=== PATIENT | female | born 1970 | race African-American/Black ===

== ENCOUNTER 2021-03-15 08:01 | Outpatient (REF) | payer MEDICAID, SELFPAY ==
--- NOTE | ~2021-03-15 | XR_ITS ---
EXAMINATION: XR ANKLE, RIGHT CLINICAL INFORMATION: Pain COMPARISON: None TECHNIQUE: AP, lateral, and mortise views of the right ankle. FINDINGS: No fracture, dislocation, destructive process. There are subchondral lucencies talar dome. This may be related to osteochondral lesions and/or occult degenerative changes. There is no joint narrowing or erosive changes. No subchondral sclerosis. No visible chondrocalcinosis. There is spurring at the distal anterior tibia and tip medial malleolus. The ankle mortise is symmetric. The subtalar joint is unremarkable. There is bulky plantar calcaneal spur and smaller posterior calcaneal spur. XR/XR ankle RT min 3V IMPRESSION: Subtle subchondral lucencies talar done which may be related to osteochondral lesions or degenerative changes. Calcaneal spurs.
== END 2021-03-15 08:02 | disposition home or self-care (01) ==
LOC: HO.HOSX 08:01
PROVIDERS: Visit Provider Physician Assistant
DX: M19.071 Primary osteoarthritis, right ankle and foot (principal)
CPT/HCPCS: 20600; 73610; 99202; J1020

== ENCOUNTER 2021-04-10 08:15 | Outpatient (REF) | payer MEDICAID, SELFPAY ==
[2021-04-10 10:57] LABS: HCG Quantitative < 2 mIU/mL; TSH reflex Free T4 1.49 uIU/mL (0.32-4.0)
[2021-04-10 15:44] LABS: CT PCR NOT DETECTED (Not Detect.); NG PCR NOT DETECTED (Not Detect.)
[2021-04-12 20:51] LABS: HPV mRNA E6/E7 rflx Not Detected (Not Detected)
== END 2021-04-10 08:16 | disposition home or self-care (01) ==
LOC: HO.LAB 08:15
PROVIDERS: PCP Internal Medicine; Visit Provider Obstetrics & Gynecology
DX: Z01.411 Encounter for gynecological examination (general) (routine) with abnormal findings (principal); Z11.51 Encounter for screening for human papillomavirus (HPV); N93.9 Abnormal uterine and vaginal bleeding, unspecified
CPT/HCPCS: 36415; 84443; 84702; 85027; 87491; 87591; 87624; 88142; 99202

== ENCOUNTER 2021-04-14 07:47 | Outpatient (REF) | payer MEDICAID, SELFPAY ==
[2021-04-14 08:39] LABS: Hemoglobin 8.9 g/dl (12.0-16.0); Mean Corpuscular Hemoglobin 18.7 pg (27.0-33.0); Mean Corpuscular Volume 69.3 fL (80.0-98.0); Platelet Count 251 X10*3/uL (160-400); Red Blood Count 4.76 X10*6/uL (4.20-5.50); Red Cell Distribution Width 24.2 % (11.0-16.0); White Blood Count 7.2 X10*3/uL (4.8-10.8)
== END 2021-04-14 07:48 | disposition home or self-care (01) ==
LOC: HO.LAB 07:47
PROVIDERS: PCP Internal Medicine; Visit Provider Obstetrics & Gynecology
DX: N93.9 Abnormal uterine and vaginal bleeding, unspecified (principal)
CPT/HCPCS: 36415; 85027

== ENCOUNTER 2021-05-05 09:29 | Day surgery (SDC) | payer MEDICAID, SELFPAY ==
[2021-05-05] VITALS (7 sets, daily range): BP systolic 110–123; BP diastolic 51–73; PULSE 92–105; RESP 20; TEMP 36.8–37.6; O2SAT 95–98; BMI 51.7
--- NOTE | ~2021-05-05 | FL_ITS ---
EXAMINATION: XR LUMBAR PUNCTURE CLINICAL INFORMATION: This is a 50-year-old female with possible pseudotumor cerebra I. The patient presents for measurement of opening pressures and to obtain cerebrospinal fluid. COMPARISON: None TECHNIQUE: Informed consent was obtained from the patient prior to the procedure. During this process, the procedure and potential alternatives were explained along with the intended outcome and benefits. The risks of the procedure including the possibility of an unsuccessful procedure, as well as the risk of not doing the procedure were discussed. The patient was given the opportunity to ask questions regarding the procedure and appear competent he decisions. A signed consent form was document this discussion was placed in the medical record. A time out procedure was performed. All elements of maximal sterile barrier technique followed including use of cap, mask, sterile gown, sterile gloves, a sterile full body drape and hand hygiene. Also followed skin preparation with 2% chlorhexidine for cutaneous antisepsis, and sterile ultrasound preparation with sterile gel and probe cover when applicable. SITE MARKING: As part of the preprocedure verification policy, a site marking procedure was initiated. Due to the nature the procedure, the insertion site could not be predetermined thus invoking the policy of exemption to site laterality and marking. Insertion site marking was performed in the procedure room in conjunction with imaging confirmation. The patient was placed prone on the fluoroscopic table. The patient's back was prepped and draped in usual sterile fashion. Using standard interventional and sterile technique a Sprotte needle was introduced into the cerebrospinal space. Orthogonal fluoroscopic views were obtained to confirm the position. Pressure measurements were obtained. After opening pressures were obtained fluid was drained. A total of 8 mL of clear fluid was drained. The specimens were placed in 4 separate tubes using standard technique. The specimens were marked appropriately and sent to the laboratory in order to inform the referring physician of the results. The needle was removed. Good hemostasis was achieved. A sterile dressing was placed. The patient was transferred from the room in unchanged condition. The patient was to lay flat for 3 hours in the recovery room. The patient will then be discharged home in good condition with written instructions. FINDINGS: Opening pressure: 12 mmHg. 8 mL of clear fluid was sent to the laboratory. FLUOROSCOPY TIME: 0.7 minutes. DOSE AREA PRODUCT: 0.792 uGy-m2 (microgray-meter squared) FL/FL guided lumbar puncture LP IMPRESSION: 1. Successful fluoroscopically guided lumbar puncture.
[2021-05-05 09:50] LABS: MANUAL DIFF FLAG NO
[2021-05-05 09:56] LABS: Basophils Absolute Auto 0.1 X10*3/uL (0.0-0.2); Basophils Percent Auto 0.8 % (0-2); Eosinophils Absolute Auto 0.2 X10*3/uL (0.0-0.4); Eosinophils Percent Auto 2.4 % (0-4); Hematocrit 32.6 % (37.0-47.0); Hemoglobin 8.9 g/dl (12.0-16.0); Imm Gran Abs Auto 0.01 X10*3/uL (0.00-0.03); Imm Gran Pct Auto 0.2 % (0.0-0.4); Lymphocytes Absolute Auto 2.3 X10*3/uL (1.2-4.9); Lymphocytes Percent Auto 34.5 % (20-40); Mean Corpuscular HGB Conc 27.3 g/dl (31.0-35.0); Mean Corpuscular Hemoglobin 19.4 pg (27.0-33.0); Mean Corpuscular Volume 71.2 fL (80.0-98.0); Mean Platelet Volume 10.4 fL (9.4-12.3); Monocytes Absolute Auto 0.6 X10*3/uL (0.1-1.2); Monocytes Percent Auto 8.3 % (2-11); Neutrophils Absolute Auto 3.6 x10*3/uL (2.0-8.3); Neutrophils Percent Auto 53.8 % (45-73); Platelet Count 238 X10*3/uL (160-400); Red Blood Count 4.58 X10*6/uL (4.20-5.50); Red Cell Distribution Width 23.5 % (11.0-16.0); White Blood Count 6.6 X10*3/uL (4.8-10.8)
[2021-05-05 10:00] LABS: INTERNATIONAL NORM RATIO 1.1 (0.9-1.1); Prothrombin Time 12.7 SEC (9.9-13.0)
[2021-05-05 10:02] LABS: Partial Thromboplastin Time 33.1 SEC (24.1-38.0)
[2021-05-05 12:38] LABS: CSF Appearance Clear, Colorless; CSF Tube # 3
[2021-05-05 12:50] LABS: Total Protein CSF 22.8 mg/dL (15-45)
[2021-05-05 12:53] LABS: Appearance CSF CLEAR; CSF Tube # 4; Color CSF COLORLESS; Lymphocytes CSF 100 %; Neutrophils CSF 0 %; Red Blood Cell CSF 2 MM*3; White Blood Cell CSF 1 MM*3
[2021-05-05 12:54] LABS: CSF Monos 0 %; CSF Other Cells % 0 %
[2021-05-05] MEDS: Acetaminophen 325 MG TABLET 650 MG PO (14:10)
[2021-05-05] MEDS: oxyCODONE HCl Immed Release 5 MG TABLET PO (14:11)
== END 2021-05-05 15:09 | disposition home or self-care (01) ==
PROVIDERS: Psychiatry & Neurology Neurology; Radiology Diagnostic Radiology; PCP Internal Medicine; Visit Provider Radiology Diagnostic Radiology
PROC: 009U3ZZ Drainage of Spinal Canal, Percutaneous Approach (ICD-10-PCS; CPT 62270; principal; 2021-05-05 11:00)
DX: G93.2 Benign intracranial hypertension (principal); I10 Essential (primary) hypertension; E11.9 Type 2 diabetes mellitus without complications; M79.7 Fibromyalgia; F32.9 Major depressive disorder, single episode, unspecified; Z79.84 Long term (current) use of oral hypoglycemic drugs; Z79.899 Other long term (current) drug therapy; F17.210 Nicotine dependence, cigarettes, uncomplicated
CPT/HCPCS: 36415; 62328; 84157; 85025; 85610; 85730; 87015; 87070; 87205; 89051

== ENCOUNTER 2021-05-17 10:26 | Outpatient (REF) | payer MEDICAID, SELFPAY ==
--- NOTE | 2021-05-17 10:15 | EMG_ITS ---
This is a 50-year-old woman with a 15-year history of diabetes, who comes in with more than 1 year history of worsening right hand numbness. PHYSICAL EXAMINATION: She is morbidly obese. Cranial nerves II through XII are normal. Muscle tone and strength are normal in all 4 extremities. No Tinel or Phalen sign. IMPRESSION: Carpal tunnel syndrome. Nerve conduction EMG study: Mild carpal tunnel syndrome on the right. Normal EMG of the right C5-T1 innervated muscles. MD AYANNA Douglass/FARTUN / [id number]
== END 2021-05-17 10:27 | disposition home or self-care (01) ==
LOC: HO.NEURO 10:26
PROVIDERS: PCP Internal Medicine; Visit Provider Internal Medicine
DX: G56.01 Carpal tunnel syndrome, right upper limb (principal)
CPT/HCPCS: 95885; 95910

== ENCOUNTER 2021-05-22 09:30 | Outpatient (REF) | payer MEDICAID, SELFPAY ==
[2021-05-22 10:53] LABS: Estimated Average Glucose 120 mg/dL; Hemoglobin A1c % 5.8 %
[2021-05-22 11:41] LABS: T4 Thyroxine 7.7 ug/dL (4.5-12.0)
[2021-05-23 15:51] LABS: Triiodothyronine T3 Free 3.1 pg/mL (2.3-4.2)
[2021-05-23 17:36] LABS: Thyroglobulin Antibodies <1 IU/mL (< or = 1); Thyroid Peroxidase Antibodies <1 IU/mL (<9)
== END 2021-05-22 09:31 | disposition home or self-care (01) ==
LOC: HO.LAB 09:30
PROVIDERS: PCP Internal Medicine; Visit Provider Optometrist
DX: N93.9 Abnormal uterine and vaginal bleeding, unspecified (principal); H05.20 Unspecified exophthalmos
CPT/HCPCS: 36415; 58100; 81025; 83036; 84436; 84443; 84481; 86376; 86800; 88305

== ENCOUNTER 2021-10-05 13:20 | Outpatient (REF) | payer MEDICAID, SELFPAY | END 2021-10-05 13:21 | disposition home or self-care (01) | LOC: HO.MDS 13:20 | PROVIDERS: Visit Provider Internal Medicine | DX: D50.9 Iron deficiency anemia, unspecified (principal) | CPT/HCPCS: 96365 ==

== ENCOUNTER 2021-10-11 12:08 | Outpatient (REF) | payer MEDICAID, SELFPAY | END 2021-10-11 12:09 | disposition home or self-care (01) | LOC: HO.MDS 12:08 | PROVIDERS: Visit Provider Internal Medicine | DX: D50.9 Iron deficiency anemia, unspecified (principal) | CPT/HCPCS: 96365; J1756 ==

== ENCOUNTER 2021-10-18 11:00 | Outpatient (REF) | payer MEDICAID, SELFPAY | END 2021-10-18 11:01 | disposition home or self-care (01) | LOC: HO.MDS 11:00 | PROVIDERS: Visit Provider Internal Medicine | DX: D50.9 Iron deficiency anemia, unspecified (principal) | CPT/HCPCS: 96365; J1756 ==

== ENCOUNTER 2022-12-20 18:18 | Outpatient (REF) | payer MEDICAID, SELFPAY ==
[2022-12-20 19:00] LABS: Influenza A PCR NEGATIVE (Negative); Influenza B PCR NEGATIVE (Negative); Resp Syncy Virus RNA Qual PCR NEGATIVE (Negative); SARS COV2 PCR INHOUSE NEGATIVE (Negative)
== END 2022-12-20 18:19 | disposition home or self-care (01) ==
LOC: HO.HHCLNP 18:18
PROVIDERS: Visit Provider Nurse Practitioner Primary Care
DX: R05.1 Acute cough (principal); Z11.52 Encounter for screening for COVID-19
CPT/HCPCS: 0241U; 87070

== ENCOUNTER 2023-01-31 12:51 | Outpatient (REF) | payer MEDICAID, SELFPAY ==
[2023-01-31 16:16] LABS: MANUAL DIFF FLAG NO
[2023-01-31 16:24] LABS: Basophils Absolute Auto 0.1 X10*3/uL (0.0-0.2); Basophils Percent Auto 0.5 % (0-2); Eosinophils Absolute Auto 0.2 X10*3/uL (0.0-0.4); Eosinophils Percent Auto 1.6 % (0-4); Hematocrit 46.9 % (37.0-47.0); Hemoglobin 14.4 g/dl (12.0-16.0); Imm Gran Abs Auto 0.03 X10*3/uL (0.00-0.03); Imm Gran Pct Auto 0.3 % (0.0-0.4); Lymphocytes Absolute Auto 3.8 X10*3/uL (1.2-4.9); Lymphocytes Percent Auto 36.7 % (20-40); Mean Corpuscular HGB Conc 30.7 g/dl (31.0-35.0); Mean Corpuscular Hemoglobin 25.5 pg (27.0-33.0); Mean Corpuscular Volume 83.2 fL (80.0-98.0); Monocytes Absolute Auto 0.7 X10*3/uL (0.1-1.2); Monocytes Percent Auto 6.6 % (2-11); Neutrophils Absolute Auto 5.6 x10*3/uL (2.0-8.3); Neutrophils Percent Auto 54.3 % (45-73); Platelet Count 278 X10*3/uL (160-400); Red Blood Count 5.64 X10*6/uL (4.20-5.50); Red Cell Distribution Width 15.9 % (11.0-16.0); White Blood Count 10.3 X10*3/uL (4.8-10.8)
[2023-01-31 16:37] LABS: Cholesterol 141 mg/dL (<200); HDL Cholesterol 35 mg/dL (>40); LDL Cholesterol Calculated 78 mg/dL (<100); Triglycerides 143 mg/dL (<150)
[2023-01-31 16:38] LABS: Alanine Aminotransferase 17 U/L (0-31); Albumin Level 4.1 g/dL (3.5-5.0); Alkaline Phosphatase 92 U/L (39-117); Anion Gap 13 (12-20); Aspartate Amino Transferase 14 U/L (5-31); Bilirubin Total 0.3 mg/dL (0.0-1.0); Blood Urea Nitrogen 12 mg/dL (9-16); Calcium 10.9 mg/dL (8.4-10.2); Carbon Dioxide 25 mmol/L (22-29); Chloride 108 mmol/L (96-108); Estimated Glomerular Filt Rate > 60; Glucose Random 93 mg/dL (60-115); Iron 49 mcg/dL (30-160); Percent Iron Saturation 13 % (15-50); Potassium 3.8 mmol/L (3.3-5.1); Sodium 142 mmol/L (135-145); Total Iron Binding Capacity 378 mcg/dL (228-428); Total Protein 8.2 g/dL (6.5-8.0); Unsaturated Iron Binding 329 ug/dL
[2023-01-31 16:46] LABS: Microalbum/Creatinine Ratio Ur 32.2 ug/mg cr (<30)
[2023-01-31 16:57] LABS: Ferritin 41 ng/mL (10-250); TSH reflex Free T4 1.66 uIU/mL (0.32-4.0)
[2023-01-31 17:09] LABS: Folate 6.3 ng/mL (> or = 4.0); Vitamin B12 705 pg/mL (200-900)
[2023-01-31 17:52] LABS: Reflex LDLD? No
== END 2023-01-31 12:52 | disposition home or self-care (01) ==
LOC: HO.HHCL 12:51
PROVIDERS: Visit Provider Family Medicine
DX: E11.9 Type 2 diabetes mellitus without complications (principal); D50.9 Iron deficiency anemia, unspecified; R35.0 Frequency of micturition
CPT/HCPCS: 36415; 80053; 80061; 82043; 82570; 82607; 82728; 82746; 83540; 84443; 85025; 87086

== ENCOUNTER 2023-04-26 13:29 | Outpatient (REF) | payer MEDICAID, SELFPAY ==
--- NOTE | ~2023-04-26 | XR_ITS ---
EXAMINATION: XR CHEST CLINICAL INFORMATION: Pneumonia of both lungs. COMPARISON: None available. TECHNIQUE: 2 views of the chest were obtained. FINDINGS: The trachea is in normal anatomic position. The cardiomediastinal silhouette is normal in size and configuration. There are linear opacities within the mid aspects of both lungs representing either linear atelectasis or scarring. There is no consolidation. There is no pleural effusion or pneumothorax. No acute osseous abnormality. XR/XR chest 2V IMPRESSION: Linear opacities within the mid lungs bilaterally represent either linear atelectasis or scarring. No consolidation.
== END 2023-04-26 13:30 | disposition home or self-care (01) ==
LOC: HO.HHCX 13:29
PROVIDERS: Visit Provider Nurse Practitioner Primary Care
DX: J18.9 Pneumonia, unspecified organism (principal)
CPT/HCPCS: 71046

== ENCOUNTER 2023-08-09 14:37 | Outpatient (REF) | payer MEDICAID, SELFPAY ==
[2023-08-09 16:14] LABS: MANUAL DIFF FLAG NO
[2023-08-09 16:17] LABS: Basophils Percent Auto 0.4 % (0-2); Eosinophils Absolute Auto 0.1 X10*3/uL (0.0-0.4); Eosinophils Percent Auto 0.9 % (0-4); Hematocrit 44.1 % (37.0-47.0); Imm Gran Abs Auto 0.02 X10*3/uL (0.00-0.03); Imm Gran Pct Auto 0.2 % (0.0-0.4); Lymphocytes Absolute Auto 3.3 X10*3/uL (1.2-4.9); Lymphocytes Percent Auto 30.6 % (20-40); Mean Corpuscular HGB Conc 31.7 g/dl (31.0-35.0); Mean Corpuscular Hemoglobin 26.4 pg (27.0-33.0); Mean Corpuscular Volume 83.1 fL (80.0-98.0); Mean Platelet Volume 11.6 fL (9.4-12.3); Monocytes Absolute Auto 0.8 X10*3/uL (0.1-1.2); Monocytes Percent Auto 7.2 % (2-11); Neutrophils Absolute Auto 6.5 x10*3/uL (2.0-8.3); Neutrophils Percent Auto 60.7 % (45-73); Platelet Count 227 X10*3/uL (160-400); Red Blood Count 5.31 X10*6/uL (4.20-5.50); Red Cell Distribution Width 15.5 % (11.0-16.0); White Blood Count 10.8 X10*3/uL (4.8-10.8)
[2023-08-09 16:40] LABS: Estimated Average Glucose 117 mg/dL; Hemoglobin A1c % 5.7 % (<6.0)
[2023-08-09 16:50] LABS: Alanine Aminotransferase 17 U/L (0-31); Albumin Level 4.2 g/dL (3.5-5.0); Alkaline Phosphatase 82 U/L (39-117); Anion Gap 16 (12-20); Aspartate Amino Transferase 29 U/L (5-31); Bilirubin Total 0.3 mg/dL (0.0-1.0); Blood Urea Nitrogen 12 mg/dL (9-16); Calcium 10.4 mg/dL (8.4-10.2); Carbon Dioxide 21 mmol/L (22-29); Chloride 108 mmol/L (96-108); Estimated Glomerular Filt Rate > 60; Glucose Random 101 mg/dL (60-115); Potassium 3.9 mmol/L (3.3-5.1); Sodium 141 mmol/L (135-145); Total Protein 8.1 g/dL (6.5-8.0)
[2023-08-09 17:09] LABS: TSH reflex Free T4 1.91 uIU/mL (0.32-4.0)
== END 2023-08-09 14:38 | disposition home or self-care (01) ==
LOC: HO.HHCL 14:37
PROVIDERS: Visit Provider Student in an Organized Health Care Education/Training Program
DX: E11.9 Type 2 diabetes mellitus without complications (principal)
CPT/HCPCS: 36415; 80053; 83036; 84443; 85025

== ENCOUNTER 2023-10-29 11:56 | Outpatient (REF) | payer MEDICAID, SELFPAY | END 2023-10-29 11:57 | disposition home or self-care (01) | LOC: HO.HHCL 11:56 | PROVIDERS: Visit Provider Family Medicine | DX: Z13.89 Encounter for screening for other disorder (principal) ==

== ENCOUNTER 2023-11-15 10:49 | Outpatient (AMB) | payer MEDICAID, SELFPAY ==
--- NOTE | 2023-11-15 07:49 | A.OFFVIS_ITS ---
Intake Visit Reasons: Current Smoker Allergies aspirin [ASA] Adverse Reaction (Verified 05/22/21 10:21) GI INTOLERANCE HPI HPI Current Smoker: Details: Initial visit for this 53yo smoker with a 40PYH. Patient started smoking at age 8 for 45 years at 1-1.5ppd. Currently at 1/4ppd. . Reports marijuana use daily. Denies second hand smoke exposure. Denies exposure to chemicals or substances like asbestos. . Denies known family history of lung cancer. Denies personal history of cancers. Denies chest CT in last year. . Denies recent travel outside the [place]. Denies recent respiratory illness or recent hospitalization for respiratory issues. Admits testing positive for COVID. Admits receiving COVID Vaccine. . Denies fever, chills, new/worsening cough, hemoptysis, hoarseness or dysphagia. Denies significant chest pain, significant dyspnea or unintentional weight loss. Patient Lung Cancer Screening Questionnaire reviewed with patient by provider. . Shared Decision Making Completed. Patient meets criteria. Discussed in detail with patient, the risk vs benefit of LDCT screening. Patient consents to proceed with scan. Discussed smoking cessation. [facility] Medical History (Updated 11/15/23 @ 11:11 by Trena Guido PA-C) Fibromyalgia Pseudotumor cerebri HTN (hypertension) Hyperlipidemia Diabetes GERD (gastroesophageal reflux disease) SUDHAKAR (obstructive sleep apnea) Asthma Nicotine dependence, cigarettes, uncomplicated Iron deficiency anemia Morbid obesity Vertigo Carpal tunnel syndrome Surgical History (Updated 09/10/23 @ 12:27 by Trena Guido PA-C) Hx of removal of cyst History of ankle surgery Family History Mother Diabetes Maternal Aunt Pancreatic cancer Father ESRD (end stage renal disease) Social History (Updated 11/15/23 @ 11:11 by Trena Guido PA-C) Household Members: Other Household Members Other:: father Housing: House Patient Tobacco Use Status: Current everyday Tobacco user Tobacco use type: Cigarette Years Smoked: (onset 8yo, 1-1.5ppd x 45yrs, now 1/4ppd - 40pyh) Substance Use Type: Marijuana service: No Current occupational status: unemployed 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 - Patient meets criteria for LDCT for lung cancer screening purposes and is asymptomatic. - Smoking cessation counseling offered. Patients can always call [phone]. - Will arrange for a LDCT scan of the chest for screening purposes at [facility]. - Risks, benefits, and alternatives were discussed in detail and the patient agrees to proceed. - Risks discussed include but are not limited to: radiation exposure, anxiety during testing and while awaiting results, false negatives, false positives and possibility of additional intervention such as further imaging or surgical procedures for benign disease. - Benefits are obviously detection of lung cancer at an early stage which can lead to improved outcomes. - Discussed the importance of screening program compliance with adherence to yearly LDCT scan as scheduled - or sooner interval scans for personalized screening regimen. - Discussed follow up plan. Our office will send a letter discussing results and if needed set up phone call and office visit based on CT findings. - Patient educated on results categorization and the management decisions for s uspicious findings potentially found on the screening LDCT scan. Any patient with a Lung RADS score of 3 or 4 will be reviewed by a multidisciplinary team at [facility] to form a plan of action in regards to scan findings. - If further work up is warranted for a suspicious lung finding this will be followed by the Lung Cancer Screening program in conjunction with the Thoracic Surgery Department at [facility]. - A copy of the office note and LDCT will be sent to the patient's PCP - as well as documentation on any associated further plans of care. - Incidental findings on LDCT are the PCP's responsibility. These findings are indicated with an S finding on the LDCT Assessment. A note discussing the findings will be sent to the PCP who is then responsible for further management. - All questions answered.? Coding Level of Care Code Lung Cancer Screening G0296 Diagnoses Nicotine dependence, cigarettes, uncomplicated F17.210
== END 2023-11-15 11:22 | disposition home or self-care (01) ==
PROVIDERS: Visit Provider Physician Assistant Medical
DX: F17.210 Nicotine dependence, cigarettes, uncomplicated (principal)
CPT/HCPCS: G0296

== ENCOUNTER 2023-11-15 11:10 | Outpatient (REF) | payer MEDICAID, SELFPAY ==
--- NOTE | ~2023-11-15 | CT_ITS ---
EXAMINATION: CT LOW-DOSE SCREENING CHEST WITHOUT CONTRAST CLINICAL INFORMATION: Nicotine dependence, cigarettes, uncomplicated. The patient is a current smoker with a 44 pack-year history of smoking. COMPARISON: None available. TECHNIQUE: Multidetector volumetric CT imaging of the chest is performed on a Siemens SOMATOM Definition scanner without contrast using low dose technique. Additional 2D coronal and sagittal reformatted images and axial 3D maximum intensity projection (MIP) images are generated on the CT workstation. This CT examination was performed using dose optimization techniques as appropriate, variously including the following: *Automated exposure control *Adjustment of mA and/or kV according to patient size (this includes techniques or standardized protocols for targeted exams where dose is matched to indication/reason for exam; i.e. extremities or head) *Use of iterative reconstruction technique TOTAL EXAM DLP: 97 mGy-cm. CTDIvol: 3.02 mGy. FINDINGS: PULMONARY NODULES: No suspicious pulmonary nodules. LUNGS: Lungs bilaterally symmetrically expanded. There is mild emphysema and bronchial thickening without bronchiectasis. There is left upper lobe along with left lower lobe atelectasis/scarring. No effusion or pneumothorax. Central airways patent. MEDIASTINUM: No mediastinal, hilar or axillary adenopathy or free fluid collection. CORONARY ARTERY CALCIFICATION: None visualized on this study. THYROID GLAND: Unremarkable to the extent seen. CARDIOVASCULAR STRUCTURES: Aortic and heart size normal. No pericardial effusion. CHEST WALL/AXILLA: Unremarkable. UPPER ABDOMEN: Included portions of the solid organs in the upper abdomen unremarkable on noncontrast imaging. OSSEOUS STRUCTURES: No suspicious focal findings. CT/CT lung screening IMPRESSION: No findings seen suspicious for malignancy. ASSESSMENT: 1. Lung-RADS Category 1: Negative. There are no nodules or there are definitely benign nodules. N/A 2. Lung-RADS Category S: Negative. There are no clinically significant or potentially clinically significant findings not related to the lungs requiring urgent additional evaluation. RECOMMENDATION: Continued routine annual low-dose CT lung screening in 1 year is recommended. An order for CT CHEST LOW DOSE CANCER SCREENING ([id number]) can be placed. Electronically signed by: Gurpreet Malik MD 01/09/2024 05:00 PM [facility]
== END 2023-11-15 11:11 | disposition home or self-care (01) ==
LOC: HO.CT 11:10
PROVIDERS: Visit Provider Nurse Practitioner Family
DX: Z12.2 Encounter for screening for malignant neoplasm of respiratory organs (principal); F17.210 Nicotine dependence, cigarettes, uncomplicated
CPT/HCPCS: 71271; G0296

== ENCOUNTER 2023-11-20 11:51 | Outpatient (REF) | payer MEDICAID, SELFPAY ==
[2023-11-20 14:24] LABS: Parathyroid Hormone Intact 165.4 pg/mL (8.7-77.1)
[2023-11-20 14:27] LABS: Vitamin D 25-OH Total 18.9 ng/mL (>30)
== END 2023-11-20 11:52 | disposition home or self-care (01) ==
LOC: HO.HHCL 11:51
PROVIDERS: Visit Provider Family Medicine
DX: E55.9 Vitamin D deficiency, unspecified (principal)
CPT/HCPCS: 36415; 82306; 83970

== ENCOUNTER 2024-01-17 11:56 | Outpatient (REF) | payer MEDICAID, SELFPAY ==
[2024-01-17 13:07] LABS: MANUAL DIFF FLAG NO
[2024-01-17 13:16] LABS: Basophils Percent Auto 0.4 % (0-2); Eosinophils Absolute Auto 0.2 X10*3/uL (0.0-0.4); Eosinophils Percent Auto 1.6 % (0-4); Hematocrit 42.1 % (37.0-47.0); Hemoglobin 13.5 g/dl (12.0-16.0); Imm Gran Abs Auto 0.03 X10*3/uL (0.00-0.03); Imm Gran Pct Auto 0.3 % (0.0-0.4); Lymphocytes Absolute Auto 2.9 X10*3/uL (1.2-4.9); Mean Corpuscular HGB Conc 32.1 g/dl (31.0-35.0); Mean Corpuscular Hemoglobin 27.2 pg (27.0-33.0); Mean Corpuscular Volume 84.9 fL (80.0-98.0); Monocytes Absolute Auto 0.5 X10*3/uL (0.1-1.2); Monocytes Percent Auto 5.6 % (2-11); Neutrophils Percent Auto 62.1 % (45-73); Platelet Count 250 X10*3/uL (160-400); Red Blood Count 4.96 X10*6/uL (4.20-5.50); Red Cell Distribution Width 14.2 % (11.0-16.0); White Blood Count 9.7 X10*3/uL (4.8-10.8)
[2024-01-17 13:35] LABS: Alanine Aminotransferase 17 U/L (0-31); Albumin Level 3.8 g/dL (3.5-5.0); Alkaline Phosphatase 80 U/L (39-117); Anion Gap 11 (12-20); Aspartate Amino Transferase 16 U/L (5-31); Bilirubin Total 0.2 mg/dL (0.0-1.0); Blood Urea Nitrogen 12 mg/dL (9-16); Calcium 10.8 mg/dL (8.4-10.2); Carbon Dioxide 28 mmol/L (22-29); Chloride 106 mmol/L (96-108); Estimated Glomerular Filt Rate > 60; Glucose Random 96 mg/dL (60-115); Potassium 3.7 mmol/L (3.3-5.1); Sodium 141 mmol/L (135-145); Total Protein 7.2 g/dL (6.5-8.0)
[2024-01-17 13:54] LABS: Vitamin D 25-OH Total 25.4 ng/mL (>30)
[2024-01-17 14:17] LABS: Parathyroid Hormone Intact 110.9 pg/mL (8.7-77.1)
== END 2024-01-17 11:57 | disposition home or self-care (01) ==
LOC: HO.HHCL 11:56
PROVIDERS: Visit Provider Nurse Practitioner Family
DX: E83.52 Hypercalcemia (principal)
CPT/HCPCS: 36415; 80053; 82306; 83970; 85025

== ENCOUNTER 2024-02-13 10:25 | Outpatient (REF) | payer MEDICAID, SELFPAY ==
[2024-02-13 13:53] LABS: Alanine Aminotransferase 20 U/L (0-31); Albumin Level 4.1 g/dL (3.5-5.0); Alkaline Phosphatase 74 U/L (39-117); Anion Gap 9 (12-20); Aspartate Amino Transferase 20 U/L (5-31); Bilirubin Total 0.3 mg/dL (0.0-1.0); Blood Urea Nitrogen 12 mg/dL (9-16); Calcium 10.8 mg/dL (8.4-10.2); Carbon Dioxide 25 mmol/L (22-29); Chloride 110 mmol/L (96-108); Cholesterol 174 mg/dL (<200); Estimated Glomerular Filt Rate 55; Glucose Random 103 mg/dL (60-115); HDL Cholesterol 36 mg/dL (>40); LDL Cholesterol Calculated 114 mg/dL (<100); Potassium 3.8 mmol/L (3.3-5.1); Sodium 140 mmol/L (135-145); TSH reflex Free T4 1.74 uIU/mL (0.32-4.0); Total Protein 7.9 g/dL (6.5-8.0); Triglycerides 123 mg/dL (<150)
[2024-02-13 14:03] LABS: Reflex LDLD? No
[2024-02-13 14:19] LABS: Folate 7.2 ng/mL (> or = 4.0); Vitamin B12 635 pg/mL (200-900)
[2024-02-13 14:28] LABS: Creatinine Urine 486.05 mg/dL
[2024-02-21 15:03] LABS: TSpotTB Invalid (Negative)
== END 2024-02-13 10:26 | disposition home or self-care (01) ==
LOC: HO.HHCL 10:25
PROVIDERS: Visit Provider Family Medicine
DX: Z11.1 Encounter for screening for respiratory tuberculosis (principal)
CPT/HCPCS: 36415; 80053; 80061; 82043; 82570; 82607; 82746; 84443; 86481

== ENCOUNTER 2024-12-24 11:49 | Outpatient (REF) | payer MEDICAID, SELFPAY ==
--- OUTSIDE RECORDS SUMMARY | 2024-12-24 11:15 | XMS_ITS | Encounter Summary ---
Author Organization [employer] Address [address] [place] [address] Care Team Providers Care Event Host Name Role Phone Sylvia Sheriff MD Primary Care Provider [phone] Yasmeen Tomas Unavailable Encounter Details Date Type Department Care Team ([facility] st Contact Info) Description 12/24/2024 11:15 AM EDT Office Visit [facility] [address], [place] [id number] Sylvia Sheriff MD [address] [place] [address] Type 2 diabetes mellitus with other specified complication, without long-term current use of insulin ([facility]) Social History Tobacco Use Types Packs/Day Years Used Date Smoking Tobacco: Every Day Cigarettes Passive Smoke Exposure: Current Smokeless Tobacco: Current Alcohol Use Standard Drinks/Week Comments Yes 0 (1 standard drink = 0.6 oz pur e alcohol) Sometimes Depression Answer Date Recorded Patient Health Questionnaire-9 Score 6 12/24/2024 Patient Health Questionnaire-9 Score 6 12/24/2024 Last PHQ-9: Questionnaire Data Not on file 1 Housing Stability Answer Date Recorded What is your housing situation today? I have juan pablo johnson 12/24/[address] you li ve. Do you have problems with any of the following? None of the above 12/24/2024 Food Insecurity Answer Date Recorded Within the past 12 months, y ou worried that your food would run out before you got money to buy more: Never True 12/24/2024 Within the past 12 months,th e food you bought just didn't last and you didn't have enough money to get more: Never True Transportation Answer Date Recorded In the past 12 months, has l ack of transportation kept you from medical appts, meetings, work or from getting things needed for daily living? No 12/24/2024 Utilities Answer Date Recorded In the past 12 months, has t he electric, gas, oil or water company threatened to shut off services in your home? No 12/24/2024 Depression Answer Date Recorded Patient Health Questionnaire-2 Score 2 12/24/2024 Internet Access Answer Date Recorded Internet Access Q1 Yes 10/25/2023 Internet Access Q2 Not on file 10/25/2023 Comments Unknown Sex and Gender Information Value Date Recorded Sex Assigned at Female 12/25/2021 10:39 AM EDT Legal Sex Female 10:39 AM EDT Gender Identity Female 12/25/2021 10:39 AM EDT Sexual Orientation Straight 12/25/2021 10 :39 AM EDT documented as of this encounter Last Filed Vital Signs Vital Sign Reading Time Taken Comments Blood Pressure 150/98 12/24/2024 11:14 AM EDT Pulse 96 12/24/2024 11:14 AM EDT Temperature 35.5 C (95.9 F) 12/24/2024 11:14 AM EDT Respiratory Rate 20 12/24/2024 11:14 AM EDT Oxygen Saturation 95% 12/24/2024 11:14 AM EDT Inhaled Oxygen Concentration - - Weight 128 kg (281 lb 6.4 oz) 12/24/2024 11:14 A M EDT Height 170.2 cm (5' 7 ) 12/24/2024 11:14 AM EDT Body Mass Index 44.07 12/24/2024 11:14 AM EDT documented in this encounter Functional Status * Over the past 2 weeks, how often have you been bothered by any of the following problems? Question Answer Date of Assessment Author Patient Health Questionnaire -2 Score 2 12/24/2024 11:17 AM EDT Lissa Tomas MA * Little interest or pleasure in doing things Answer Date of Assessment Author Several days 12/24/2024 11:17 AM EDT Adela Tomas MA * Feeling down, depressed, or hopeless Answer Date of Assessment Author Several days 12/24/2024 11:17 AM Adela Pham MA * Trouble falling or staying asleep, or sleeping too much Answer Date of Assessment Author Several days 12/24/2024 11:17 AM Adela Pham MA * Feeling tired or having little energy Answer Date of Assessment Author Several days 12/24/2024 11:17 AM Adela Pham MA * Poor appetite or overeating Answer Date of Assessment Author Not at all 12/24/2024 11:17 AM Adela Pham MA * Feeling bad about yourself - or that you are a failure or have let yourself or your family down Answer Date of Assessment Author More than half the days 12/24/2024 11:17 AM Adela Pham MA * Trouble concentrating on things, such as reading the newspaper or watching television Answer Date of Assessment Author Not at all 12/24/2024 11:17 AM Adela Pham MA * Moving or speaking so slowly that other people could have noticed? Or the opposite - being so fidgety or restless that you have been moving around a lot more than usual. Answer Date of Assessment Author Not at all 12/24/2024 11:17 AM Adela Pham MA * Thoughts that you would be better off or hurting yourself in some way Answer Date of Assessment Author Not at all 12/24/2024 11:17 AM Adela Pham MA * Patient Health Questionnaire-9 Score Answer Date of Assessment Author 6 12/24/2024 11:17 AM Adela Pham MA * How difficult have these problems made it for you to do your work, take care of things at home, or get along with other people? Answer Date of Assessment Author Somewhat difficult 12/24/2024 11:17 AM Adela Joiner MA * Over the last 2 weeks, how often have you been bothered by any of the following problems? Question Answer Date of Assessment Author Feeling nervous, anxious, or on edge 1 12/24/2024 11:17 AM Lissa Pham MA Not being able to stop or control worrying 2 12/24/2024 11:17 AM Lissa Pham MA Worrying too much about different things 2 12/24/2024 11:17 AM EDT Lissa Tomas MA Trouble relaxing 1 12/24/2024 11:17 AM Adela Pham MA Being so restless that it is hard to sit still 0 12/24/2024 11:17 AM MISHAT Lissa Tomas MA Becoming easily annoyed or irritable 2 12/24/2024 11:17 AM MISHAT Lissa Tomas MA Feeling afraid as if somethi ng awful might happen 1 12/24/2024 11:17 AM EDLissa Grider MA KEELY-7 Total Score 9 12/24/2024 11:17 AM Adela Pham MA documented as of this encounter Plan of Treatment Not on file documented as of this encounter Procedures Procedure Name Priority Date/Time Associated Diagnosis Comments POCT GLYCOSYLATED HEMOGLOBIN (HGB A1C) Routine 12/24/2024 11:13 AM EDT Type 2 diabetes mellitus with other specified complication, without long-term current use of insulin (HCC) POCT GLUCOSE Routine 12/24/2024 11:10 AM EDT Type 2 diabetes mellitus with other specified complication, without long-term current use of insulin (HCC) documented in this encounter Results * (ABNORMAL) POCT glycosylated hemoglobin (Hgb A1c) (12/24/2024 11:13 AM EDT) Hemoglobin A1C 6.1(A) 4.0 - 5.7 % QC Media Lot # [id number] Lot# Expiration Date Blood Capillary blood specimen / Unknown 12/24/2024 11:13 AM EDT Sylvia Sheriff MD POINT OF CARE TEST ENTER/EDIT OR DERABLES Final Result * POCT glucose manually resulted (12/24/2024 11:10 AM EDT) Glucose Blood, POC 112 60 - 200 mg/dL QC Media Lot # [id number] Lot# Expiration Date Blood Capillary blood specimen / Unknown 12/24/2024 11:10 AM EDT Sylvia Sheriff MD POINT OF CARE TEST ENTER/EDIT OR DERABLES Final Result documented in this encounter Visit Diagnoses Diagnosis Type 2 diabetes mellitus with other specified complication, without long-term current use of insulin (HCC) documented in this encounter Additional Health Concerns Assessment Noted Time PHQ-9 Depression Total Score: 6 12/25/19 25 11:17 AM EDT documented as of this encounter Care Teams Event Host Relationship Specialty Start Date End Date Sylvia Sheriff MD [address] [place] [address] PCP - General Family Medicine 01/26/22 Yasmeen Tomas Community Health Worker 08/12/23 Justus Rainey Health Safety EngineerAircraft Instrument Tester 01/08/24 documented as of this encounter
[2024-12-24 13:15] LABS: MANUAL DIFF FLAG NO
[2024-12-24 13:29] LABS: Hematocrit 48.2 % (37.0-47.0); Hemoglobin 15.2 g/dl (12.0-16.0); Imm Gran Abs Auto 0.02 X10*3/uL (0.00-0.03); Imm Gran Pct Auto 0.3 % (0.0-0.4); Lymphocytes Absolute Auto 1.6 X10*3/uL (1.2-4.9); Mean Corpuscular HGB Conc 31.5 g/dl (31.0-35.0); Mean Corpuscular Hemoglobin 26.8 pg (27.0-33.0); Mean Corpuscular Volume 84.9 fL (80.0-98.0); NRBC Abs Auto 0.000 X10*3/uL (0.0-0.012); NRBC Pct Auto 0.0 /100WBC (0.0-0.2); Platelet Count 172 X10*3/uL (160-400); Red Blood Count 5.68 X10*6/uL (4.20-5.50); White Blood Count 6.6 X10*3/uL (4.8-10.8)
[2024-12-24 13:58] LABS: Alanine Aminotransferase 20 U/L (0-31); Albumin Level 4.4 g/dL (3.5-5.0); Alkaline Phosphatase 77 U/L (39-117); Anion Gap 11 (12-20); Aspartate Amino Transferase 19 U/L (5-31); Blood Urea Nitrogen 10 mg/dL (9-16); Calcium 10.4 mg/dL (8.4-10.2); Carbon Dioxide 26 mmol/L (22-29); Chloride 109 mmol/L (96-108); Cholesterol 155 mg/dL (<200); Estimated Glomerular Filt Rate > 60; HDL Cholesterol 34 mg/dL (>40); Potassium 3.7 mmol/L (3.3-5.1); Sodium 142 mmol/L (135-145); Total Protein 7.9 g/dL (6.5-8.0); Triglycerides 94 mg/dL (<150)
[2024-12-24 14:18] LABS: Parathyroid Hormone Intact 234.4 pg/mL (8.7-77.1)
--- OUTSIDE RECORDS SUMMARY | 2024-12-24 14:50 | XMS_ITS | Encounter Summary ---
Author Organization [facility] Address [address] [place] [address] Care Team Providers Care Journeyman Sheet Metal Worker Name Role Phone Unavailable Primary Care Provider Unavailabl e Reason for Visit * Reason Comments Medication Refill Encounter Details Date Type Department Care Team (Late st Contact Info) Description 06/30/2022 Refill [facility] [address] [place] [address] Hemanth Barnhart MD [address] [place] [address] Medication Refill Social History Tobacco Use Types Packs/Day Years Used Date Smoking Tobacco: Every Day Cigarettes Last attempted to quit: 03/30/2013 Smokeless Tobacco: Never Comments:2-3 cigarettes a da y Alcohol Use Standard Drinks/Week Comments Yes 0 (1 standard drink = 0.6 oz pur e alcohol) 2 shots in a month PHQ-2 Answer Date Recorded PHQ-2 Total Score 0 06/16/2020 Comments No Sex and Gender Information Value Date Recorded Sex Assigned at Female 05/29/2019 9:38 AM EDT Legal Sex Female 6:49 AM EST Gender Identity Female 05/29/2019 9:38 AM EDT Sexual Orientation Straight 03/08/2020 2: 01 PM EST documented as of this encounter Plan of Treatment Not on file documented as of this encounter Visit Diagnoses Not on filedocumented in this encounter Additional Health Concerns Assessment Noted Time PHQ-9 Depression Total Score: 0 06/17/19 21 10:00 AM EDT documented as of this encounter
--- OUTSIDE RECORDS SUMMARY | 2024-12-24 14:50 | XMS_ITS | Encounter Summary ---
Author Organization [facility] and [facility] Address [address] [place] [phone] Care Team Providers Care Professor Of Business Name Role Phone Hemanth Barnhart MD Primary Care Provider + Encounter Details Date Type Department Care Team (Late st Contact Info) Description 05/18/2010 Abstract [facility] [address], [address] [place] [address] Harley Pizano MD [address] [place] [phone] Social History Tobacco Use Types Packs/Day Years Used Date Smoking Tobacco: Never Assessed Comments Unknown Sex and Gender Information Value Date Recorded Sex Assigned at Female 05/29/2019 9:38 AM EDT Legal Sex Female 6:49 AM EST Gender Identity Female 05/29/2019 9:38 AM EDT Sexual Orientation Straight 03/08/2020 2: 01 PM EST documented as of this encounter Plan of Treatment Not on file documented as of this encounter Procedures Procedure Name Priority Date/Time Associated Diagnosis Comments NOCTURNAL POLYSOMNOGRAPHY Routine 05/18/2010 12:53 PM EDT documented in this encounter Results * Nocturnal Polysomnography (05/18/2010 12:53 PM EDT) Impressions Tamia Arriaga - 05/18/2010 12:53 PM EDT PATIENT NAME: Jen Padgett DATE OF SERVICE: 05/18/2010 DATEOF INTERPRETATION: 05/26/2010 DATE OF : 1970 REFERRING PHYSICIAN: Carleen Harden M.D. POLYSOMNOGRAPHY DIAGNOSTIC PROCEDURE: The patient was monitored for assessment of sleep and respiration using a Stick and Play polysomnography data acquisition system. This system was used to monitor ECG, EEG (minimum 3 EEG derivations sampling the frontal, central, and occipital lobes), right and left eye movements (E1, E2), chin EMG and right and left tibialis anterior EMG. Arterial oxygen saturation was measured using a pulse oximeter. Nasal pressure transducer and oronasal thermal sensor were used to monitor nasal and oral airflow. Bands were used to monitor ribcage and abdominal excursions. All events were recorded simultaneously at a speed of 10mm/second. The study was collected, scored and interpreted based on the Rules, Terminology and Technical Specification of The AASM Manual for the Scoring of Sleep and Associated Events. DEFINITIONS: Apneas are defined as at least 80% reduction in airflow for greater than 10 seconds. Hypopnea is defined as at least 30% reduction in airflow signal lasting more than 10 seconds and be associated with at least 4% oxygen desaturations or paradoxic thoracoabdominal movement lasting equal to or greater than 10 seconds and associated with at least 4% desaturations. Respiratory Effort Related Arousals (RERA) is defined as any decrement in flow rates, crescendo snoring, or paradoxic thoracoabdominal movement lasting equal to or greater than 10 seconds and associated with arousals. Apnea-Hypopnea Index (AHI) is the sum of apneas and hypopneas and Breathing Disturbance Index (BDI) is the sum of apneas, hypopneas, and RERAs. INDICATIONS: The patient is a 39-year-old female weighing 294 lbs. and 5'7 tall with loud habitual snoring. The [place] Sleepiness Scale is 4 out of 24. The medical history is remarkable for obesity, hypertension, gastroesophageal reflux, asthma as a child, and right ankle surgery on the following medications: Meclizine, Elavil, Protonix, Naprosyn, and Diamox. The patient smokes one half pack of cigarettes a day and reports no alcohol intake. Jen Padgett, Page 2 FINDINGS: A polysomnography was performed on the night of 05/18/2010 from 10:48:23 p.m. until 6:30:24 a.m. The patient's usual bedtime at home is 1:00 a.m. with a rising time of 7:00 a.m. Sleep latency is reported within 10 minutes. The Time-in-Bed, Sleep-Period Time, Total-Sleep Time, and Sleep Efficiency (TST/TIB) were 462.3 minutes, 430.5 minutes, 408.5 minutes, and 88.4%, respectively. REM latency was 134.0 minutes. The latencies to Stages N1 and N2 sleep were 0.0 and 5.0 minutes, respectively. The sleep architecture, off CPAP, was as follows (as a percentage of Total-Sleep Time): Minutes % TST Wake Time after Sleep Onset: 22 Stage N1: 15 3 Stage N2: 241 59 Stage N3: 76 18 REM: 76 18 Sleep efficiency TST/TIB: 88.4% There were a total of 229 arousals with an Arousal Index of 30/hr. Of those, 45 were respiratory arousals. The patient had no periodic leg movements. The patient slept on her back and sides with intermittent and continuous loud snoring. In addition, there were a total of 100 respiratory events as follows: Number Mean Duration (sec) Obstructive Apneas: 11 16.5 Central Apneas: 0 0.0 Mixed Apneas: 0 0.0 Hypopneas: 50 23.7 RERAs: 39 20.2 The Apnea-Hypopnea Index through the night was 9.0/hr with a Breathing Disturbance Index of 15/hr. In REM the AHI was 34.7. In the supine position the AHI was 8.2. With patient awake and breathing ambient air, the average arterial oxygen saturation was 96% and during sleep the average arterial oxygen saturation was 93% with a claudette arterial oxygen saturation of 56%. The electrocardiographic monitoring showed sinus rhythm with an average heart rate asleep of 89/bpm. IMPRESSION: There is evidence for obstructive sleep apnea with an Apnea-Hypopnea Index of 9/hr and Breathing Disturbance Index of 15/hr. The apneas were more severe during REM sleep and were associated with oxygen desaturations to a lowest of 56%. Due to the scatter of apneas, the patient did not undergo a split-night study. Jen Padgett, Page 3 RECOMMENDATIONS: In view of her symptomatology, severity of sleep apnea, oxygen desaturations, and underlying hypertension, she is a candidate for treatment. The patient will be scheduled to return for CPAP titration to determine the optimal CPAP level. Harley Pizano M.D., FCCP, FAASM Diplomate, [place] Board of [employer] Medicine [place] A: Obstructive Sleep Apnea VM:ab Dictated 05/26/2010/Transcribed 05/29/2010 us Historical Provider SLEEP CENTER ORDERABLES Audrey l Result documented in this encounter Visit Diagnoses Not on filedocumented in this encounter Additional Health Concerns Infection Onset Date Last Indicated Resolved Time R/O COVID-19 07/12/2019 07/13/2019 07/14/2019 10:2 7 PM EDT COVID-19 07/13/2019 07/13/2019 08/12/2019 7:18 PM EDT R/O COVID-19 10/25/2020 10/25/2020 11/04/2020 7:18 PM EDT documented as of this encounter Care Teams Professor Of Business Relationship Specialty Start Date End Date Hemanth Barnhart MD [address] [place] [phone] PCP - General Internal Medicine 08/20/15 11/01/21 documented as of this encounter
--- OUTSIDE RECORDS SUMMARY | 2024-12-24 14:50 | XMS_ITS | Encounter Summary ---
Author Organization [employer] Address [address] [facility] 7t [place] [address] Care Team Providers Care Ortho Assistant Name Role Phone Sylvia Sheriff MD Primary Care Provider [phone] Yasmeen Tomas Unavailable Encounter Details Date Type Department Care Team (Latest Contact Info) Description 12/24/2024 Travel Social History Tobacco Use Types Packs/Day Years [...] AM EDT documented as of this encounter Functional Status * Over the past 2 weeks, how often have you been bothered by any of the following problems? Question Answer Date of Assessment Author Patient Health Questionnaire -2 Score 2 12/24/2024 11:17 AM Lissa Pham MA * Little interest or pleasure in doing things Answer Date of Assessment Author Several days 12/24/2024 11:17 AM Adela Pham MA * Feeling down, depressed, or hopeless [...] Assessment Author Somewhat difficult 12/24/2024 11:17 AM MISHAT Adela Rodriguez MA * Over the last 2 weeks, how often have you been bothered by any of the following problems? Question Answer Date of Assessment Author Feeling nervous, anxious, or on edge 1 12/24/2024 11:17 AM Lissa Pham MA Not being able to stop or control worrying 2 12/24/2024 11:17 AM Lissa Pham MA Worrying too much about different things 2 12/24/2024 11:17 AM Lissa Pham MA Trouble relaxing 1 12/24/2024 11:17 AM Adela Pham MA Being so restless that it is hard to sit still 0 12/24/2024 11:17 AM Lissa Pham MA Becoming easily annoyed or irritable 2 12/24/2024 11:17 AM Lissa Pham MA Feeling afraid as if somethi ng awful might happen 1 12/24/2024 11:17 AM Lissa Pham MA KEELY-7 Total Score 9 12/24/2024 11:17 AM Adela Pham MA documented as of this encounter Plan of Treatment Not on file documented as of this encounter Visit Diagnoses Not on filedocumented in this encounter Additional Health Concerns Assessment Noted Time PHQ-9 Depression Total Score: 6 12/25/19 11:17 AM EDT documented as of this encounter Care Teams Ortho Assistant Relationship Specialty Start Date End Date Sylvia Sheriff MD [address] [place] [address] PCP - General Family Medicine 01/26/22 Yasmeen Tomas Community Health Worker 08/12/23 Justus Rainey Career Resource SpecialistPathology Transcriptionist 01/08/24 documented as of this encounter
--- OUTSIDE RECORDS SUMMARY | 2024-12-24 14:50 | XMS_ITS | Encounter Summary ---
Author Organization [employer] Address [address] [facility] 7t [place] [address] Care Team Providers Care Printer'S Assistant Name Role Phone Sylvia Sheriff MD Primary Care Provider [phone] Yasmeen Tomas Unavailable Reason for Visit * Reason Comments Med Refill Encounter Details Date Type Department Care Team ([facility] st Contact Info) Description 12/08/2024 Refill [facility] [address] [place], [place] [phone] Sylvia Sheriff MD [address] [place], [place] [phone] Fibromyalgia Social History Tobacco Use Types Packs/Day Years Used Date Smoking Tobacco: Every Day Cigarettes Passive Smoke Exposure: Current Smokeless Tobacco: Current Alcohol Use Standard Drinks/Week Comments Yes 0 (1 standard drink = 0.6 oz pur e alcohol) Sometimes Depression Answer Date Recorded Patient Health Questionnaire-9 Score 14 10/29/2023 Patient Health Questionnaire-9 Score 14 10/29/2023 Last PHQ-9: Questionnaire Data Not on file 0 10/29/2023 Housing Stability Answer Date Recorded What is your housing situation today? I have housing today, but I am worried about losing housing in the future 08/12/[address] you li ve. Do you have problems with any of the following? None of the above 08/12/2023 Food Insecurity Answer Date Recorded Within the past 12 months, y ou worried that your food would run out before you got money to buy more: Often true 08/12/2023 Within the past 12 months,th e food you bought just didn't last and you didn't have enough money to get more: Often true Transportation Answer Date Recorded In the past 12 months, has l ack of transportation kept you from medical appts, meetings, work or from getting things needed for daily living? Yes, it has kept me from medical appointments or getting medications. 08/12/2023 Utilities Answer Date Recorded In the past 12 months, has t he electric, gas, oil or water company threatened to shut off services in your home? No 08/12/2023 Depression Answer Date Recorded Patient Health Questionnaire-2 Score 5 10/29/2023 Internet Access Answer Date Recorded Internet Access Q1 Yes 10/25/2023 Internet Access Q2 Not on file 10/25/2023 Comments Unknown Sex and Gender Information Value Date Recorded Sex Assigned at Female 12/25/2021 10:39 AM EDT Legal Sex Female 10:39 AM EDT Gender Identity Female 12/25/2021 10:39 AM EDT Sexual Orientation Straight 12/25/2021 10 :39 AM EDT documented as of this encounter Plan of Treatment Not on file documented as of this encounter Visit Diagnoses Diagnosis Fibromyalgia Unspecified myalgia and myositis documented in this encounter Additional Health Concerns Assessment Noted Time PHQ-9 Depression Total Score: 14 024 11:14 AM EDT documented as of this encounter Care Teams Printer'S Assistant Relationship Specialty Start Date End Date Sylvia Sheriff MD [address] [place] [phone] PCP - General Family Medicine 01/26/22 Yasmeen Tomas Community Health Worker 08/12/23 Justus Rainey Advanced Solutions ArchitectRepossession Agent 01/08/24 documented as of this encounter
--- OUTSIDE RECORDS SUMMARY | 2024-12-24 14:50 | XMS_ITS | Encounter Summary ---
Author Organization [employer] Address [address] [facility] 7t [place] [address] Care Team Providers Care Log Inspector Name Role Phone Sylvia Sheriff MD Primary Care Provider Yasmeen Tomas Unavailable Reason for Visit * Reason Onset Date Comments chart prep 12/23/2024 Encounter Details Date Type Department Care Team ([facility] st Contact Info) Description 12/23/2024 Telephone [facility] [address] [place], [place] [phone] Sylvia Sheriff MD [address] [place] [address] chart prep Social History Tobacco Use Types Packs/Day Years [...] AM EDT documented as of this encounter Miscellaneous Notes * Telephone Encounter - Adela Tomas MA - 12/23/2024 11:59 AM EDT ..Chart Prep Labs: not done Images: not done Vaccines due: Covid Due, Hep B Due, and Flu Due Referrals: Gastroenterology appointment pending Screenings: Mammogram and Foot Exam Overdue care gaps: A1C, Glucose, Sbirt, SDOH, PHQ9, GAD7, and Oral Health documented in this encounter Plan of Treatment Not on file documented as of this encounter Visit Diagnoses Not on filedocumented in this encounter Additional Health Concerns Assessment Noted Time PHQ-9 Depression Total Score: 14 024 11:14 AM EDT documented as of this encounter Care Teams Log Inspector Relationship Specialty Start Date End Date Sylvia Sheriff MD [address] [place] [address] PCP - General Family Medicine 01/26/22 Yasmeen Tomas Community Health Worker 08/12/23 Justus Rainey Resident Athletic TrainerInstructor Watch Assembly 01/08/24 documented as of this encounter
--- OUTSIDE RECORDS SUMMARY | 2024-12-24 14:50 | XMS_ITS | Encounter Summary ---
Author Organization [employer] Address [address] [facility] 7t [place] [address] Care Team Providers Care Licensed Insurance Sales Agent Name Role Phone Sylvia Sheriff MD Primary Care Provider [phone] Yasmeen Tomas Unavailable Reason for Visit * Reason Onset Date Comments Error (VOID this visit) 12/23/2024 Encounter Details Date Type Department Care Team ([facility] Contact Info) Description 12/23/2024 Telephone [facility] MED[facility] [address] [place], [place] [phone] Sylvia Sheriff MD [address] [place], [place] [phone] Error (VOID this visit) Social History Tobacco Use Types Packs/Day Years [...] documented as of this encounter Care Teams Licensed Insurance Sales Agent Relationship Specialty Start Date End Date Sylvia Sheriff MD [address] [place] [address] PCP - General Family Medicine 01/26/22 Yasmeen Tomas Community Health Worker 08/12/23 Justus Rainey Manager TransitionAssessor 01/08/24 documented as of this encounter
--- OUTSIDE RECORDS SUMMARY | 2024-12-24 14:50 | XMS_ITS | Encounter Summary ---
Author Organization [facility] Address [address] [place] [address] Care Team Providers Care Timber Watchman Name Role Phone Unavailable Primary Care Provider Unavailabl e Reason for Visit * Reason Comments Medication Refill Encounter Details Date Type Department Care Team (Late st Contact Info) Description 07/18/2022 Refill [facility] [address] [place] [address] Hemanth Barnhart MD [address] [place] [address] Medication Refill Social History Tobacco [...]
--- OUTSIDE RECORDS SUMMARY | 2024-12-24 14:50 | XMS_ITS | Encounter Summary ---
Author Organization [facility] and [facility] Address [address] [place] [phone] Care Team Providers Care Wash Tub Machine Operator Name Role Phone Hemanth Barnhart MD Primary Care Provider + Encounter Details Date Type Department Care Team (Late st Contact Info) Description 06/18/2010 Abstract [facility] [address], [address] [place], [place] [phone] Lynn Lima MD [address] [place] [address] Social History Tobacco Use Types Packs/Day Years [...] Procedure Name Priority Date/Time Associated Diagnosis Comments NPSG W/CPAP TITRATION Routine 06/18/2010 12:52 PM EDT documented in this encounter Results * NPSG w/CPAP Titration (06/18/2010 12:52 PM EDT) Impressions Tamia Arriaga - 06/18/2010 12:52 PM EDT PATIENT NAME: Jen Padgett DATE OF SERVICE: 06/18/2010 DATE OF INTERPRETATION: 06/28/2010 DATE OF : 1970 REFERRING PHYSICIAN: Carleen Harden M.D. POLYSOMNOGRAPHY CPAP TITRATION PROCEDURE: The patient was monitored for assessment of sleep and respiration using a [employer]ler polysomnography data acquisition system. This system was [...] hypopneas, and RERAs. INDICATIONS: The patient is 39 years old weighing 315 lbs. and 5'6 tall for a BMI of 50.8 with a neck circumference of 45 cm who was diagnosed with mild obstructive sleep apnea with an Apnea-Hypopnea Index of 9/hr and BDI of 15hr, but the patient dreamt and the Apnea-Hypopnea Index was 35/hr with desaturations to 56%. She comes back for a CPAP titration study. FINDINGS: A polysomnography was performed on the night of 06/18/2010 from 10:38:08 p.m. until 6:16:09 a.m. The entire study was done on CPAP ranging between 5 and 18 cm H2O. Sleep ? Jen Padgett, Page 2 latency is reported within 36.5 minutes. The Time-in-Bed, Sleep-Period Time, Total-Sleep Time, and Sleep Efficiency (TST/TIB) were 477.0 minutes, 420.5 minutes, 386.5 minutes, and 84.4%, respectively. REM latency was 79.5 minutes. The sleep latency and Stage N2 latency were 36.5 and 5.5 minutes, respectively. The sleep architecture, on CPAP, was as follows (as a percentage of Total-Sleep Time): Minutes % TST Wake Time after Sleep Onset: 34 Stage N1: 26 6 Stage N2: 181 46 Stage N3: 88 22 REM: 90 23 Sleep efficiency TST/TIB: 84.4% There were a total of 196 arousals with an Arousal Index of 25.7/hr. Of those, 85 were respiratory arousals. There were no periodic leg movements. The patient slept mostly on her side but also in the supine position. In addition, there were a total of 103 respiratory events as follows: Number Mean Duration (sec) Obstructive Apneas: 15 16.5 Central Apneas: 0 0.0 Mixed Apneas: 0 0.0 Hypopneas: 12 31.7 RERAs: 76 17.9 The Apnea-Hypopnea Index was 4.2/hr with a Breathing Disturbance Index of 16.0/hr. With patient awake and breathing ambient air, the average arterial oxygen saturation was 98% and during sleep the average arterial oxygen saturation was 97% with a claudette arterial oxygen saturation of 86%. The electrocardiographic monitoring showed sinus rhythm with an average heart rate asleep of 87/bpm. Review of the titration revealed that optimal CPAP was reached at 10 cm H2O at which level the patient achieved REM sleep in the supine position and slept for about 29 minutes with an Apnea-Hypopnea Index of 2/hr, BDI of 6/hr, and an average oxygen saturation of 97%. On the post sleep questionnaire, the patient stated that in response to CPAP, her sleep quality was fair , but her likelihood of using CPAP is none . IMPRESSION: Optimal CPAP was reached at 10 cm H2O with improvement in sleep disordered breathing and good oxygenation. At that level of pressure the patient achieved REM sleep in the supine position. At higher levels of pressure there were significant leaks. RECOMMENDATIONS: The patient indicated that her likelihood of using CPAP is none . She would benefit from mask fitting and CPAP acclimation before being started on CPAP at 10 cm H2O using a medium Comfort Gel nasal mask with a chinstrap. Close clinical follow-up is ? Jen Padgett, Page 3 recommended. She should also be referred to ENT to be evaluated for possible correctable upper airway anatomical abnormality. However, considering her underlying hypertension, she would benefit most from CPAP therapy. Lynn Lima M.D., Ph.D., FAASM Diplomate, [place] [employer] Medicine [place] A: Obstructive Sleep Apnea FR:ab Dictated 06/28/2010/Transcribed 06/29/2010 ? June 29, 2010 [place] [address] RE: Jen Padgett : [address] Harden: I thank you for your kind referral. Enclosed please find the sleep study report on your patient, which shows that she improved with CPAP at 10 cm H2O with good oxygenation and elimination of sleep disordered breathing. She achieved REM sleep in the supine position at that level of pressure. Unfortunately, she indicated that her likelihood of using CPAP is none . My recommendation is enclosed. Please do not hesitate to contact me should you wish to discuss the results of this study further. I would like to thank you for allowing me to participate in the care of this fine patient. Sincerely yours, Lynn Lima M.D., Ph.D., FAASM Diplomate, [place] Board of Sleep Medicine FR:ab ? [facility] Provider SLEEP CENTER ORDERABLES Audrey l Result documented in this encounter Visit Diagnoses Not on filedocumented in this encounter Additional Health Concerns Infection Onset Date Last Indicated Resolved Time R/O COVID-07/12/2019 07/13/2019 07/14/2019 10:2 7 PM EDT COVID-07/13/2019 07/13/2019 08/12/2019 7:18 PM EDT R/O COVID-19 10/25/2020 10/25/2020 11/04/2020 7:18 PM EDT documented as of this encounter Care Teams Wash Tub Machine Operator Relationship Specialty Start Date End Date Hemanth Barnhart MD [address] [place] [address] PCP - General Internal Medicine 08/20/15 11/01/21 documented as of this encounter
--- OUTSIDE RECORDS SUMMARY | 2024-12-24 14:50 | XMS_ITS | Encounter Summary ---
Author Organization [employer] Address [address] [facility] 7t [place] [address] Care Team Providers Care Production Coordinator Name Role Phone Sylvia Sheriff MD Primary Care Provider [phone] Yasmeen Tomas Unavailable Reason for Visit * Reason Comments Med Refill Encounter Details Date Type Department Care Team ([facility] st Contact Info) Description 12/09/2024 Refill [facility] MED[facility]INE [address] [place], [place] [phone] Sylvia Sheriff MD [address] [place], [place] [phone] Fibromyalgia Social History Tobacco Use Types Packs/Day [...] documented as of this encounter Care Teams Production Coordinator Relationship Specialty Start Date End Date Sylvia Sheriff MD [address] [place] [address] PCP - General Family Medicine 01/26/22 Yasmeen Tomas Community Health Worker 08/12/23 Justus Rainey Fish Stringer AssemblerMen'S Custom Hair Piece Consultant 01/08/24 documented as of this encounter
--- OUTSIDE RECORDS SUMMARY | 2024-12-24 14:50 | XMS_ITS | Encounter Summary ---
Author Organization [facility] Address [address] [place] [address] Care Team Providers Care Inweaver Name Role Phone Unavailable Primary Care Provider Unavailabl e Reason for Visit * Reason Comments Medication Refill Encounter Details Date Type Department Care Team (Late st Contact Info) Description 02/11/2022 Refill [facility] MEDICINE [address] [place] [address] Hemanth Barnhart MD [address] [place] [address] Medication Refill Social History Tobacco [...]
--- OUTSIDE RECORDS SUMMARY | 2024-12-24 14:50 | XMS_ITS | Encounter Summary ---
Author Organization [employer] Address [address] [place] [address] 7t [place] [address] Care Team Providers Care Raiser Helper Name Role Phone Sylvia Sheriff MD Primary Care Provider [phone] Yasmeen Tomas Unavailable Serenity Bronson RN Unavailable [phone] Reason for Visit * Reason Comments Med Refill Encounter Details Date Type Department Care Team ([facility] st Contact Info) Description 08/14/2024 Refill [facility] MEDICINE [address] [place], [place] [phone] Sylvia Sheriff MD [address] [place], [place] [phone] Gastroesophageal reflux disease, unspecified whether esophagitis present Social History Tobacco Use Types Packs/Day Years [...] as of this encounter Visit Diagnoses Diagnosis Gastroesophageal reflux disease, unspecified whether esophagitis present documented in this encounter Additional Health Concerns Assessment Noted Time PHQ-9 Depression Total Score: 14 024 11:14 AM EDT documented as of this encounter Care Teams Raiser Helper Relationship Specialty Start Date End Date Sylvia Sheriff MD [address] [place] [address] PCP - General Family Medicine 01/26/22 Yasmeen Tomas Community Health Worker 08/12/23 Serenity Bronson, RN Registered Nurse Internal Medicine 10/12/24 10/13/24 Justus Rainey Supervisor RefiningAirline Ticket Agent 01/08/24 documented as of this encounter
--- OUTSIDE RECORDS SUMMARY | 2024-12-24 14:50 | XMS_ITS | Encounter Summary ---
Author Organization [employer] Address [address] [facility] 7t [place] [address] Care Team Providers Care Pick Up Driver Name Role Phone Sylvia Sheriff MD Primary Care Provider [phone] Yasmeen Tomas Unavailable Serenity Bronson RN Unavailable [phone] Reason for Visit * Reason Onset Date Comments Referral 11/25/2023 FYI 11/25/2023 Encounter Details Date Type Department Care Team (Late st Contact Info) Description 11/25/2023 Telephone [facility] MEDICINE [address] [place], [place] [phone] Sylvia Sheriff MD [address] [place], [place] [phone] Referral; I Social History Tobacco Use Types Packs/Day Years [...] encounter Miscellaneous Notes * Telephone Encounter - Marty Desai - 11/25/2023 8:05 AM EDT Tc from patient calling to report has been admitted since 11/22 at [facility] for cough , shortness of breath and migraine patient is still admitted and is unsure of day of discharge also is advised to get a referral for Neurology and would like to have the PCP return call documented in this encounter Plan of Treatment Not on file documented as of this encounter Visit Diagnoses Not on filedocumented in this encounter Additional Health Concerns Assessment Noted Time PHQ-9 Depression Total Score: 14 024 11:14 AM EDT documented as of this encounter Care Teams Pick Up Driver Relationship Specialty Start Date End Date Sylvia Sheriff MD [address] [place] [address] PCP - General Family Medicine 01/26/22 Yasmeen Tomas Community Health Worker 08/12/23 Serenity Bronson, RN Registered Nurse Internal Medicine 10/12/24 10/13/24 Justus Rainey Fur IronerDigital Retoucher 01/08/24 documented as of this encounter
--- OUTSIDE RECORDS SUMMARY | 2024-12-24 14:50 | XMS_ITS | Encounter Summary ---
Author Organization [employer] Address [address] [place] [address] 7 [place] [address] Care Team Providers Care Diet Assistant Name Role Phone Sylvia Sheriff MD Primary Care Provider [phone] Yasmeen Tomas Unavailable Serenity Bronson RN Unavailable [phone] Reason for Referral * Consultation (Urgent) - Closed Specialty Diagnoses / Procedures Referred By Contac t Referred To Contact Neurology Diagnoses Chronic intractable headache, unspecified headache type Sylvia Sheriff MD [address] [place], [place] Phone: tel: fax: [facility]-Neurology [address] [place] [phone] Phone: tel: fax: Referral ID Status Reason Start Date Expiration Date V isits Requested Visits Authorized [id number] Closed Specialty Services Required 11/27/2023 11/26/2024 1 1 Encounter Details Date Type Department Care Team (Late st Contact Info) Description 11/27/2023 Orders Only [facility] MEDICINE [address] [place] [address] Sylvia Sheriff MD [address] [place], [place] Chronic intractable headache, unspecified headache type (Primary Dx) Social History Tobacco Use Types Packs/Day Years [...] as of this encounter Plan of Treatment Scheduled Referrals Name Type Priority Associated Diagnoses Orde r Schedule Referral to Neurology Outpatient Referral Urgent Chronic intractable headache, unspecified headache type Expected: 11/27/2023 (Approximate), Expires: 11/26/2024 documented as of this encounter Visit Diagnoses Diagnosis Chronic intractable headache, unspecified headache type- Primary documented in this encounter Additional Health Concerns Assessment Noted Time PHQ-9 Depression Total Score: 14 024 11:14 AM EDT documented as of this encounter Care Teams Diet Assistant Relationship Specialty Start Date End Date Sylvia Sheriff MD [address] [place] [address] PCP - General Family Medicine 01/26/22 Yasmeen Tomas Community Health Worker 08/12/23 Serenity Bronson, RN Registered Nurse Internal Medicine 10/12/24 10/13/24 Justus Rainey Clothespin Machine OperatorRadio Reporter 01/08/24 documented as of this encounter
--- OUTSIDE RECORDS SUMMARY | 2024-12-24 14:50 | XMS_ITS | Encounter Summary ---
Author Organization [employer] Address [address] [facility] 7t [place] [address] Care Team Providers Care Lab Support Service Tech Name Role Phone Sylvia Sheriff MD Primary Care Provider [phone] Yasmeen Tomas Unavailable Reason for Visit * Reason Comments Med Refill Encounter Details Date Type Department Care Team ([facility] st Contact Info) Description 12/11/[address] [facility] MEDICINE [address] [place], [place] [phone] Sylvia Sheriff MD [address] [place], [place] [phone] Fibromyalgia Social History Tobacco Use Types Packs/Day [...] documented as of this encounter Care Teams Lab Support Service Tech Relationship Specialty Start Date End Date Sylvia Sheriff MD [address] [place] [phone] PCP - General Family Medicine 01/26/22 Yasmeen Tomas Community Health Worker 08/12/23 Justus Rainey Wastewater Process EngineerSmasher Hand 01/08/24 documented as of this encounter
--- OUTSIDE RECORDS SUMMARY | 2024-12-24 14:50 | XMS_ITS | Clinical Summary ---
Author Organization [facility] Address [address] [facility] [address] [place] [address] Phone Care Team Providers Care Broaching Machine Repairer Name Role Phone Sylvia Sheriff MD Primary Care Provider [phone] Social History Tobacco Use Types Packs/Day Years Used Date Smoking Tobacco: Never Assessed Education Answer Date Recorded Are you interested in more education? Not on divya e 06/03/2024 Are you concerned about learning? Not on file 06/03/2024 No 06/03/2024 No 06/03/2024 Digital Access Answer Date Recorded No 06/03/2024 No 06/03/2024 Reliable internet access at home? Not on file 06/03/2024 Device with a working camera? Not on file Comments Unknown Sex and Gender Information Value Date Recorded Sex Assigned at Not on file Legal Sex Female 9:24 AM EDT Gender Identity Not on file Sexual Orientation Not on file Plan of Treatment Upcoming Encounters Date Type Department Care Team (Late st Contact Info) Description 01/04/2025 1:00 PM EST Office Visit [facility] Neurology [address] [place] [address] Alyssa Ramirez FNP [address] [facility], 2nd [place] [address] [email or web address] Health Maintenance Due Date Last Done Comments Adult Td,Tdap Booster 1970 LIPID PANEL 1970 DEPRESSION SCREENING 1982 SMOKING Hx and SMOKELESS TOB ACCO SCREENING 08/08/1983 HEPATITIS C SCREENING 1988 HIV ONE-TIME SCREENING (18-6 5 YEARS) 1988 PAP SMEAR 08/08/1991 MAMMOGRAM 2010 COLOGUARD 08/08/2015 COLONOSCOPY 08/08/2015 COLORECTAL CANCER SCREENING 08/08/2015 FIT TEST 08/08/2015 FOBT 08/08/2015 SIGMOIDOSCOPY 08/08/2015 VIRTUAL COLONOSCOPY 08/08/2015 PNEUMOCOCCAL VACCINES (50+ y ears) (1 of 1 - PCV) 2020 ZOSTER VACCINES (1 of 2) 2020 INFLUENZA VACCINE (#1) 2024 COVID-19 VACCINE (1 - 2024-2 6 season) 2024 RSV VACCINE (1 - 1-dose 75+ series) 2045 HEPATITIS A VACCINES Aged Out No long er eligible based on patient's age to complete this topic HIB VACCINES Aged Out No longer eligi ble based on patient's age to complete this topic MENINGOCOCCAL VACCINES (ACWY) Aged Out No longer eligible based on patient's age to complete this topic MENINGOCOCCAL VACCINES (B) Aged Out N o longer eligible based on patient's age to complete this topic Medical Devices Not on file Insurance [facility] [employer] [facility] [address] [place] [address] [place] [address] [place] [address] [place] [address] [employer] [facility] [employer] [facility] [employer] Care Teams Broaching Machine Repairer Relationship Specialty Start Date End Date Sylvia Sheriff MD [address] [place] [address] PCP - General Family Medicine 06/03/24 Additional Source Comments The information contained in this document represents components of the legal health record. It is not the complete legal health record.[facility]
--- OUTSIDE RECORDS SUMMARY | 2024-12-24 14:50 | XMS_ITS | Encounter Summary ---
Author Organization [employer] Address [address] [facility] 7t [place] [address] Care Team Providers Care Composition Floor Layer Name Role Phone Sylvia Sheriff MD Primary Care Provider [phone] Yasmeen Tomas Unavailable Serenity Bronson RN Unavailable [phone] Reason for Visit * Reason Onset Date Comments Med Refill 01/21/2024 Encounter Details Date Type Department Care Team (Late st Contact Info) Description 01/21/[address] [facility] MEDICINE [address] [place], [place] [phone] Sylvia Sheriff MD [address] [place], [place] [phone] Med Refill Social History Tobacco Use Types Packs/Day [...] encounter Miscellaneous Notes * Telephone Encounter - Stella Bautista - 01/22/2024 8:22 AM EST Tc from pt medication was sent to the wrong pharmacy the correct pharmacy is [facility]/pharmacy #[id number] - [place], [place] * Telephone Encounter - Rachna Bautista LPN - 01/21/2024 2:10 PM EST Medication was sent to [facility] on 10/09/23 with 3 refills. * Telephone Encounter - Jose Jacobs - 01/21/2024 1:53 PM EST TC from pt requesting medication refill. Medications needing refill: pregabalin (Lyrica) 75 MG capsule To be sent to: [facility] - [place], [place] - [address] documented in this encounter Plan of Treatment Not on file documented as of this encounter Visit Diagnoses Not on filedocumented in this encounter Additional Health Concerns Assessment Noted Time PHQ-9 Depression Total Score: 14 024 11:14 AM EDT documented as of this encounter Care Teams Composition Floor Layer Relationship Specialty Start Date End Date Sylvia Sheriff MD [address] [place] [address] PCP - General Family Medicine 01/26/22 Yasmeen Tomas Community Health Worker 08/12/23 Serenity Bronson, RN Registered Nurse Internal Medicine 10/12/24 10/13/24 Justus Rainey Solder Cream MakerPutty Mixer 01/08/24 documented as of this encounter
--- OUTSIDE RECORDS SUMMARY | 2024-12-24 14:50 | XMS_ITS | Encounter Summary ---
Author Organization [employer] Address [address] [facility] 7t [place] [address] Care Team Providers Care Particle Board Supervisor Name Role Phone Sylvia Sheriff MD Primary Care Provider [phone] Yasmeen Tomas Unavailable Serenity Bronson RN Unavailable [phone] Reason for Visit * Reason Onset Date Comments PT1 08/10/2024 Encounter Details Date Type Department Care Team (Late st Contact Info) Description 08/10/2024 Telephone [facility] MEDICINE [address] [place], [place] [phone] Sylvia Sheriff MD [address] [place], [place] [phone] PT1 Social History Tobacco Use Types Packs/Day Years [...] encounter Miscellaneous Notes * Telephone Encounter - Casie Monroy - 08/10/2024 12:59 PM EDT Patient calling requesting PT1 Home Address verified: Y/N: Yes Provider name or facility name: [address] [facility] [address] Escort needed: Y/N: No Do you have a wheelchair: Y/N: No If yes- Manual or electric: N/A Visits: (4x monthly) Patient calling requesting PT1 Home Address verified: Y/N: Yes Provider name or facility name: [address] [place], [place] - [facility] Escort needed: Y/N: No Do you have a wheelchair: Y/N: No If yes- Manual or electric: N/A Visits: (2x monthly) Patient calling requesting PT1 Home Address verified: Y/N: Yes Provider name or facility name: [facility] [place] - [address] [place] [address]. Escort needed: Y/N: No Do you have a wheelchair: Y/N: No If yes- Manual or electric: N/A Visits: (2x monthly) Patient calling requesting PT1 Home Address verified: Y/N: Yes Provider name or facility name: [address] [place] [address] Escort needed: Y/N: No Do you have a wheelchair: Y/N: No If yes- Manual or electric: N/A Visits: (2x monthly) Patient calling requesting PT1 Home Address verified: Y/N: Yes Provider name or facility name: [address] [place] [address] - [facility] Escort needed: Y/N: No Do you have a wheelchair: Y/N: No If yes- Manual or electric: N/A Visits: (2x monthly) Patient calling requesting PT1 Home Address verified: Y/N: Yes Provider name or facility name: [address] [facility] [address] [facility] Escort needed: Y/N: No Do you have a wheelchair: Y/N: No If yes- Manual or electric: N/A Visits: (2x monthly) Patient calling requesting PT1 Home Address verified: Y/N: Yes Provider name or facility name: [address] [facility] Escort needed: Y/N: No Do you have a wheelchair: Y/N: No If yes- Manual or electric: N/A Visits: (2x monthly) documented in this encounter Plan of Treatment Not on file documented as of this encounter Visit Diagnoses Not on filedocumented in this encounter Additional Health Concerns Assessment Noted Time PHQ-9 Depression Total Score: 14 024 11:14 AM EDT documented as of this encounter Care Teams Particle Board Supervisor Relationship Specialty Start Date End Date Sylvia Sheriff MD [address] [place] [address] PCP - General Family Medicine 01/26/22 Yasmeen Tomas Community Health Worker 08/12/23 Serenity Bronson, RN Registered Nurse Internal Medicine 10/12/24 10/13/24 Justus Rainey Pharmacy Sales RepresentativePipe Organ Tuner And Repairer 01/08/24 documented as of this encounter
--- OUTSIDE RECORDS SUMMARY | 2024-12-24 14:50 | XMS_ITS | Clinical Summary ---
Author Organization [address] Address [address] [place] [phone] Phone Care Team Providers Care First Grade Teacher Name Role Phone Unavailable Primary Care Provider Unavailabl e Allergies Active Allergy Reactions Criticality Noted Date Comments Aspirin Stomach Pain Low 12/16/2014 Upset stomach Medications * This document contains information received from the source organization and may not represent a complete record from that organization. albuterol sulfate 90 mcg/actuation HFA aerosol inhaler Inhale 2 puffs into the lungs every 6 (six) hours as needed for wheezing. 18 g 11 1 Active Additional Information Patient not taking.Reported on 12/20/2020 diclofenac (VOLTAREN) 1 % gelIndications: Carpal tunnel syndrome of right wrist Apply topically 4 (four) times daily. 100 g 2 1 Active Additional Information Patient not taking.Reported on 12/20/2020 ipratropium-alb uteroL (COMBIVENT RESPIMAT) 20-100 mcg/actuation mist for inhalation Inhale 1 puff into the lungs every 6 (six) hours as needed. 12 g 2 1 Active losartan (COZAAR) 100 mg tablet Take 1 tablet (100 mg total) by mouth daily. 90 tablet 1 1 Active meclizine (ANTIVERT) 25 mg tablet 1 po tid prn dizziness 90 tablet 5 1 Active blood pressure test kit-large Kit USE DIRECTED EVERY DAY 1 Active cyanocobalamin 1000 MCG tablet 1 Active ergocalciferol (ERGOCALCIFEROL ) 1,250 mcg (50,000 unit) capsule 1 Active amLODIPine (NORVASC) 5 mg tablet TAKE 1 TABLET BY MOUTH EVERY DAY 90 tablet 2 2 Active metFORMIN (GLUCOPHAGE) 500 mg Immediate Release tablet TAKE 1 TABLET BY MOUTH TWICE A DAY WITH BREAKFAST AND DINNER 180 tablet 1 2 Active ascorbic acid, vitamin C, (VITAMIN C) 500 mg tablet TAKE 1 TABLET BY MOUTH EVERY OTHER DAY WITH IRON 2 Active cholecalciferol , vitamin D3, 50 mcg (2,000 unit) tablet TAKE 1 TABLET BY MOUTH EVERY DAY 2 Active ferrous gluconate (FERGON) 324 mg (38 mg iron) tablet TAKE 1 TABLET EVERY OTHER DAY WITH VITAMIN C 2 Active polyethylene glycol (GLYCOLAX; MIRALAX) 17 gram/dose powder 2 Active pregabalin (LYRICA) 75 mg capsule TAKE 1 CAPSULE BY MOUTH 3 TIMES DAILY. 270 capsule 2 2 Active hydroCHLOROthia zide (HYDRODIURIL) 12.5 mg tablet TAKE 1 TABLET BY MOUTH EVERY DAY 90 tablet 2 Active acetaZOLAMIDE (DIAMOX) 125 mg Immediate Release tablet TAKE 1 TABLET (125 MG TOTAL) BY MOUTH EVERY MORNING. ALONG WITH 500MG FOR TOTAL DOSE 625MG 90 tablet 1 2 Active acetaZOLAMIDE (DIAMOX SEQUEL) 500 mg 12 hr extended release capsule TAKE 1 CAPSULE (500 MG TOTAL) BY MOUTH EVERY MORNING. ALONG WITH 125MG FOR TOTAL DOSE 625MG 90 capsule 3 2 Active pantoprazole (PROTONIX) 40 mg tablet TAKE 1 TABLET BY MOUTH EVERY DAY IN THE MORNING 90 tablet 1 2 Active WIXELA INHUB 250-50 mcg/dose blister powder for inhalation TAKE 1 PUFF BY MOUTH EVERY 12 HOURS IN THE MORNING AND IN THE EVENING 2 Active cyclobenzaprine (FLEXERIL) 10 mg tablet TAKE 1 TABLET BY MOUTH EVERYDAY AT BEDTIME 2 Active DULoxetine (CYMBALTA) 30 mg capsule 2 Active amLODIPine (NORVASC) 10 mg tablet 2 Active naproxen (NAPROSYN) 375 mg tablet TAKE 1 TABLET (375 MG TOTAL) BY MOUTH 3 (THREE) TIMES DAILY WITH MEALS. FOR PAIN/HEADACHE 90 tablet 5 3 Active amitriptyline (ELAVIL) 25 mg tablet TAKE 1 TABLET BY MOUTH EVERY DAY AT NIGHT 90 tablet 1 3 Active Active Problems Problem Noted Date Diagnosed Date COVID-19 virus infection 07/15/2019 Rash 06/16/2019 Blurred vision 06/16/2019 Cannabis dependence, uncomplicated (HC Code) 10/2019 Major depressive disorder, r ecurrent episode, moderate (HC Code) 06/04/2019 COPD (chronic obstructive pulmonary disease) 10/2019 Hidradenitis 10/16/2018 Tachycardia, unspecified 08/29/2018 Insomnia, unspecified 04/26/2017 Essential hypertension 01/10/2016 Diabetes mellitus, type II 07/05/2015 Cocaine dependence, uncomplicated (HC Code) 10/2015 Anemia, iron deficiency 04/15/2015 Fibromyalgia 04/15/2015 Intractable chronic migraine with status migrain osus 12/16/2014 Assessment & Plan (12/26/2014 11:16 PM EST): Persistent LUJAN after CSF pressure is normalized is a common problem in patients with IIH. This is most likely because persistently elevated ICP leads to chronic central sensitization which does not remit simply with reduction of ICP. Fortunately, aggressive multimodal Tx of chronic migraine usually reverses this condition. In general, combination therapy-- triptan + NSAID +/- dopamine-blocking antiemetics-- at the maximal tolerable doses provide the most consistent and complete relief from acute migraine attacks. Effective treatment of acute attacks is an essential element of any plan to reduce overall LUJAN burden. Migraine is a disorder of recurrent sensitization of the first trigeminal division (V1, the only branch with collaterals that synapse on intracranial vessels); as an attack progresses, second- and higher-order neurons in the central pain pathway are activated, and triptans become ineffective-- the use of triptans, in effect, is a race against the development of central sensitization during an acute attack. The more frequent and severe the degree of sensitization, the more likely the condition is to progress. Recent evidence from the AMPP ([place] Migraine Prevalence and Prevention study) confirms that when acute treatment is incompletely effective, the risk of progression to chronic migraine (>15 days a month) a year later is over three times greater. Status migraine pulse: weeklong, twice-daily triptan/NSAID/anti-emetic [e.g., naratriptan (Amerge) + metoclopramide + naproxen] Then hi-dose NSAID (naproxen 550-1100 mg or powdered diclofenac, Cambia) + nasal or SQ triptan +/- metoclopramide prn LUJAN SUDHAKAR (obstructive sleep apnea)-- not on CPAP 11/26 Overview (12/16/2014): Initial Dx 2010 (Clarence Vaughn) Assessment & Plan (12/26/2014 11:12 PM EST): I explained that SUDHAKAR, independent of obesity, is the single most powerful risk factor for migraine chronification, in addition to its other lifetime health risks; it is also highly correlated with a diagnosis of IIH. I strongly advised consultation with a sleep physician and a PSG, and I encouraged participation in a weight-loss program to reduce these associated risks. BPPV (benign paroxysmal positional vertigo)? Overview (12/16/2014): if I lie down and turn my head my eyes spin in that direction for a few seconds Assessment & Plan (12/16/2014 12:18 PM EDT): Made Rx VPT (vestibular therapy, Channing maneuvers etc.) Arthralgia 07/26/2014 Other abnormal glucose 02/24/2014 Low back pain 12/04/2013 Mild intermittent asthma without complication Overview (11/08/2015): IMO 2016 R2.1 update change HTN in , chronic 10/30/2013 BMI 50.0-59.9, adult (HC Code) 10/30/2013 Assessment & Plan (12/16/2014 12:08 PM EDT): I explained that obesity, independent of SUDHAKAR, is a significant risk factor for migraine chronification, in addition to its other lifetime health risks. I encouraged participation in a weight-loss program to reduce these risks. She was very interested in the Bariatrics Program option. Irregular menstrual cycle 10/22/2013 Myopia 09/24/2013 Cigarette smoker 08/20/2013 Acid reflux disease 04/29/2013 Female infertility 04/29/2013 Pseudotumor cerebri 03/03/2013 Encounter for screening 03/03/2013 Resolved Problems Problem Noted Date Diagnosed Date Resolved Date Abscess of back 07/02/2018 12/15/2019 Cellulitis of back except buttock 08/21/2015 06/04/2019 Immunizations Immunization Administration Dates Next Due COVID-19, MODERNA 12Y+, 0.5 mL 07/26/2020,2020 Influenza, split virus, trivalent, Preservative Free 04/15/2015 Tdap 07/02/2011 Family History Medical History Relation Name Comments Diabetes Maternal Grandmother Hypertension Maternal Grandmother Glaucoma Mother Hypertension Mother Relation Name Status Comments Maternal Grandmother Alive Mother Alive Social History Tobacco Use Types Packs/Day Years [...] Orientation Straight 03/08/2020 2: 01 PM EST Last Filed Vital Signs Vital Sign Reading Time Taken Comments Blood Pressure 124/90 10/25/2020 11:16 AM EDT Pulse 99 10/25/2020 11:16 AM EDT Temperature 36.3 C (97.3 F) 10/25/2020 11:16 AM EDT Respiratory Rate 18 10/25/2020 2:45 AM EDT Oxygen Saturation 96% 10/25/2020 11: 16 AM EDT Inhaled Oxygen Concentration - - Weight 126.5 kg (278 lb 12.4 oz) 2020 10:35 PM EDT Height 170.2 cm (5' 7 ) 10/16/2018 7:59 AM EDT Body Mass Index 43.66 10/16/2018 7:59 AM EDT Plan of Treatment Health Maintenance Due Date Last Done Comments Hepatitis C screening 1988 Cervical cancer screening 08/08/1991 Lipid disorder screening 2010 Colon cancer screening,FIT/FOBT,Annual 08/08/2015 Lung Cancer Screening 2020 08/21/2015 Shingles vaccine (Shingrix) (1 of 2 - Shingrix (RZV) 2 Dose Standard Series) 2020 Breast cancer screening 09/09/2020 09/10/19 19, 04/30/2013, 08/09/2011 Diabetes screening 10/26/2023 10/25/2020, 0 2018, 06/12/2018, Additional history exists Influenza vaccine 09/25/2024 04/15/2015 Covid-19 vaccine series ( season) 2024 01/31/2023, 03/08/2022, 09/26/2021, Additional history exists Tetanus adult (Td q 10,TDAP once) 12/01/2031 11/30/2021, 07/02/2011 RSV Immunization (1 - 1-dose 75+ series) 2045 HIV screening Completed 10/30/2013 Pneumococcal Vaccine (2 - 49 years) Discontinued 01/31/2023 Pneumococcal Vaccine (50+ years) Completed 01/31/2023 Colon cancer screening, Colonoscopy Discontinued Meningococcal B Vaccine Aged Out No l onger eligible based on patient's age to complete this topic Meningococcal Vaccine Aged Out No kem david eligible based on patient's age to complete this topic Procedures Procedure Name Priority Date/Time Associated Diagnosis Comments BASIC METABOLIC PANEL STAT 10/25/2020 1:15 AM EDT MAMMO SCREENING Routine 09/09/2018 9:25 AM EDT Screening breast examination CT CHEST W IV CONTRAST Within 1 hour (STAT) 08/21/2015 7:07 PM EDT HIV-1/HIV-2 ANTIBODY/ANTIGEN SCREEN (YH) Urgent 10/30/2013 12:33 PM EDT from Last 3 Months or Most Recently Relevant to Health Maintenance Results * (ABNORMAL) Basic metabolic panel (10/25/2020 1:15 AM EDT) Sodium 140 136 - 144 mmol/L 10/25/2020 1:41 AM T [facility] Potassium 3.2(L) 3.3 - 5.1 mmol/L 10/25/2020 1:41 AM EDT [facility] Chloride 105 98 - 107 mmol/L 10/25/2020 1:41 AM EDT [facility] CO2 24 20 - 30 mmol/L 10/25/2020 1:41 AM EDT [facility] Anion Gap 11 7 - 17 [facility] Glucose 113(H) 70 - 100 mg/dL 10/25/2020 1:41 AM EDT [facility] BUN 11 6 - 20 mg/dL 10/25/2020 1:41 AM EDT [facility] Creatinine 0.70 0.40 - 1.30 mg/dL 10/25/2020 1:41 AM EDT [facility] Calcium 10.0 8.8 - 10.2 mg/dL 10/25[facility]2020 [facility] BUN/Creatinine Ratio 15.7 8.0 - 23.0 10/25/2020 1:41 AM EDT [facility] eGFR (Afr Amer) >60 >60 mL/min/1.7 3m2 10/25/2020 1:41 AM EDT [facility] Comment: Values under 60mL/min/1.73m2 may indicate CKD if noted for more than 3 months. eGFR is only valid if creatinine is at steady state. eGFR (NON -Juliana n) >60 >60 mL/min/1.7 3m2 10/25/2020 1:41 AM T [facility] Comment: Values under 60mL/min/1.73m2 may indicate CKD if noted for more than 3 months. eGFR is only valid if creatinine is at steady state. Blood Venipuncture / Unknown 10/25/2020 1:15 AM EDT 10/25/2020 1:17 AM EDT us Jose Rafael [facility] LAB BLOOD ORDERABLES Final Re sult [facility] [address] [place] [id number], [facility] [[email or web address]] [phone] * Mammo Screening (09/09/2018 9:25 AM EDT) Anatomical Region Laterality Modality Breast Bilateral Mammography 09/09/2018 3:56 PM EDT Narrative 09/10/2018 1:13 PM EDT #[id number] - MAMMO SCREENIN09/09/2018 Current study was also evaluated with a Computer Aided Detection (CAD) system. Comparison is made to exams dated: 04/30/2013 mammogram and 08/09/2011 mammogram - [facility]. The tissue of both breasts is predominantly fatty. No significant masses, calcifications, or other findings are seen in either breast. There has been no significant interval change. IMPRESSION: NEGATIVE - BI-RADS 1 There is no mammographic evidence of malignancy. We recommend mammogram screening to start no earlier than age 40 and no later than age 50 for women at average risk of breast cancer and continue through at least age 74. Screening mammography should occur at least once every 2 years and as often as once a year. Women at higher than average risk may require different screening recommendations. It is important to talk with a health care provider about level of risk, when to start and stop screening, and how often to screen. This discussion should take into consideration personal preferences, benefits and harms of screening, overall health status, and life expectancy. The patient was informed by letter of the results. Jazmyne méndez/jannette:09/10/2018 13:13:58 Director Sales And Trade Marketing(s): Carine Dudley, [facility] letter sent: Normal Screening Mammogram BI-RADS: 1 Negative Procedure Note Jazmyne Ruiz MD - 09/10/2018 #[id number] - MAMMO SCREENIN09/09/2018 Current study was also evaluated with a Computer Aided Detection (CAD) system. Comparison is made to exams dated: 04/30/2013 mammogram and 08/09/2011 mammogram - [facility]. The tissue of both breasts is predominantly fatty. No significant masses, calcifications, or other findings are seen in either breast. There has been no significant interval change. IMPRESSION: NEGATIVE - BI-RADS 1 There is no mammographic evidence of malignancy. We recommend mammogram screening to start no earlier than age 40 and no later than age 50 for women at average risk of breast cancer and continue through at least age 74. Screening mammography should occur at least once every 2 years and as often as once a year. Women at higher than average risk may require different screening recommendations. It is important to talk with a health care provider about level of risk, when to start and stop screening, and how often to screen. This discussion should take into consideration personal preferences, benefits and harms of screening, overall health status, and life expectancy. The patient was informed by letter of the results. Jazmyne méndez/penrad:09/10/2018 13:13:58 Director Sales And Trade Marketing(s): Carine Dudley [facility] letter sent: Normal Screening Mammogram BI-RADS: 1 Negative us Hemanth Barnhart MD IMG MAMMOGRAPHY ORDERABL ES Final Result * CT Chest w IV Contrast (08/21/2015 7:07 PM EDT) Anatomical Region Laterality Modality Chest Computed Tomogra phy 08/21/2015 7:26 PM EDT Impressions 08/21/2015 7:42 PM EDT IMPRESSION: Mild asymmetric dermal thickening in the posterior left parasagittal region at approximately T6-T7, corresponding to the region of concern. No large abscess or extension to the deep tissues identified. Reported And Signed By: Kevin Olivier MD Narrative 08/21/2015 7:[address] Chest With Intravenous Contrast. Date: 08/21/2015 7:07 PM History/Indication: Febrile, with drainaing abscess over skin on T6. Technique: A volumetric CT acquisition of the chest was obtained from the thoracic inlet to the upper abdomen, following the administration of intravenous contrast. Coronal and sagittal reconstructed images are provided. Technical limitations: None Comparison: No prior relevant studies FINDINGS Lungs/Airways/Pleura : Linear, slightly nodular opacity is noted at the left lung base. Nonspecific patchy groundglass changes are seen bilaterally, may represent underlying small airways disease. Mediastinum, Lymph nodes: No significant findings. Heart and Vessels: No significant findings. Upper Abdomen: Limited evaluation of the upper abdomen shows no significant finding. Osseous structures and Soft Tissues: Asymmetric dermal thickening with stranding is noted in the posterior left parasagittal soft tissues at approximately T6-T7, measuring approximately 2.0cm maximally. No extension to the deep tissues is identified. Procedure Note Kevin Olivier MD - 08/21/2015 CT Chest With Intravenous Contrast. Date: 08/21/2015 7:07 PM History/Indication: Febrile, with drainaing abscess over skin on T6. Technique: A volumetric CT acquisition of the chest was obtained from thethoracic inlet to the upper abdomen, following the administration ofintravenous contrast. Coronal and sagittal reconstructed images areprovided. Technical limitations: None Comparison: No prior relevant studies FINDINGS Lungs/Airways/Pleura : Linear, slightly nodular opacity is noted at theleft lung base. Nonspecific patchy groundglass changes are seenbilaterally, may represent underlying small airways disease. Mediastinum, Lymph nodes: No significant findings. Heart and Vessels: No significant findings. Upper Abdomen: Limited evaluation of the upper abdomen shows nosignificant finding. Osseous structures and Soft Tissues: Asymmetric dermal thickening withstranding is noted in the posterior left parasagittal soft tissues atapproximately T6-T7, measuring approximately 2.0cm maximally. No extensionto the deep tissues is identified. IMPRESSION: Mild asymmetric dermal thickening in the posterior left parasagittalregion at approximately T6-T7, corresponding to the region of concern. Nolarge abscess or extension to the deep tissues identified. Reported And Signed By: Kevin Olivier MD Syeda Morris MD [facility] CT ORDERABLES Final Result * HIV-1/HIV-2 antibody/antigen screen () (10/30/2013 12:33 PM EDT) Pathologist [facility] HIV 1 and 2 Antibody/HIV-1 Antigen Screen NEGATIVE Negative [facility] Comment: Interpretation: This specimen is HIV antibody negative. A negative test does not exclude the possibility of infection with HIV. Negative results may be seen in early infection, advanced AIDS and agammaglobulinemic patients. If suspicion is high, submit a sample for HIV nucleic acid testing. HIV-1 Antibody cancelled Negative [facility] HIV-2 Antibody cancelled Negative [facility] HIV 1 and 2 Ab Interpretation cancelled Negative [facility] Blood specimen (specimen) 10/30/2013 12:33 PM EDT Narrative [facility] - 10/30/2013 7:21 PM EDT [facility] requires that the Laboratory document the patient informed information prior to performing HIV testing. Patient informed:->Patient informed that HIV test recommended and does not decline. Jessica [facility] LAB BLOOD ORDERABLES Final Res ult Performing Organization Address City/State/[facility] Co de Phone Number [facility] [address] [place] [phone] from Last 3 Months or Most Recently Relevant to Health Maintenance Insurance [facility] [address] [place] [address] [address] [facility] [address] [place] [address] NA Advance Directives * Full Interventions (Latest Code Status on File) Date Activated Date Inactivated Comments 08/21/2015 10:09 PM 08/23/2015 5:33 PM Question Answer Comments With Whom was the Code Status Discussed? Patient * Full Interventions Date Activated Date Inactivated Comments 11/24/2013 4:23 PM 11/25/2013 2:37 PM Question Answer Comments With Whom was the Code Status Discussed? Patient
--- OUTSIDE RECORDS SUMMARY | 2024-12-24 14:50 | XMS_ITS | Encounter Summary ---
Author Organization [employer] Address [address] [facility] [address] [place] [address] Care Team Providers Care Nurses' Association Counselor Name Role Phone Sylvia Sheriff MD Primary Care Provider [phone] Yasmeen Tomas Unavailable Reason for Visit * Reason Comments Med Refill Encounter Details Date Type Department Care Team ([facility] st Contact Info) Description 12/19/2024 Refill [facility] MEDICINE [address] [place], [place] [phone] Sylvia Sheriff MD [address] [place], [place] [phone] Social History Tobacco Use Types Packs/Day Years [...] documented as of this encounter Care Teams Nurses' Association Counselor Relationship Specialty Start Date End Date Sylvia Sheriff MD [address] [place] [address] PCP - General Family Medicine 01/26/22 Yasmeen Tomas Community Health Worker 08/12/23 Justus Rainey Business ProfessorResearch Greenhouse Supervisor 01/08/24 documented as of this encounter
--- OUTSIDE RECORDS SUMMARY | 2024-12-24 14:50 | XMS_ITS | Encounter Summary ---
Author Organization [facility] Address [address] [place] [address] Care Team Providers Care Stained Glass Joiner Name Role Phone Unavailable Primary Care Provider Unavailabl e Reason for Visit * Reason Comments Medication Refill Encounter Details Date Type Department Care Team (Late st Contact Info) Description 01/15/2023 Refill [facility] INTERNAL MEDICINE [address] [place] [address] Hemanth Barnhart MD [address] [place] [address] Medication Refill Social History Tobacco [...]
--- OUTSIDE RECORDS SUMMARY | 2024-12-24 14:50 | XMS_ITS | Encounter Summary ---
Author Organization [employer] Address [address] [facility] [address] [place] [address] Care Team Providers Care Sports Psychologist Name Role Phone Sylvia Sheriff MD Primary Care Provider [phone] Yasmeen Tomas Unavailable Encounter Details Date Type Department Care Team ([facility] st Contact Info) Description 12/11/2024 Orders Only [facility] MEDICINE [address] [place], [place] [phone] Sylvia Sheriff MD [address] [place], [place] [phone] Fibromyalgia Social History Tobacco Use Types Packs/Day [...] documented as of this encounter Care Teams Sports Psychologist Relationship Specialty Start Date End Date Sylvia Sheriff MD [address] [place] [address] PCP - General Family Medicine 01/26/22 Yasmeen Tomas Community Health Worker 08/12/23 Justus Rainey Appellate Law ClerkAlarm Mechanism Adjuster 01/08/24 documented as of this encounter
--- OUTSIDE RECORDS SUMMARY | 2024-12-24 14:50 | XMS_ITS | Encounter Summary ---
Author Organization [employer] Address [address] [place] [address] Care Team Providers Care It Service Technician Name Role Phone Sylvia Sheriff MD Primary Care Provider [phone] Yasmeen Tomas Unavailable Encounter Details Date Type Department Care Team ([facility] st Contact Info) Description 11/25/2024 Orders Only [facility] MEDICINE [address] [place], [place] [phone] Sylvia Sheriff MD [address] [place], [place] [phone] Social History Tobacco Use Types Packs/Day Years [...] documented as of this encounter Care Teams It Service Technician Relationship Specialty Start Date End Date Sylvia Sheriff MD [address] [place] [address] PCP - General Family Medicine 01/26/22 Yasmeen Tomas Community Health Worker 08/12/23 Justus Rainey Weather ForcasterDevelopment Lead 01/08/24 documented as of this encounter
--- OUTSIDE RECORDS SUMMARY | 2024-12-24 14:50 | XMS_ITS | Encounter Summary ---
Author Organization [facility] Address [address] [place] [address] Care Team Providers Care Business Information Consultant Name Role Phone Unavailable Primary Care Provider Unavailabl e Reason for Visit * Reason Comments Medication Refill Encounter Details Date Type Department Care Team (Late st Contact Info) Description 12/28/2022 Refill [facility] INTERNAL MEDICINE [address] [place] [address] Hemanth Barnhart MD [address] [place] [address] Medication Refill Social History Tobacco [...]
--- OUTSIDE RECORDS SUMMARY | 2024-12-24 14:51 | XMS_ITS | Encounter Summary ---
Author Organization [facility] Address [address] [place] [address] Care Team Providers Care Obstetrics Gyn Name Role Phone Unavailable Primary Care Provider Unavailabl e Reason for Visit * Reason Comments Medication Refill Encounter Details Date Type Department Care Team (Late st Contact Info) Description 01/27/2022 Refill [facility] INTERNAL MEDICINE [address] [place] [address] Hemanth Barnhart MD [address] [place] [address] Medication Refill Social History Tobacco [...]
--- OUTSIDE RECORDS SUMMARY | 2024-12-24 14:51 | XMS_ITS | Encounter Summary ---
Author Organization [employer] Address [address] [facility] 7t [place] [address] Care Team Providers Care Pediatric Occupational Therapist Name Role Phone Sylvia Sheriff MD Primary Care Provider [phone] Yasmeen Tomas Unavailable Radha Tomas RN Unavailable [phone] Serenity Bronson RN Unavailable [phone] Encounter Details Date Type Department Care Team (Late st Contact Info) Description 11/16/2022 Orders Only [facility] MEDICINE [address] [place] [address] Provider, MD Erica Social History Tobacco Use Types Packs/Day Years Used Date Smoking Tobacco: Every Day Cigarettes Passive Smoke Exposure: Current Smokeless Tobacco: Current Depression Answer Date Recorded Patient Health Questionnaire-9 Score 6 03/08/2022 Depression Answer Date Recorded Patient Health Questionnaire-2 Score 2 03/08/2022 Comments Unknown Sex and Gender Information Value Date Recorded Sex Assigned at Female 12/25/2021 10:39 AM EDT Legal Sex Female 10:39 AM EDT Gender Identity Female 12/25/2021 10:39 AM EDT Sexual Orientation Straight 12/25/2021 10 :39 AM EDT documented as of this encounter Plan of Treatment Not on file documented as of this encounter Procedures Procedure Name Priority Date/Time Associated Diagnosis Comments HM PAP/HPV Routine 04/20/2021 documented in this encounter Results * Hm Pap Smear (04/20/2021) Historical Provider HEALTH MAINTENANCE Final Result documented in this encounter Visit Diagnoses Not on filedocumented in this encounter Additional Health Concerns Assessment Noted Time PHQ-9 Depression Total Score: 6 03/08/19 23 9:55 AM EST documented as of this encounter Care Teams Pediatric Occupational Therapist Relationship Specialty Start Date End Date Sylvia Sheriff MD [address] [place] [address] PCP - General Family Medicine 01/26/22 Yasmeen Tomas Community Health Worker 08/12/23 Radha Tomas, EHSAN [address] [place] [address] Film Technician 10/07/23 11/10/23 Serenity Bronson, RN Registered Nurse Internal Medicine 10/12/24 10/13/24 Justus Rainey Doughnut Icer MachineFiling Writer 01/08/24 documented as of this encounter
--- OUTSIDE RECORDS SUMMARY | 2024-12-24 14:51 | XMS_ITS | Encounter Summary ---
Author Organization [employer] Address [address] [facility] 7t [place] [address] Care Team Providers Care Assisted Living Administrator Name Role Phone Sylvia Sheriff MD Primary Care Provider [phone] Yasmeen Tomas Unavailable Radha Tomas RN Unavailable [phone] Serenity Bronson RN Unavailable [phone] Reason for Visit * Reason Comments Med Refill Encounter Details Date Type Department Care Team (Late st Contact Info) Description 02/01/2023 Refill [facility] MEDICINE [address] [place], [place] [phone] Sylvia Sheriff MD [address] [place], [place] [phone] Fibromyalgia Social History Tobacco Use Types Packs/Day Years Used Date Smoking Tobacco: Every Day Cigarettes Passive Smoke Exposure: Current Smokeless Tobacco: Current Alcohol Use Standard Drinks/Week Comments Yes 0 (1 standard drink = 0.6 oz pur e alcohol) Sometimes Depression Answer Date Recorded Patient Health Questionnaire-9 Score 6 03/08/2022 Housing Stability Answer Date Recorded What is your housing situation today? I have juan pablo johnson 12/20/[address] you li ve. Do you have problems with any of the following? None of the above 12/20/2022 Food Insecurity Answer Date Recorded Within the past 12 months, y ou worried that your food would run out before you got money to buy more: Never True 12/20/2022 Within the past 12 months,th e food you bought just didn't last and you didn't have enough money to get more: Never True Transportation Answer Date Recorded In the past 12 months, has l ack of transportation kept you from medical appts, meetings, work or from getting things needed for daily living? No 12/20/2022 Utilities Answer Date Recorded In the past 12 months, has t he electric, gas, oil or water company threatened to shut off services in your home? No 12/20/2022 Depression Answer Date Recorded Patient Health Questionnaire-2 [...] documented as of this encounter Care Teams Assisted Living Administrator Relationship Specialty Start Date End Date Sylvia Sheriff MD [address] [place] [address] PCP - General Family Medicine 01/26/22 Yasmeen Tomas Community Health Worker 08/12/23 Radha Tomas, RN [address] [place] [address] Sap Technical Developer 10/07/23 11/10/23 Serenity Bronson, RN Registered Nurse Internal Medicine 10/12/24 10/13/24 Justus Rainey Yard LaborerHealth Nurse 01/08/24 documented as of this encounter
--- OUTSIDE RECORDS SUMMARY | 2024-12-24 14:51 | XMS_ITS | Encounter Summary ---
Author Organization [employer] Address [address] [facility] 7t [place] [address] Care Team Providers Care Educational Administration Teacher Name Role Phone Sylvia Sheriff MD Primary Care Provider [phone] Yasmeen Tomas Unavailable Radha Tomas RN Unavailable [phone] Serenity Bronson RN Unavailable [phone] Reason for Visit * Reason Comments Med Change Request Encounter Details Date Type Department Care Team ([facility] st Contact Info) Description 03/01/2023 Refill [facility] MEDICINE [address] [place], [place] [phone] Latoya Mccarthy ANP [address] [place], [place] [phone] Sensation of fullness in both ears Social History Tobacco Use Types Packs/Day Years Used Date Smoking Tobacco: Every Day Cigarettes Passive Smoke Exposure: Current Smokeless Tobacco: Current Alcohol Use Standard Drinks/Week Comments Yes 0 (1 standard drink = 0.6 oz pur e alcohol) Sometimes Depression Answer Date Recorded Patient Health Questionnaire-9 Score 17 02/08/2023 Patient Health Questionnaire-9 Score 17 02/08/2023 Last PHQ-9: Questionnaire Data Not on file 1 04/11/2022 Housing Stability Answer Date Recorded What is [...] Answer Date Recorded Patient Health Questionnaire-2 Score 6 02/08/2023 Comments Unknown Sex and Gender Information Value Date Recorded Sex Assigned at Female 12/25/2021 10:39 AM EDT Legal Sex Female 10:39 AM EDT Gender Identity Female 12/25/2021 10:39 AM EDT Sexual Orientation Straight 12/25/2021 10 :39 AM EDT documented as of this encounter Plan of Treatment Not on file documented as of this encounter Visit Diagnoses Diagnosis Sensation of fullness in both ears documented in this encounter Additional Health Concerns Assessment Noted Time PHQ-9 Depression Total Score: 17 023 10:03 AM EST documented as of this encounter Care Teams Educational Administration Teacher Relationship Specialty Start Date End Date Sylvia Sheriff MD [address] [place] [address] PCP - General Family Medicine 01/26/22 Yasmeen Tomas Community Health Worker 08/12/23 Radha Tomas RN [address] [place] [address] Laundry Superintendent 10/07/23 11/10/23 Serenity Bronson RN Registered Nurse Internal Medicine 10/12/24 10/13/24 Justus Rainey Mechanic ForemanCity Routeman 01/08/24 documented as of this encounter
--- OUTSIDE RECORDS SUMMARY | 2024-12-24 14:51 | XMS_ITS | Encounter Summary ---
Author Organization [facility] Address [address] [place] [address] Care Team Providers Care Security Patrol Driver Name Role Phone Hemanth Barnhart MD Primary Care Provider + Encounter Details Date Type Department Care Team (Late st Contact Info) Description 05/21/2018 Scanned Document [facility] [address] [place] [address] [place] [address] Pete Oconnell MD [address] [place] [phone] Social History Tobacco Use Types Packs/Day Years Used Date Smoking Tobacco: Every Day Cigarettes Last attempted to quit: 03/30/2013 Smokeless Tobacco: Never Alcohol Use Standard Drinks/Week Comments Yes 0 (1 standard drink = 0.6 oz pur e alcohol) occas Comments No Sex and Gender Information Value [...] COVID-19 10/25/2020 10/25/2020 11/04/2020 7:18 PM EDT Assessment Noted Time PHQ-9 Depression Total Score: 2 12/27/19 16 8:00 AM EDT documented as of this encounter Care Teams Security Patrol Driver Relationship Specialty Start Date End Date Hemanth Barnhart MD [address] [place] [address] PCP - General Internal Medicine 08/20/15 11/01/21 documented as of this encounter
--- OUTSIDE RECORDS SUMMARY | 2024-12-24 14:51 | XMS_ITS | Encounter Summary ---
Author Organization [employer] Address [address] [facility] 7t [place] [address] Care Team Providers Care Hoist Worker Name Role Phone Sylvia Sheriff MD Primary Care Provider [phone] Yasmeen Tomas Unavailable Radha Tomas RN Unavailable [phone] Serenity Bronson RN Unavailable [phone] Encounter Details Date Type Department Care Team (Late st Contact Info) Description 02/04/2023 Orders Only [facility] MEDICINE [address] [place], [place] [phone] Sylvia Sheriff MD [address] [place], [place] [phone] Hypercalcemia (Primary Dx) Social History Tobacco Use Types [...] of this encounter Plan of Treatment Scheduled Orders Name Type Priority Associated Diagnoses Orde r Schedule Basic Metabolic Panel Lab Routine Hypercalcemia Expected: 02/04/2023 (Approximate), Expires: 02/05/2024 PTH, Intact Without Calcium Lab Routine Hypercalcemia Expected: 02/04/2023, Expires: 02/05/2024 Vitamin D, 25-Hydroxy, Total, Immunoassay Lab Routine Hypercalcemia Expected: 02/04/2023 (Approximate), Expires: 02/05/2024 Calcium, Ionized Lab Routine Hypercalcemia Expected: 02/04/2023 (Approximate), Expires: 02/05/2024 Albumin Lab Routine Hypercalcemia Expected: 02/04/2023 (Approximate), Expires: 02/05/2024 documented as of this encounter Visit Diagnoses Diagnosis Hypercalcemia- Primary documented in this encounter Additional Health Concerns Assessment Noted Time PHQ-9 Depression Total Score: 6 03/08/19 23 9:55 AM EST documented as of this encounter Care Teams Hoist Worker Relationship Specialty Start Date End Date Sylvia Sheriff MD [address] [place] [address] PCP - General Family Medicine 01/26/22 Yasmeen Tomas Community Health Worker 08/12/23 Radha Tomas RN [address] [place] [address] Evs Tech 10/07/23 11/10/23 Serenity Bronson, EHSAN Registered Nurse Internal Medicine 10/12/24 10/13/24 Justus Rainey Associate Professor Of GeologyDocumentation Engineer 01/08/24 documented as of this encounter
--- OUTSIDE RECORDS SUMMARY | 2024-12-24 14:51 | XMS_ITS | Encounter Summary ---
Author Organization [facility] Address [address] [place] [address] Care Team Providers Care Acquisition Manager Name Role Phone Hemanht Barnhart MD Primary Care Provider + Encounter Details Date Type Department Care Team (Late st Contact Info) Description 08/18/2018 Scanned Document [facility] [address] [place] [address], [address] [place], [place] [address] Hemanth Barnhart MD [address] [place] [phone] Social History Tobacco Use Types Packs/Day Years Used Date Smoking Tobacco: Every Day Cigarettes Last attempted to quit: 03/30/2013 Smokeless Tobacco: Never Alcohol Use Standard Drinks/Week Comments Yes 0 (1 standard drink = 0.6 oz pur e alcohol) occas Comments Unknown Sex and Gender Information Value [...] documented as of this encounter Care Teams Acquisition Manager Relationship Specialty Start Date End Date Hemanth Barnhart MD [address] [place] [address] PCP - General Internal Medicine 08/20/15 11/01/21 documented as of this encounter
--- OUTSIDE RECORDS SUMMARY | 2024-12-24 14:51 | XMS_ITS | Encounter Summary ---
Author Organization [employer] Address [address] [facility] 7t [place] [address] Care Team Providers Care Graduate Recruiter Name Role Phone Sylvia Sheriff MD Primary Care Provider [phone] Yasmeen Tomas Unavailable Radha Tomas RN Unavailable Serenity Bronson RN Unavailable [phone] Encounter Details Date Type Department Care Team (Late st Contact Info) Description 01/29/2023 Abstract [facility] MEDICINE [address] [place], [place] [phone] Sylvia Sheriff MD [address] [place], [place] [phone] Social History Tobacco Use Types Packs/Day Years [...] Procedure Name Priority Date/Time Associated Diagnosis Comments PAP/HPV Routine 04/11/2021 documented in this encounter Results * Pap Smear (04/11/2021) Pap Negative for intraephithelial lesion or malignancy Negative for intraephithelial lesion or malignancy, Other HPV Undetected Undetected, Indeterminate, Quantitative, Not Detected Felix Peña MD HEALTH MAINTENANCE Final Result documented in this encounter Visit Diagnoses Not on filedocumented in this encounter Additional Health Concerns Assessment Noted Time PHQ-9 Depression Total Score: 6 03/08/19 23 9:55 AM EST documented as of this encounter Care Teams Graduate Recruiter Relationship Specialty Start Date End Date Sylvia Sheriff MD [address] [place] [address] PCP - General Family Medicine 01/26/22 Yasmeen Tomas Community Health Worker 08/12/23 Radha Tomas, EHSAN [address] [place] [address] Circuit Judge 10/07/23 11/10/23 Serenity Bronson RN Registered Nurse Internal Medicine 10/12/24 10/13/24 Justus Rainey Vocal Music TeacherPlastic Straightening Roll Operator 01/08/24 documented as of this encounter
--- OUTSIDE RECORDS SUMMARY | 2024-12-24 14:51 | XMS_ITS | Encounter Summary ---
Author Organization [facility] Address [address] [place] [address] Care Team Providers Care Tire Cord Weaver Name Role Phone Hemanth Barnhart MD Primary Care Provider + Reason for Visit * Reason Comments Medication Refill Encounter Details Date Type Department Care Team (Late st Contact Info) Description 10/27/2021 Refill [facility] INTERNAL MEDICINE [address] [place] [address] Hemanth Barnhart MD [address] [place] [address] Medication Refill Social History Tobacco [...] documented as of this encounter Care Teams Tire Cord Weaver Relationship Specialty Start Date End Date Hemanth Barnhart MD [address] [place] [address] PCP - General Internal Medicine 08/20/15 11/01/21 documented as of this encounter
--- OUTSIDE RECORDS SUMMARY | 2024-12-24 14:51 | XMS_ITS | Encounter Summary ---
Author Organization [employer] Address [address] [facility] 7t [place] [address] Care Team Providers Care Journalism Instructor Name Role Phone Sylvia Sheriff MD Primary Care Provider [phone] Yasmeen Tomas Unavailable Serenity Bronson RN Unavailable [phone] Encounter Details Date Type Department Care Team ([facility] st Contact Info) Description 02/17/2024 Orders Only [facility] MEDICINE [address] [place], [place] [phone] Sylvia Sheriff MD [address] [place] [address] Encounter for testing for latent tuberculosis (Primary Dx) Social History Tobacco Use Types [...] Type Priority Associated Diagnoses Orde r Schedule [facility] .TB Lab Routine Encounter for testing for latent tuberculosis Expected: 02/17/2024 (Approximate), Expires: 02/16/2025 documented as of this encounter Visit Diagnoses Diagnosis Encounter for testing for latent tuberculosis- Primary documented in this encounter Additional Health Concerns Assessment Noted Time PHQ-9 Depression Total Score: 14 024 11:14 AM EDT documented as of this encounter Care Teams Journalism Instructor Relationship Specialty Start Date End Date Sylvia Sheriff MD [address] [place] [address] PCP - General Family Medicine 01/26/22 Yasmeen Tomas Community Health Worker 08/12/23 Serenity Bronson, EHSAN Registered Nurse Internal Medicine 10/12/24 10/13/24 Justus Rainey Electrifier OperatorProfessional Bass Fisher 01/08/24 documented as of this encounter
--- OUTSIDE RECORDS SUMMARY | 2024-12-24 14:51 | XMS_ITS | Encounter Summary ---
Author Organization [facility] Address [address] [place] [address] Care Team Providers Care Housing Counselor Name Role Phone Unavailable Primary Care Provider Unavailabl e Reason for Visit * Reason Comments Medication Refill Encounter Details Date Type Department Care Team (Late Contact Info) Description 01/19/2022 Refill [facility] INTERNAL MEDICINE [address] [place] [address] Stella Gomez MD MPH [address] [place] [address] Medication Refill Social History Tobacco [...] PM EST documented as of this encounter Miscellaneous Notes * Telephone Encounter - Hugh Hatch RN - 01/22/2022 8:21 AM EST Per Dec 15 PCP note, pt moved to [place] in late 2020 documented in this encounter Plan of Treatment Not on file documented as of this encounter Visit Diagnoses Not on filedocumented in this encounter Additional Health Concerns Assessment Noted Time PHQ-9 Depression Total Score: 0 06/17/19 10:00 AM EDT documented as of this encounter
--- OUTSIDE RECORDS SUMMARY | 2024-12-24 14:51 | XMS_ITS | Encounter Summary ---
Author Organization [facility] Address [address] [place] [address] Care Team Providers Care Electronic System Engineer Name Role Phone Unavailable Primary Care Provider Unavailabl e Reason for Visit * Reason Comments Medication Refill Encounter Details Date Type Department Care Team (Late st Contact Info) Description 01/16/2022 Refill [facility] INTERNAL MEDICINE [address] [place] [address] Hemanth Barnhart MD [address] [place] [address] Medication Refill Social History Tobacco [...]
--- OUTSIDE RECORDS SUMMARY | 2024-12-24 14:51 | XMS_ITS | Encounter Summary ---
Author Organization [employer] Address [address] [place] [address] 7t [place] [address] Care Team Providers Care Supervisor Specialty Plant Name Role Phone Sylvia Sheriff MD Primary Care Provider [phone] Yasmeen Tomas Unavailable Radha Tomas RN Unavailable [phone] Serenity Bronson RN Unavailable [phone] Reason for Visit * Reason Comments Med Refill Encounter Details Date Type Department Care Team (Late st Contact Info) Description 06/22/2022 Refill [facility] MEDICINE [address] [place], [place] [phone] Sylvia Sheriff MD [address] [place], [place] [phone] Fibromyalgia Social History Tobacco Use Types Packs/Day [...] documented as of this encounter Care Teams Supervisor Specialty Plant Relationship Specialty Start Date End Date Sylvia Sheriff MD [address] [place] [address] PCP - General Family Medicine 01/26/22 Yasmeen Tomas Community Health Worker 08/12/23 Radha Tomas, EHSAN [address] [place] [address] Vehicle Service Attendant 10/07/23 11/10/23 Serenity Bronson, RN Registered Nurse Internal Medicine 10/12/24 10/13/24 Justus Rainey Transition Social WorkerIn Home Caregiver 01/08/24 documented as of this encounter
--- OUTSIDE RECORDS SUMMARY | 2024-12-24 14:51 | XMS_ITS | Encounter Summary ---
Author Organization [facility] Address [address] [place] [address] Care Team Providers Care Wan Support Specialist Name Role Phone Unavailable Primary Care Provider Unavailabl e Reason for Visit * Reason Comments Medication Refill Encounter Details Date Type Department Care Team (Late st Contact Info) Description 01/19/2022 Refill [facility] INTERNAL MEDICINE [address] [place] [address] Hemanth Barnhart MD [address] [place] [address] Medication Refill Social History Tobacco [...]
--- OUTSIDE RECORDS SUMMARY | 2024-12-24 14:51 | XMS_ITS | Encounter Summary ---
Author Organization [facility] Address [address] [place] [phone] Care Team Providers Care Gear Lapping Machine Operator Name Role Phone Hemanth Barnhart MD Primary Care Provider + Encounter Details Date Type Department Care Team (Late st Contact Info) Description 09/29/2018 Scanned Document [facility] General Surgical Specialties - General Surgery [address] [facility], 2nd [place] [address] Jovan Villavicencio MD [address] [place] [phone] Social History Tobacco Use Types Packs/Day Years [...] documented as of this encounter Care Teams Gear Lapping Machine Operator Relationship Specialty Start Date End Date Hemanth Barnhart MD [address] [place] [address] PCP - General Internal Medicine 08/20/15 11/01/21 documented as of this encounter
--- OUTSIDE RECORDS SUMMARY | 2024-12-24 14:51 | XMS_ITS | Encounter Summary ---
Author Organization [employer] Address [address] [facility] 7t [place] [address] Care Team Providers Care Sample Tester Grinder Name Role Phone Sylvia Sheriff MD Primary Care Provider [phone] Yasmeen Tomas Unavailable Serenity Bronson RN Unavailable [phone] Reason for Visit * Reason Onset Date Comments Appointment Request 06/10/2024 Encounter Details Date Type Department Care Team ([facility] st Contact Info) Description 06/10/2024 Telephone [facility] MEDICINE [address] [place], [place] [phone] Sylvia Sheriff MD [address] [place], [place] [phone] Appointment Request Social History Tobacco Use Types Packs/Day Years [...] encounter Miscellaneous Notes * Telephone Encounter - Jose Jacobs - 06/10/2024 10:37 AM EDT Tc from pt requesting to reschedule follow up form 05/25 bu ad copy writer was unable to find availability. Please contact pt at [phone]. documented in this encounter Plan of Treatment Not on file documented as of this encounter Visit Diagnoses Not on filedocumented in this encounter Additional Health Concerns Assessment Noted Time PHQ-9 Depression Total Score: 14 024 11:14 AM EDT documented as of this encounter Care Teams Sample Tester Grinder Relationship Specialty Start Date End Date Sylvia Sheriff MD [address] [place] [address] PCP - General Family Medicine 01/26/22 Yasmeen Tomas Community Health Worker 08/12/23 Serenity Bronson, EHSAN Registered Nurse Internal Medicine 10/12/24 10/13/24 Justus Rainey Family Preservation CaseworkerHarpsichord Maker 01/08/24 documented as of this encounter
--- OUTSIDE RECORDS SUMMARY | 2024-12-24 14:51 | XMS_ITS | Encounter Summary ---
Author Organization [employer] Address [address] [place] [address] 7t [place] [address] Care Team Providers Care Barrel Dedenting Machine Operator Name Role Phone Sylvia Sheriff MD Primary Care Provider [phone] Yasmeen Tomas Unavailable Radha Tomas RN Unavailable [phone] Serenity Bronson RN Unavailable [phone] Reason for Visit * Reason Comments Med Refill Encounter Details Date Type Department Care Team (Late st Contact Info) Description 07/27/2022 Refill [facility] MEDICINE [address] [place], [place] [phone] Sylvia Sheriff MD [address] [place], [place] [phone] Gastroesophageal reflux disease, unspecified whether esophagitis present [...] documented as of this encounter Care Teams Barrel Dedenting Machine Operator Relationship Specialty Start Date End Date Sylvia Sheriff MD [address] [place] [address] PCP - General Family Medicine 01/26/22 Yasmeen Tomas Community Health Worker 08/12/23 Radha Tomas, RN [address] [place] [address] Director Of Employee Development 10/07/23 11/10/23 Serenity Bronson, RN Registered Nurse Internal Medicine 10/12/24 10/13/24 Justus Rainey Seo CoordinatorTube Handler 01/08/24 documented as of this encounter
--- OUTSIDE RECORDS SUMMARY | 2024-12-24 14:51 | XMS_ITS | Clinical Summary ---
Author Organization [employer] Address [address] [facility] [address] [place] [address] Care Team Providers Care Supervisor Asbestos Removal Name Role Phone Sylvia Sheriff MD Primary Care Provider [phone] Yasmeen Tomas Unavailable Allergies Active Allergy Reactions Criticality Noted Date Comments Aspirin 02/20/2021 Medications * This document contains information received from the source organization and may not represent a complete record from that organization. naproxen (Naprosyn) 375 MG tablet TAKE 1 TABLET BY MOUTH TWICE A DAY WITH FOOD 60 tablet 1 023 Active Misc. Devices (Pulse Oximeter) miscIndications :Acute respiratory failure with hypoxia (CMS/HCC) ([facility]) Use as needed to check SpO2. If < 92 and does not go up after albuterol, go to ED or call 911 1 each 024 Active nicotine polacrilex (Commit) 2 MG lozengeIndicati ons:Tobacco dependence Dissolve 1 lozenge (2 mg) in the mouth if needed for smoking cessation. 1 lozenge every 1-2 hours 81 lozenge 11 024 Active ipratropium-alb uterol (Duo-Neb) 0.5-2.5 mg/3 mL nebulizer solution Take 3 mL by nebulization every 6 (six) hours. 180 mL 11 024 Active hydrALAZINE (Apresoline) 10 MG tablet Take 1 tablet (10 mg) by mouth 2 times daily. 180 tablet 3 024 Active SUMAtriptan (Imitrex) 50 MG tablet Take 1 tablet (50 mg) by mouth 1 (one) time if needed for migraine. May repeat dose once in 2 hours if no relief. Do not exceed 2 doses in 24 hours. Quantity limit 12 tablets per 25 days. 12 tablet 3 Active budesonide-form oterol (Symbicort) 80-4.5 MCG/ACT inhaler Inhale 2 puffs 2 times daily. Active tiZANidine (Zanaflex) 4 MG tabletIndicatio ns:Acute low back pain without sciatica, unspecified back pain laterality Take 1 tablet (4 mg) by mouth every 8 (eight) hours if needed for muscle spasms for up to 5 days. 15 tablet Active Blood Pressure kitIndications: Essential hypertension 1 kit Once per day. 1 kit Active Eliquis 5 MG tablet Take 1 tablet (5 mg) by mouth 2 times daily. 180 tablet 3 Active metFORMIN (Glucophage) 500 MG tabletIndicatio ns:Type 2 diabetes mellitus without complication, without long-term current use of insulin (HCC) take 1 tablet by oral route 2 times every day with morning and evening meals 180 tablet 3 Active atorvastatin (Lipitor) 10 MG tabletIndicatio ns:Hyperlipidem ia Take 1 tablet (10 mg) by mouth at bedtime. 90 tablet 3 024 2024 Active ferrous sulfate 325 (65 Fe) MG EC tablet Take 1 tablet (325 mg) by mouth every other day. TAKE WITH VITAMIN C TO HELP ABSORPTION 45 tablet 3 Active Alcohol Swabs (Alcohol Prep) pads Check BG every morning and as needed 100 each 3 Active FreeStyle lancets 1 each by Other route Once per day. Check blood glucose 100 each 3 Active pantoprazole (ProtoNix) 40 MG EC tabletIndicatio ns:Dyspepsia,Ga stroesophageal Reflux Disease TAKE 1 TABLET BY MOUTH IN THE MORNING -DO NOT CRUSH, CHEW, OR SPLIT 180 tablet 3 Active nystatin (Mycostatin) 475145 UNIT/GM powder Apply topically 2 times daily. to affected area 60 g 1 Active losartan (Cozaar) 100 MG tabletIndicatio ns:Primary hypertension TAKE 1 TABLET BY MOUTH EVERY DAY IN THE MORNING 90 tablet 3 024 Active albuterol (2.5 MG/3ML) 0.083% nebulizer solution INHALE 1 VIAL BY NEBULIZER EVERY 6 HOURS NEEDED FOR WHEEZING/SHORTN ESS OF BREATH 024 Active Trelegy Ellipta 200-62.5-25 MCG/ACT aerosol powder INHALE 1 PUFF BY MOUTH DAILY AT THE SAME TIME EVERY DAY 024 Active ipratropium-alb uterol (Combivent Respimat) 20-100 MCG/ACT inhaler INHALE 1 PUFF 4 TIMES EVERY DAY MAY TAKE ADDITIONAL PUFFS NEEDED NOT TO EXCEED 6 PUFFS IN 24HRS 12 g 3 025 Active flecainide (Tambocor) 100 MG tablet Take 2 tablets (200 mg) by mouth if needed each day (for palpitations and elevated heart rate greater 130 bpm). 180 tablet 3 025 Active metoprolol tartrate (Lopressor) 25 MG tablet Take 1 tablet (25 mg) by mouth 2 times daily. 180 tablet 3 025 Active glucose blood (FREESTYLE LITE) test stripIndication s:Type 2 diabetes mellitus with other specified complication, without long-term current use of insulin (HCC) USE DIRECTED TO TEST BLOOD SUGAR THREE TIMES DAILY 100 each 5 025 Active fluticasone (Flonase) 50 MCG/ACT nasal spray Administer 1 spray into each nostril Once per day. 16 g 2 025 Active pregabalin (Lyrica) 100 MG capsuleIndicati ons:Fibromyalgi a Take 1 capsule (100 mg) by mouth every 6 (six) hours during the day. 90 capsule 025 Active Fluticasone-Ume clidin-Vilant (Trelegy Ellipta) 100-62.5-25 MCG/ACT aerosol powder Inhale 1 puff Once per day. Se at the same time every day 28 each 11 025 Active cholecalciferol VITAMIN D (Vitamin D-3) 50 MCG (2000 UT) capsule Take 1 capsule (50 mcg) by mouth Once per day. 90 capsule 3 025 Active amLODIPine (Norvasc) 10 MG tabletIndicatio ns:Primary hypertension Take 1 tablet (10 mg) by mouth in the morning. 90 tablet 3 Active DULoxetine (Cymbalta) [address] capsuleIndicati ons:Fibromyalgi a Take 2 capsules by mouth in the morning and 1 capsule in the evening. 270 capsule 3 Active meclizine (Antivert) 25 MG tablet TAKE 1 TABLET BY MOUTH THREE TIMES DAILY IN THE MORNING, AT NOON, AND AT BEDTIME NEEDED FOR DIZZINESS 30 tablet 1 Active Airsupra 90-80 MCG/ACT aerosol INHALE 2 PUFFS BY MOUTH EVERY 4 TO 6 HOURS NEEDED FOR DIFFICULTY BREATHING. DO NOT EXCEED 10 PUFFS PER DAY. 10.7 g 1 Active doxycycline (Vibra-Tabs) 100 MG tablet Take 1 tablet (100 mg) by mouth 2 times daily for 10 days. Take with a full glass of water and do not lie down for at least 30 minutes after. 20 tablet 2024 Active predniSONE (Deltasone) 20 MG tablet Take 1 tablet (20 mg) by mouth Once per day for 5 days. 5 tablet 2024 Active Fluticasone Furoate-Vilante rol (Breo Ellipta) 100-25 MCG/ACT aerosol powder Inhale 1 puff Once per day. 1 each Active Umeclidinium [place] (Incruse Ellipta) 62.5 MCG/ACT aerosol powder Inhale 1 Act (62.5 mcg) Once per day. 1 each Active DULoxetine (Cymbalta) [address] capsuleIndicati ons:Fibromyalgi a Take 2 capsules by mouth in the morning and 1 capsule in the evening. 270 capsule 3 024 2024 Discontinued(R eorder (will not trigger notification to Pharmacy)) cholecalciferol VITAMIN D (Vitamin D-3) 50 MCG (1999 UT) capsule Take 1 capsule (50 mcg) by mouth Once per day. 90 capsule 3 024 2024 Discontinued(R eorder (will not trigger notification to Pharmacy)) amLODIPine (Norvasc) 10 MG tabletIndicatio ns:Primary hypertension TAKE 1 TABLET BY MOUTH EVERY DAY IN THE MORNING 90 tablet 3 024 2024 Discontinued(R eorder (will not trigger notification to Pharmacy)) meclizine (Antivert) 25 MG tablet Take 1 tablet (25 mg) by mouth if needed in the morning, at noon, and at bedtime for dizziness. 30 tablet 1 025 2024 Discontinued Airsupra 90-80 MCG/ACT aerosol Inhale 2 puffs Every 4-6 hours as needed (difficulty breathing). Maximum daily dose 5 doses / 10 puffs 10.7 g 1 025 2024 Discontinued pregabalin (Lyrica) 100 MG capsuleIndicati ons:Fibromyalgi a TAKE 1 CAPSULE BY MOUTH THREE TIMES DAILY 90 capsule 025 2024 Discontinued(R eorder (will not trigger notification to Pharmacy)) acetaminophen (Tylenol Extra Strength) 500 MG tablet Take 1 tablet (500 mg) by mouth every 6 (six) hours if needed for mild pain. 120 tablet 025 2024 amoxicillin-cla vulanate (Augmentin) 875-125 MG tablet Take 1 tablet by mouth 2 times daily for 7 days. 14 tablet 025 2024 Active Problems Problem Noted Date Diagnosed Date Type 2 diabetes mellitus wit h ophthalmic complication, without long-term current use of insulin 10/25/2024 Smoking greater than 20 pack years 10/25/2024 Assessment & Plan (10/25/2024 7:05 PM EDT): - Followed by [facility] [place], last seen in October 2023 - Last CT scan on 11/15/2023 lung RADS 1S - Next CT due in October 2024 Stage 3a chronic kidney disease (CMS/HCC) 2024 Assessment & Plan (10/25/2024 6:54 PM EDT): - in a setting of diabetes mellitus type 2, hypertension - kidney failure risk 0.17% at 2 years, 0.55% at 5 years - continue losartan - avoid nephrotoxic drugs Assessment & Plan (07/19/2024 6:31 PM EDT): - in a setting of diabetes mellitus type 2, hypertension - kidney failure risk 0.17% at 2 years, 0.55% at 5 years - continue losartan - avoid nephrotoxic drugs Left shoulder pain 07/13/2024 Assessment & Plan (07/13/2024 12:23 PM EDT): - Will evaluate with x-ray - Likely tendinopathy - Will refer to orthopedist Carpal tunnel syndrome on both sides 07/13/2024 Assessment & Plan (07/13/2024 12:22 PM EDT): - Symptomatic on right side currently - Will prescribe a new brace. Recommend activity modification. - Will order NCT/ EMG - Will refer to orthopedist Papilledema associated with increased intracrani al pressure 03/13/2024 Assessment & Plan (10/25/2024 6:53 PM EDT): - known history of mood intracranial hypertension -Previously received LP from neurologist - Upcoming appointment with neurologist Proptosis 03/13/2024 Colon cancer screening 02/13/2024 Assessment & Plan (02/13/2024 7:34 PM EST): Pt agreed to at home stool test, will send ColoGuard. Atrial fibrillation (CMS/HCC) 12/28/2023 Assessment & Plan (10/25/2024 6:53 PM EDT): -[id number] Score: 3 -Group Chief Operator: Has not followed up, encouraged to schedule appt -Rate control: Metoprolol. 116 in clinic 02/13/24, discussed monitoring at home and gave ER precautions. -Rhythm control: flecainide prn, since the hospital discharge in Nov 2023 -Anticoagulation: apixaban -Last Holter monitor: Not completed yet -Last transthoracic echocardiogram: 11/27/23 -Continue current management Assessment & Plan (07/19/2024 6:53 PM EDT): -[id number] Score: 3 -Group Chief Operator: Has not followed up, encouraged to schedule appt -Rate control: Metoprolol. 116 in clinic 02/13/24, discussed monitoring at home and gave ER precautions. -Rhythm control: in Atrial fibrilation -Anticoagulation: on Eliquis -Last Holter monitor: -Last transthoracic echocardiogram: -Continue current management Assessment & Plan (02/13/2024 7:42 PM EST): -[id number] Score: 3 -Group Chief Operator: Has not followed up, encouraged to schedule appt -Rate control: 116 in clinic 02/13/24, discussed monitoring at home and gave ER precautions. -Rhythm control: in Atrial fibrilation -Anticoagulation: on Eliquis -Last Holter monitor: -Last transthoracic echocardiogram: -Continue current management Assessment & Plan (02/01/2024 2:09 PM EST): Rate controlled, tolerating anticoagulant, continue current regimen Upcoming visit with cardiology Assessment & Plan (12/28/2023 10:47 AM EDT): Reviewed reasoning for metoprolol and eliquis Pt verbalizes understanding and is willing to restart Has upcoming follow up with cardiology Hypercalcemia 12/18/2023 Assessment & Plan (10/25/2024 6:54 PM EDT): - last calcium level 10.8 mg/dL, normal albumin level - vitamin D deficiency / insufficiency - continue monitoring - check PTH with next lab Assessment & Plan (07/19/2024 6:33 PM EDT): - last calcium level 10.8 mg/dL, normal albumin level - vitamin D deficiency / insufficiency - continue monitoring - check PTH with next lab Vitamin D deficiency 11/02/2023 Assessment & Plan (11/02/2023 6:41 AM EDT): - previously on supplement Dyslipidemia 01/31/2023 Assessment & Plan (10/25/2024 6:46 PM EDT): - Last Lipid panel 02/13/24 TC 174, TG 123, LDL, 114, HDL 36 - Current medication: atorvastatin 10 mg at bedtime - Continue working on lifestyle modification Assessment & Plan (10/14/2024 3:34 PM EDT): - Last Lipid panel 02/13/24 TC 174, TG 123, LDL, 114, HDL 36 - Current medication: atorvastatin 10 mg at bedtime - Continue working on lifestyle modification Assessment & Plan (07/19/2024 6:51 PM EDT): Last Lipid panel 02/13/24 TC 174, TG 123, LDL, 114, HDL 36 Current medication: atorvastatin 10 mg at bedtime Continue working on lifestyle modification Assessment & Plan (02/13/2024 7:35 PM EST): Last Lipid panel 02/13/24 TC 174, TG 123, LDL, 114, HDL 36 Current medication: atorvastatin 10 mg at bedtime Continue working on lifestyle modification Assessment & Plan (01/31/2023 6:32 AM EST): Last lipid profile: 03/08/22 TC 148; TG 113; HDL 37; LDL 90 Current medication: atorvastatin 10 mg at bedtime Continue working on lifestyle modification Fibromyalgia 03/08/2022 Assessment & Plan (10/25/2024 6:58 PM EDT): - continue duloxetine - change cyclobenzaprine to baclofen - continue judicious use of pregabalin, will increase to 100 mg 02/13/24 - treatment history: previously tried amitriptyline which was ineffective Assessment & Plan (02/13/2024 7:29 PM EST): - continue duloxetine - change cyclobenzaprine to baclofen - continue judicious use of pregabalin, will increase to 100 mg 02/13/24 - treatment history: previously tried amitriptyline which was ineffective Assessment & Plan (10/29/2023 11:26 AM EDT): - continue duloxetine - change cyclobenzaprine to baclofen - continue judicious use of pregabalin - treatment history: previously tried amitriptyline which was ineffective Assessment & Plan (02/01/2023 1:14 PM EST): - continue duloxetine - change cyclobenzaprine to baclofen - continue judicious use of pregabalin - treatment history: previously tried amitriptyline which was ineffective Assessment & Plan (03/08/2022 5:50 AM EST): - continue duloxetine - continue cyclobenzaprine - continue judicious use of pregabalin - treatment history: previously tried amitriptyline which was ineffective Intracranial hypertension 03/08/2022 Assessment & Plan (10/25/2024 6:57 PM EDT): - Had LP on diagnosis >10 years ago - previously on acetazolamige 500mg ER in am with 125mg am, but pt self- discontinued due to increased urinary frequency - MRI 03/18 normal - s/p LP by neurology in 2022. - missed recent appt, has info to call and reschedule (next appointment is not until next year) - referred to another neurologist in June 2024 Assessment & Plan (07/19/2024 6:58 PM EDT): - Had LP on diagnosis >10 years ago - previously on acetazolamige 500mg ER in am with 125mg am, but pt self- discontinued due to increased urinary frequency - MRI 03/18 normal - s/p LP by neurology in 2022. - missed recent appt, has info to call and reschedule (next appointment is not until next year) - Will Refer to another neurologist since her pain is worse Assessment & Plan (02/01/2023 1:07 PM EST): - Had LP on diagnosis >10 years ago - previously on acetazolamige 500mg ER in am with 125mg am, but pt self- discontinued due to increased urinary frequency - MRI 03/18 normal - s/p LP by neurology earlier this year. - missed recent appt, has info to call and reschedule Assessment & Plan (03/08/2022 5:36 AM EST): - Had LP on diagnosis >10 years ago - chronically on acetazolamige 500mg ER in am with 125mg am as well - MRI 03/18 normal - s/p LP by neurology earlier this year. - missed recent appt, has info to call and reschedule SUDHAKAR (obstructive sleep apnea) 03/08/2022 Assessment & Plan (10/25/2024 6:57 PM EDT): - she is symptomatic with snoring, apnea and day time fatigue. Was previously on CPAP. Has class 3 obesity and HTN - referred to sleep medicine clinic, pt was advised to call the office to reschedule - patient states she had intolerance to CPAP due to claustrophobia Assessment & Plan (07/13/2024 12:29 PM EDT): - she is symptomatic with snoring, apnea and day time fatigue. Was previously on CPAP. Has class 3 obesity and HTN - referred to sleep medicine clinic, pt was advised to call the office to reschedule - patient states she had intolerance to CPAP due to claustrophobia Assessment & Plan (12/28/2023 10:45 AM EDT): Referral to sleep medicine Assessment & Plan (10/29/2023 11:39 AM EDT): - she is symptomatic with snoring, apnea and day time fatigue. Was previously on CPAP. Has class 3 obesity and HTN - referred to sleep medicine clinic, will check its status - patient states she had intolerance to CPAP due to claustrophobia Assessment & Plan (07/12/2023 7:15 PM EDT): - she is symptomatic with snoring, apnea and day time fatigue. Was previously on CPAP. Has class 3 obesity and HTN - will refer to sleep medicine clinic Assessment & Plan (01/31/2023 8:49 AM EST): - she is symptomatic with snoring, apnea and day time fatigue. Was previously on CPAP. Has class 3 obesity and HTN - will refer to sleep medicine clinic Assessment & Plan (03/10/2022 7:14 AM EST): - she is symptomatic with snoring, apnea and day time fatigue. Was previously on CPAP. Has class 3 obesity and HTN - will refer to sleep medicine clinic Iron deficiency anemia 03/08/2022 Assessment & Plan (01/31/2023 8:52 AM EST): - intolerant to oral iron - s/p IV iron infusions with hematology - was referred to GI by hemetology for colonoscopy and by PCP Assessment & Plan (03/08/2022 5:43 AM EST): - intolerant to oral iron - s/p IV iron infusions with hematology - was referred to GI by hemetology for colonoscopy and by PCP GERD (gastroesophageal reflux disease) Assessment & Plan (02/13/2024 7:28 PM EST): - continue pantoprazole Assessment & Plan (01/31/2023 8:57 AM EST): - continue pantoprazole Assessment & Plan (03/08/2022 5:46 AM EST): - continue pantoprazole Obesity 03/08/2022 Assessment & Plan (07/13/2024 12:28 PM EDT): - SUDHAKAR, HTN, DM2 - continue working on lifestyle modifications Assessment & Plan (03/10/2022 7:19 AM EST): - SUDHAKAR, HTN, DM2 - continue working on lifestyle modifications Chronic pain of right ankle 03/08/2022 Assessment & Plan (02/01/2023 1:10 PM EST): - s/p ligament repair surgery in 2009 - steroid injection to the ankle helped in the past - referred to orthopedist in the past - judicious use of NSAIDs - continue working on achieving a healthier weight - check X-ray and refer back to orthopdist Assessment & Plan (03/10/2022 7:19 AM EST): - s/p ligament repair surgery in 2009 - steroid injection to the ankle helped in the past - referred to orthopedist in the past - judicious use of NSAIDs - continue working on achieving a healthier weight Blurred vision 06/16/2019 Rash 06/16/2019 Depression 06/04/2019 Assessment & Plan (10/25/2024 6:58 PM EDT): - PHQ-9 score: 14 in Oct 2023, previously 17 in June 2024 - no suicidal ideation - continue counseling - continue Cymbalta to 60 mg in the morning and 30 mg in the evening Assessment & Plan (07/19/2024 6:35 PM EDT): - PHQ-9 score: 14 in Oct 2023, previously 17 - no suicidal ideation - continue counseling - continue Cymbalta to 60 mg in the morning and 30 mg in the evening Assessment & Plan (10/29/2023 11:42 AM EDT): - PHQ-9 score: 14 today, previously 17 - no suicidal ideation - continue counseling - will increase Cymbalta to 60 mg in the morning and 30 mg in the evening Assessment & Plan (02/08/2023 1:29 PM EST): During [facility] Consult Jen presenting with depressed mood, loss of interests/pleasure , changes in sleep difficulty falling asleep, change in appetite or weight overeating, trouble concentrating, thoughts of worthlessness or guilt, fatigue/loss of energy, inappropriate guilt , hopelessness, difficulty concentrating and excessive worry/anxiety, difficulty controlling worry, restless/keyed up/On edge, easily fatigued, difficulty concentrating/Mind going blank , irritability, and sleep disturbance difficulty falling asleep; for a period of 6-12 mo, for all symptoms in the context of family issues financial concern illness or family illness housing. Jen's dad over a year ago. The holidays are exacerbating symptoms. Lack of support and housing problems have been also identified as main triggers. PLAN: (check all that apply) New/Additional Services needed PCP management Off-site services for BH. Clinician will also place a referral for CM to assist with housing and financial insecurities. Assessment & Plan (01/31/2023 8:52 AM EST): - [facility] [place] - continue duloxetine Assessment & Plan (03/10/2022 7:34 AM EST): - [facility] provider: [facility] in [place] - continue duloxetine Marijuana smoker, continuous 06/04/2019 COPD (chronic obstructive pulmonary disease) 10/2019 Assessment & Plan (10/25/2024 6:57 PM EDT): - seen by [facility] in Dec 2023, missed 3-mo follow up. - maintenance medication: fluticasone / umeclidinium / vilanterol (Trelegy), prescribed in Dec 2023 - rescue medication: albuterol-budesonide and albuterol solution prn - Assessment & Plan (10/14/2024 3:50 PM EDT): - seen by [facility] in Dec 2023, missed 3-mo follow up. - maintenance medication: fluticasone / umeclidinium / vilanterol (Trelegy), prescribed in Dec 2023 - rescue medication: albuterol-budesonide and albuterol solution prn - Hidradenitis 10/16/2018 Tachycardia, unspecified 08/29/2018 Insomnia, unspecified 04/26/2017 Hypertension 01/10/2016 Assessment & Plan (10/25/2024 6:46 PM EDT): -Goal BP < 130/80 per ACC/AHA guideline (Treatment threshold >= 130/80) -BP elevated at last visit, questionable ahdernece -Continue working on lifestyle modifications -Continue current medications: Amlodipine 10 mg daily; losartan 100 mg daily; hydralazine 10 mg bid; metoprolol tartrate 25 mg bid -Treatment Hx: hydrochlorothiazide was once increased to 50 mg daily, but pt had been taking 12.5 mg daily because she disliked its diuretic effect. Discontinued completely. Consider starting for hypercalcemia. Assessment & Plan (07/19/2024 6:50 PM EDT): -Goal BP < 140/90 per JNC-8 and < 130/80 per ACC/AHA guideline (Treatment threshold >= 130/80) -BP elevated today, questionable ahdernece -Treatment Hx: hydrochlorothiazide was increased to 50 mg daily, but pt has been taking 12.5 mg daily because she does not go to urinate frequently. Now pt has discontinued -Continue working on lifestyle modifications -Continue current medications: Amlodipine 10 mg daily; losartan 100 mg daily; hydralazine 10 mg bid - Return for BP check in 1-2 week. If home BP is elevated > 140/90 or clinic BP > 150/90 despite adequate medication adherence, will increase hydralazine to 25 mg bid. Consider combining losartan - amlodipine to decrease pill-burden. Assessment & Plan (02/12/2024 8:51 PM EST): -Goal BP < 140/90 per JNC-8 and < 130/80 per ACC/AHA guideline (Treatment threshold >= 130/80) -BP elevated today -Treatment Hx: hydrochlorothiazide was increased to 50 mg daily, but pt has been taking 12.5 mg daily because she does not go to urinate frequently. Now pt has discontinued -Continue working on lifestyle modifications -Continue current medications: Amlodipine 10 mg daily; losartan 100 mg daily -Add hydralazine 10 mg twice daily -Follow up in 3-6 mo, sooner if any problem arises Assessment & Plan (02/12/2024 8:51 PM EST): >>ASSESSMENT AND PLAN FOR ESSENTIAL HYPERTENSION WRITTEN ON 02/01/2024 2:09 PM BY CHRISTOPH SOLIS NP Above goal today, pt attributes this to back pain monitor Assessment & Plan (12/28/2023 10:47 AM EDT): At goal today continue Assessment & Plan (10/29/2023 11:40 AM EDT): -Goal BP < 140/90 per JNC-8 and < 130/80 per ACC/AHA guideline (Treatment threshold >= 130/80) -BP elevated today -Treatment Hx: hydrochlorothiazide was increased to 50 mg daily, but pt has been taking 12.5 mg daily because she does not go to urinate frequently. Now pt has discontinued -Continue working on lifestyle modifications -Continue current medications: Amlodipine 10 mg daily; losartan 100 mg daily -Add hydralazine 10 mg twice daily -Follow up in 3-6 mo, sooner if any problem arises Assessment & Plan (08/09/2023 6:16 PM EDT): Elevated BP Not using losartan for no particular reason per pt,states taking amlodipine Refilled BP meds today -advised to f up w PCP to f chronic dx and BP -will need repeat chem after resume losartan Assessment & Plan (02/01/2023 1:09 PM EST): -Goal BP < 140/90 per JNC-8 and < 130/80 per ACC/AHA guideline (Treatment threshold >= 130/80) -Treatment Hx: hydrochlorothiazide was increased to 50 mg daily, but pt has been taking 12.5 mg daily because she does not go to urinate frequently. Now pt has discontinued -Continue working on lifestyle modifications -Continue current medications: Amlodipine 10 mg daily; losartan 100 mg daily -Follow up in 3-6 mo, sooner if any problem arises Assessment & Plan (03/10/2022 7:17 AM EST): -Goal BP < 140/90 per JNC-8 and < 130/80 per ACC/AHA guideline (Treatment threshold >= 130/80) -Treatment Hx: hydrochlorothiazide was increased to 50 mg daily, but pt has been taking 12.5 mg daily because she does not go to urinate frequently -Continue working on lifestyle modifications -Continue current medications: Amlodipine 10 mg daily; losartan 100 mg daily; hydrochlorothiazide 12.5 mg daily -Follow up in 3-6 mo, sooner if any problem arises Diabetes mellitus, type II 07/05/2015 Assessment & Plan (10/25/2024 6:52 PM EDT): - Last Hgb A1C 6.5% on 07/13/24, same as 10/29/23 - Continue working on lifestyle modifications - Continue Metformin 500 mg bid -Declined foot exam 07/13/24 -Eye exam: Last seen February 2024 -Lipid panel 02/13/24 TC 174, TG 123, LDL, 114, HDL 36 -Microalbumin test: Jan 2024, UACR 29 Assessment & Plan (07/19/2024 6:54 PM EDT): Last Hgb A1C 6.5% on 07/13/24, same as 10/29/23 continue Metformin 500 mg Declined foot exam 07/13/24 Eye exam: Last seen February 2024 Lipid panel 02/13/24 TC 174, TG 123, LDL, 114, HDL 36 Microalbumin test: Jan 2024, UACR 29 Assessment & Plan (05/24/2024 11:55 AM EDT): >>ASSESSMENT AND PLAN FOR TYPE 2 DIABETES MELLITUS ([facility]) WRITTEN ON 03/10/2022 7:29 AM BY SYLVAI SHERIFF MD - Hgb A1C 6.9% on 03/08/22 today, 6.4% in Nov 2021, slightly worsened - Continue working on lifestyle modifications - Continue metformin 500 mg one tablet twice daily; consider switching to ER and increasing if no improvement at next visit - Consider GLP-1 agonist and / or SGLT-2 inhibitor. - Continue checking glucose: blood glucose monitor - Microalbumin test: Ordered today - Lipid profile: Ordered today - Diabetic eye exam: Pt states up to date; will request record - Foot exam: Pt declined today Assessment & Plan (05/24/2024 11:55 AM EDT): >>ASSESSMENT AND PLAN FOR TYPE 2 DIABETES MELLITUS ([facility]) WRITTEN ON 02/01/2023 1:13 PM BY SYLVIA SHERIFF MD - Hgb A1C 6.0% on 01/31/23, improved from 6.9% 03/08/22, 6.4% in Nov 2021, slightly worsened - Continue working on lifestyle modifications - Continue metformin 500 mg one tablet twice daily; consider switching to ER and increasing if no improvement at next visit - Consider GLP-1 agonist and / or SGLT-2 inhibitor. - Continue checking glucose: blood glucose monitor - Microalbumin test: 03/08/22 UACR 11 - Lipid profile: 03/08/22 TC 148; TG 113; HDL 37; LDL 90 - Diabetic eye exam: Pt states up to date; will request record - Foot exam: Pt declined today Assessment & Plan (05/24/2024 11:55 AM EDT): >>ASSESSMENT AND PLAN FOR TYPE 2 DIABETES MELLITUS ([facility]) WRITTEN ON 10/29/2023 11:31 AM BY EFRAIN RAPHAEL - Hgb A1C 6.5% on 10/29/23 - Continue working on lifestyle modifications - Continue metformin 500 mg one tablet twice daily; consider switching to ER and increasing if no improvement at next visit - Consider GLP-1 agonist and / or SGLT-2 inhibitor. - Continue checking glucose: blood glucose monitor - Microalbumin test: 01/31/23 UACR 32.2 - Lipid profile: 01/31/23 TC 141; TG 143; HDL 35; LDL 78 - Diabetic eye exam: Pt states up to date; will request record - Foot exam: Pt declined today Assessment & Plan (05/24/2024 11:55 AM EDT): >>ASSESSMENT AND PLAN FOR TYPE 2 DIABETES MELLITUS ([facility]) WRITTEN ON 12/28/2023 10:48 AM BY CHRISTOPH SOLIS NP Continue to monitor sugars closely particularly while on prednisone Assessment & Plan (02/13/2024 7:43 PM EST): Continue to monitor sugars closely particularly while on prednisone. Declined foot exam 02/13/24 Eye exam: Has appt next week. Last Hgb A1C 6.5% 10/29/23 - continue Metformin 500 mg Lipid panel 02/13/24 TC 174, TG 123, LDL, 114, HDL 36 - continue Atorvastatin 10 mg Cocaine use 05/04/2015 BPPV (benign paroxysmal positional vertigo) 11/26 Overview (01/16/2024): if I lie down and turn my head my eyes spin in that direction for a few seconds Assessment & Plan (10/25/2024 6:47 PM EDT): - Continue meclizine Intractable chronic migraine without aura and with status migrainosus 12/16/2014 Assessment & Plan (10/25/2024 6:57 PM EDT): - Pt has tried smatriptan which was ineffective. - prescribed topiramate, but patient self-discontinued - referred to neurologist Assessment & Plan (07/19/2024 6:55 PM EDT): - Pt has tried smatriptan which was ineffective. - prescribed topiramate, but patient self-discontinued - referred to neurologist Arthralgia 07/26/2014 Asthma 11/24/2013 Overview (02/12/2024): >>OVERVIEW FOR MILD INTERMITTENT ASTHMA WITHOUT COMPLICATION WRITTEN ON 01/16/2024 11:10 AM BY AMY BELTRE MA IMO 2016 R2.1 update change Assessment & Plan (07/19/2024 6:38 PM EDT): - Last PFT uncertain; will order - Continue fluticasone / salmeterol, ICS/LABA. Consider budesonide / formoterol if pt cannot tolerate fluticasone /salmeterol. - Continue albuterol / ipratropium HFA and neb prn - Continue working on smoking cessation - Treatment hx: previously prescribed Breo, but it was not covered by insurance Assessment & Plan (02/12/2024 8:50 PM EST): - Last PFT uncertain; will order - Continue fluticasone / salmeterol, ICS/LABA. Consider budesonide / formoterol if pt cannot tolerate fluticasone /salmeterol. - Continue albuterol / ipratropium HFA and neb prn - Continue working on smoking cessation - Treatment hx: previously prescribed Breo, but it was not covered by insurance Assessment & Plan (10/29/2023 11:25 AM EDT): - Most recent asthma exacerbation in Nov 2022 - Possible COPD - Last PFT uncertain; will order - Continue fluticasone / salmeterol, ICS/LABA. Consider budesonide / formoterol if pt cannot tolerate fluticasone /salmeterol. - Continue albuterol / ipratropium HFA and neb prn - Continue working on smoking cessation - Treatment hx: previously prescribed Breo, but it was not covered by insurance Assessment & Plan (08/09/2023 6:16 PM EDT): Pt not using symbicort .States using combivent Today Flu and Covid 19 are neg Lung exam is normal w no wheezing on exam -I refilled her symbicort today-encouraged pt to use it and to rinse mouth after use. -has Duoneb NBZ at home prn as well has combivent PRN -alarm signs and symptoms discussed Assessment & Plan (02/03/2023 5:58 AM EST): - Most recent asthma exacerbation in Nov 2022 - Possible COPD - Last PFT uncertain; will order - Continue fluticasone / salmeterol, ICS/LABA. Consider budesonide / formoterol if pt cannot tolerate fluticasone /salmeterol. - Continue albuterol / ipratropium HFA and neb prn - Continue working on smoking cessation - Treatment hx: previously prescribed Breo, but it was not covered by insurance Assessment & Plan (03/10/2022 7:16 AM EST): - Last PFT uncertain; will order - Pt was prescribed Advair, but does not know how to use. She prefers HFA, rather than disk-type. Will check if she can get Symbicort - Continue Combivent - Continue working on smoking cessation - Treatment hx: previously prescribed Breo, but it was not covered by insurance Irregular menstrual cycle 10/22/2013 Myopia 09/24/2013 Tobacco dependence 08/20/2013 Assessment & Plan (10/25/2024 6:56 PM EDT): Continues smoking cessation effort Assessment & Plan (07/19/2024 6:38 PM EDT): Continues smoking cessation effort Assessment & Plan (02/13/2024 7:35 PM EST): Continues to cut down, did not tolerate patch Assessment & Plan (02/01/2024 2:10 PM EST): Continues to cut down, did not tolerate patch Assessment & Plan (12/28/2023 10:48 AM EDT): Encouraged ongoing smoking cessation Assessment & Plan (10/29/2023 11:42 AM EDT): - Smoking > 20 pack years - Referred to lung cancer screening program, patient has upcoming appointment for CT scan - work on smoking cessation Assessment & Plan (02/03/2023 5:57 AM EST): - Smoking > 20 pack years - Refer to lung cancer screening program - work on smoking cessation Female infertility 04/29/2013 Acid reflux disease 04/29/2013 Resolved Problems Problem Noted Date Diagnosed Date Resolved Date COPD exacerbation ([facility]) 12/18/2023 02/12/2024 Assessment & Plan (02/01/2024 2:09 PM EST): Improved, taking and tolerating medications In care with pulmonary, actively working on smoking cessation Assessment & Plan (12/28/2023 10:46 AM EDT): Reviewed importance of taking medications as prescribed Pt willing to restart sybicort inhaler, and prednisone Should panic reoccur call clinic Return to clinic for persistent or worsening breathing symptoms Acute respiratory failure wi th hypoxia ([facility]) 08/09/2023 10/28/2023 Respiratory failure requirin g intubation ([facility]) 08/09/2023 10/28/2023 Overdose, drug 08/09/2023 05/24/2024 Assessment & Plan (11/02/2023 6:54 AM EDT): - intubated due to unresponsiveness, respiratory failure, and airway protection in Mar 2023 (Utox positive cocaine) Abdominal pain 08/09/2023 10/25/2024 Assessment & Plan (08/09/2023 6:17 PM EDT): Abd exam is benign , pt ate here today and abdominal pain improved CBG capillary 89 Reports had diarrhea days ago but now resolved -advised hydration and try to eat consistently -chem,CBC,TSH w reflex ,hb1AC ordered today -alarm signs and symptoms Grief 02/07/2023 05/24/2024 Assessment & Plan (02/08/2023 1:29 PM EST): During IBH Consult Jen presenting with depressed mood, loss of interests/pleasure , changes in sleep difficulty falling asleep, change in appetite or weight overeating, trouble concentrating, thoughts of worthlessness or guilt, fatigue/loss of energy, inappropriate guilt , hopelessness, difficulty concentrating and excessive worry/anxiety, difficulty controlling worry, restless/keyed up/On edge, easily fatigued, difficulty concentrating/Mind going blank , irritability, and sleep disturbance difficulty falling asleep; for a period of 6-12 mo, for all symptoms in the context of family issues financial concern illness or family illness housing. Jen's dad over a year ago. The holidays are exacerbating symptoms. Lack of support and housing problems have been also identified as main triggers. PLAN: (check all that apply) New/Additional Services needed PCP management Off-site services for . Clinician will also place a referral for CM to assist with housing and financial insecurities. COVID-19 virus infection 07/15/2019 Anemia, iron deficiency 04/15/201506/26 BMI 50.0-59.9, adult ([facility]) 10/30/2013 05/24/2024 Encounters Date Type Department Care Team Description 12/24/2024 11:15 AM EDT Office Visit [facility] [address] [place] [phone] Sylvia Sheriff MD Type 2 diabetes mellitus with other specified complication, without long-term current use of insulin ([facility]) 12/24/2024 Travel 12/23/2024 Telephone [facility] [address] [place] [address] Sylvia Sheriff MD chart prep 12/23/2024 Telephone [facility] [address] [place] [address] [phone] Sylvia Sheriff MD Error (VOID this visit) 12/19/2024 Refill [facility] [address] [place] [address] Sylvia Sheriff MD 12/17/2024 Refill [facility] [address], [place] [address] Sylvia Sheriff MD 12/14/2024 Telephone [facility] [address] [place] [address] Sylvia Sheriff MD Med Refill 12/11/2024 Refill [facility] [address] [place] [address] Sylvia Sheriff MD Fibromyalgia 12/11/2024 Orders Only [facility] [address], [place] [address] Sylvia Sheriff MD Fibromyalgia 12/10/2024 Refill [facility] [address], [place] [address] Sylvia Sheriff MD Fibromyalgia 12/09/2024 Refill [facility] [address], [place] [address] Sylvia Sheriff MD Fibromyalgia 12/08/2024 Refill [facility] [address] [place] [address] Sylvia Sheriff MD Fibromyalgia 11/25/2024 Orders Only [facility] [address] [place] [address] Sylvia Sheriff MD 11/23/2024 1:40 PM EDT Office Visit [facility] [address] [place] [address] Amaris Jenkins MD Subacute pansinusitis (Primary Dx); Cough in adult patient 11/23/2024 Travel 11/23/2024 Telephone [facility] [address] [place] [address] Sylvia Sheriff MD Med Refill 11/23/2024 Refill [facility] [address] [place] [address] Sylvia Shreiff MD Type 2 diabetes mellitus with other specified complication, without long-term current use of insulin ([facility]) 11/11/2024 Telephone [facility] [address] Sylvia Sheriff MD Med Refill 11/11/2024 Refill [facility] [address] Sylvia Sheriff MD Fibromyalgia 11/03/2024 Telephone [facility] [place] [address] Sylvia Sheriff MD 10/14/2024 11:00 AM EDT Telemedicine [facility] [place] [address] Sylvia Sheriff MD Primary hypertension (Primary Dx); Dyslipidemia; Benign paroxysmal positional vertigo, unspecified laterality; Type 2 diabetes mellitus with other specified complication, without long-term current use of insulin (CMS/HCC); Type 2 diabetes mellitus with other ophthalmic complication, without long-term current use of insulin ([facility]/HCC); Papilledema associated with increased intracranial pressure; Paroxysmal atrial fibrillation (CMS/HCC); Hypercalcemia; Stage 3a chronic kidney disease ([facility]/HCC); Screening for colon cancer; Tobacco dependence; SUDHAKAR (obstructive sleep apnea); Chronic obstructive pulmonary disease, unspecified COPD type ([facility]/HCC); Intracranial hypertension; Intractable chronic migraine without aura and with status migrainosus; Fibromyalgia; Depression, unspecified depression type; Smoking greater than 20 pack years 10/14/2024 Travel 10/13/2024 Telephone [facility] [place] [address] Sylvia Sheriff MD chart prep 10/13/2024 Telephone [facility] [place] [address] Sylvia Sheriff MD chart prep 10/12/2024 Telephone [facility] [place] [address] Henrietta Mac, RESIDENCY PROGRAM COORDINATOR Follow-up 10/12/2024 Patient Outreach [facility] [place] [address] Sylvia Sheriff MD 10/09/2024 Refill [facility] [place] [address] Sylvia Sheriff MD Fibromyalgia from Last 3 Months Immunizations Immunization Administration Dates Next Due Hep A, Adult 02/13/2024 Hep B, adult 02/13/2024 Influenza, seasonal, injecta ble, preservative free 04/15/2015 Moderna Covid-19 Vaccine 12+ 09/26/2021, 02/22/2021,07/26/2020,2020 Moderna Covid-19 Vaccine 6+ Bivalent 03/08/2022 Pfizer Covid-19 Vaccine 12+ 01/31/2023 Pneumococcal Conjugate PCV 20 01/31/2023 Tdap 11/30/2021,07/02/2011 Social History Tobacco Use Types Packs/Day Years Used Date Smoking Tobacco: Every Day Cigarettes Passive Smoke Exposure: Current Smokeless Tobacco: Current Tobacco Cessation:Ready to Q uit: Not Asked; Counseling Given: Not Answered Alcohol Use Standard Drinks/Week Comments Yes 0 (1 standard drink = 0.6 oz pur e alcohol) Sometimes Depression Answer Date Recorded Patient Health Questionnaire-9 Score 6 12/24/2024 Patient Health Questionnaire-9 Score 6 12/24/2024 Last PHQ-9: Questionnaire Data Not on file 1 Housing Stability Answer Date Recorded What is your housing situation today? I have juan pabloroland johnson 12/24/[address] you [...] Orientation Straight 12/25/2021 10 :39 AM EDT Last Filed Vital Signs Vital Sign Reading [...] Mass Index 44.07 12/24/2024 11:14 AM EDT Plan of Treatment Health Maintenance Due Date Last Done Comments CT Colonography 1970 Colonoscopy 1970 Colorectal Cancer Screening 1970 FIT DNA/Cologuard 1970 FIT 1970 FOBT 1970 HIV Screening 1970 Sigmoidoscopy 1970 Diabetes: Foot Exam 1980 Zoster Vaccines (1 of 2) 2020 Mammogram 09/09/2020 09/09/2018, 08/25, 04/30/2013, Additional history exists Hepatitis B Vaccines (2 of 3 - 19+ 3-dose series) 03/12/2024 02/13/2024 COVID-19 Vaccine ( season) 2024 01/31/2023, 03/08/2022, 09/26/2021, Additional history exists Influenza Vaccine (#1) 2024 04/15/2015 Diabetes: Urine Protein Screening 02/12/2025 02/13/2024, 01/31/2023, 02/20/2021 Diabetes: Hemoglobin A1C 03/26/202512/24/ 025, 12/24/2024, 07/13/2024, Additional history exists Disability Screening 07/13/2025 07/13/2024 Alcohol/Substance Use Screening 12/24/2025 12/24/2024 Depression Screening 12/24/2025 12/24/2024, 12/25/19 Lipid Panel 12/24/2025 12/24/2024, 01/25, 01/31/2023, Additional history exists SDOH Screening 12/24/2025 12/24/2024 Tobacco Screening 12/24/2025 12/24/2024 Eye Exam 02/16/2026 02/17/2024, 01/26, 02/17/2024, Additional history exists HPV/Cotest 04/11/2026 04/11/2021, 03/28, 04/10/2021 Cervical Cancer Screening 04/20/2026 Pap Smear 04/20/2026 04/20/2021, 04/11/2021 DTaP/Tdap/Td Vaccines (3 - Td or Tdap) 12/01/2031 11/30/2021, 07/02/2011 RSV Patients and Patients Aged 60 years or older (1 - 1-dose 75+ series) 2045 Hepatitis C Screening Completed 02/20/2021 Pneumococcal Vaccine: 50+ Years Completed 01/31/2023 Hepatitis A Vaccines Aged Out 02/13/2024 No long er eligible based on patient's age to complete this topic HIB Vaccines Aged Out No longer eligi ble based on patient's age to complete this topic HPV Vaccines Aged Out No longer eligi ble based on patient's age to complete this topic IPV Vaccines Aged Out No longer eligi ble based on patient's age to complete this topic Meningococcal B Vaccine Aged Out No l onger eligible based on patient's age to complete this topic Meningococcal Vaccine Aged Out No kem david eligible based on patient's age to complete this topic RSV under 20 months Aged Out No longe r eligible based on patient's age to complete this topic Rotavirus Vaccines Aged Out No longer eligible based on patient's age to complete this topic Procedures Procedure Name Priority Date/Time Associated Diagnosis Comments TSH W/REFLEX TO FT4 Routine 12/24/2024 1 1:54 AM EDT Paroxysmal atrial fibrillation (CMS/HCC) (HCC) LD Routine 12/24/2024 11:54 AM EDT Leukocytosis, unspecified type LIPID PANEL WITH REFLEX TO DIRECT LDL Routine 12/24/2024 11:54 AM EDT Type 2 diabetes mellitus without complication, without long-term current use of insulin ([facility]) HEMOGLOBIN A1C Routine 12/24/2024 11:54 AM EDT Type 2 diabetes mellitus without complication, without long-term current use of insulin ([facility]) PTH, INTACT WITHOUT CALCIUM Routine 12/24/2024 11:54 AM EDT Hypercalcemia VITAMIN D,25-OH,TOTAL,IA Routine 12/24/2024 11:54 AM EDT Hypercalcemia COMPREHENSIVE METABOLIC PANEL Routine 12/24/2024 11:54 AM EDT Hypercalcemia CBC WITH AUTO DIFFERENTIAL Routine 12/24/2024 11:54 AM EDT Leukocytosis, unspecified type POCT GLYCOSYLATED HEMOGLOBIN (HGB A1C) Routine 12/24/2024 11:13 AM EDT Type 2 diabetes mellitus with other specified complication, without long-term current use of insulin ([facility]) POCT GLUCOSE Routine 12/24/2024 11:10 AM EDT Type 2 diabetes mellitus with other specified complication, without long-term current use of insulin ([facility]) POCT , URINE Routine 11/23/2024 2:07 PM EDT Subacute pansinusitis POCT INFLUENZA A (ID NOW RAPID MOLECULAR) Routine 11/23/2024 1:30 PM EDT Cough in adult patient POCT RAPID COVID ANTIGEN Routine 11/23/2024 1:29 PM EDT Cough in adult patient POCT INFLUENZA B (ID NOW RAPID MOLECULAR) Routine 11/23/2024 1:29 PM EDT Cough in adult patient ALBUMIN, RANDOM URINE W/CREATININE Routine 02/13/2024 10:30 AM EST Primary hypertension Type 2 diabetes mellitus without complication, without long-term current use of insulin (CMS/HCC) HM PAP/HPV Routine 04/20/2021 HM PAP/HPV Routine 04/11/2021 RAMSES HISTORICAL HEPATITIS C AB W/REFL TO HCV RNA, QN, PCR Routine 02/20/2021 10:51 AM EST from Last 3 Months or Most Recently Relevant to Health Maintenance Results * (ABNORMAL) CBC auto differential (12/24/2024 11:54 AM EDT) White Blood Count 6.6 4.8 - 10.8 X10*3/uL [facility] Red Blood Count 5.68(H) 4.20 - 5.50 X10*6/uL [facility] Hemoglobin 15.2 12.0 - 16.0 g/dl [facility] Hematocrit 48.2(H) 37.0 - 47.0 % [facility] Mean Corpuscular Volume 84.9 80.0 - 98.0 fL [facility] Mean Corpuscular Hemoglobin 26.8(L) 27.0 - 33.0 pg [facility] Mean Corpuscular HGB Conc 31.5 31.0 - 35.0 g/dl [facility] Red Cell Distribution Width 14.3 11.0 - 16.0 % [facility] Platelet Count 172 160 - 400 X10*3/uL [facility] Mean Platelet Volume 11.7 9.4 - 12.3 fL [facility] Neutrophils Percent Auto 65.6 45 - 73 % [facility] Imm Gran Pct Auto 0.3 0.0 - 0.4 % [facility] Lymphocytes Percent Auto 24.0 20 - 40 % [facility] Monocytes Percent Auto 6.8 2 - 11 % [facility] Eosinophils Percent Auto 2.7 0 - 4 % [facility] Basophils Percent Auto 0.6 0 - 2 % [facility] NRBC Pct Auto 0.0 0.0 - 0.2 /100WBC [facility] Neutrophils Absolute Auto 4.3 2.0 - 8.3 x10*3/uL [facility] Imm Gran Abs Auto 0.02 0.00 - 0.03 X10*3/uL [facility] Lymphocytes Absolute Auto 1.6 1.2 - 4.9 X10*3/uL [facility] Monocytes Absolute Auto 0.5 0.1 - 1.2 X10*3/uL [facility] Eosinophils Absolute Auto 0.2 0.0 - 0.4 X10*3/uL [facility] Basophils Absolute Auto 0.0 0.0 - 0.2 X10*3/uL [facility] NRBC Abs Auto 0.000 0.0 - 0.012 X10*3/uL [facility] Blood Venous blood specimen / Unknown 12/24/2024 11:54 AM EDT 12/24/2024 1:12 PM EDT Sylvia Sheriff MD LAB BLOOD ORDERABLES Final Resul t Performing Organization Address City/[facility] Co de Phone Number [facility] [address] [place] [phone] * (ABNORMAL) PTH, Intact Without Calcium (12/24/2024 11:54 AM EDT) Parathyroid Hormone, Intact 234.4(H) 8.7 - 77.1 pg/mL [facility] Blood Venous blood specimen / Unknown 12/24/2024 11:54 AM EDT 12/24/2024 1:12 PM EDT Sylvia Sheriff MD LAB BLOOD ORDERABLES Final Resul t Performing Organization Address City/[facility] Co de Phone Number [facility] [address] [place] [phone] * Hemoglobin A1c (12/24/2024 11:54 AM EDT) Hemoglobin A1c 5.9 <6.0 % [facility] Comment:Hemoglobin A1C Refer ence Range Adults: 4.8 - 6.0 % Non diabetic: < 6.0 % Goal: < 7.0 %Additional Action Suggested: > 8.0 %Note: Hemoglobin A1c results are invalid for patients with abnormal amounts of HbF. Blood transfusions may impact the HbA1c concentration in the patient sample. Estimated Average Glucose 123 mg/dL [facility] Comment:eAG = Estimated ave rage glucose which is %A1C expressed asaverage glucose, using the formula of the X8A-IeojvlhUezhrqy Glucose study (ADAG), Diabetes Care, Vol.31,#8,Sep. 2007 Blood Venous blood specimen / Unknown 12/24/2024 11:54 AM EDT 12/24/2024 1:12 PM EDT us Sylvia Sheriff MD LAB BLOOD ORDERABLES Final Resul t [facility] [address] [place] [phone] * (ABNORMAL) POCT glycosylated hemoglobin (Hgb A1c) (12/24/2024 11:13 AM EDT) Hemoglobin A1C 6.1(A) 4.0 - 5.7 % [employer] Media Lot # [id number] Lot# Expiration Date Blood Capillary blood specimen / Unknown 12/24/2024 11:13 AM EDT us Sylvia Sheriff MD POINT OF CARE TEST ENTER/EDIT OR DERABLES Final Result * POCT glucose manually resulted (12/24/2024 11:10 AM EDT) Glucose Blood, POC 112 60 - 200 mg/dL QC Media Lot # [id number] Lot# Expiration Date Blood Capillary blood specimen / Unknown 12/24/2024 11:10 AM EDT us Sylvia Sheriff MD POINT OF CARE TEST ENTER/EDIT OR DERABLES Final Result * POCT , urine manually resulted (11/23/2024 2:07 PM EDT) [facility] Preg Test, Ur Negative Negative, Indeterminate, None Detected, Invalid, Specimen unsatisfactory for evaluation, Weakly Positive, 2+ Urine 11/23/2024 2:07 PM EDT Amaris Jenkins MD POINT OF CARE TEST ENTER /EDIT ORDERABLES Final Result * Influenza A (ID NOW Rapid Molecular) (11/23/2024 1:30 PM EDT) [facility] Influenza A Negative Negative, Indeterminate [facility] Swab 11/23/2024 1:30 PM EDT Amaris Jenkins MD POINT OF CARE TEST ENTER /EDIT ORDERABLES Final Result Performing Organization Address City/[facility]/ZIP Co de Phone Number [facility] [address] [place] [phone] * Influenza B (ID NOW Rapid Molecular) (11/23/2024 1:29 PM EDT) [facility] Influenza B Negative Negative, Indeterminate [facility] Swab 11/23/2024 1:29 PM EDT Result [facility] Amaris Jenkins MD POINT OF CARE TEST ENTER /EDIT ORDERABLES Final Result Performing Organization Address City/[facility]/ZIP Co de Phone Number [facility] [address] [place] [phone] * POCT Rapid COVID Ag (11/23/2024 1:29 PM EDT) [facility] Rapid COVID Ag Negative Swab 11/23/2024 1:29 PM EDT Result [facility] Amaris Jenkins MD POINT OF CARE TEST ENTER /EDIT ORDERABLES Final Result * Albumin, Random Urine W/Creatinine (02/13/2024 10:30 AM EST) Creatinine, Urine 486.05 mg/dL [facility] Microalbumin Urine 141.0 mg/L [facility] Microalbum Creatinine Ratio Ur 29.0 <30 ug/mg cr [facility] Comment:Albumin/Creatinine R atio Reference Ranges: Normal: < 30 ug/mg creatinine Microalbuminuria: 30 - 300 ug/mg creatinineClinical Albuminuria: > 300 ug/mg creatinine Urine 02/13/2024 10:3 0 AM EST 02/13/2024 1:16 PM EST us Sylvia Sheriff MD LAB URINE ORDERABLES Final Resul t Performing Organization Address City/[facility] Co de Phone Number [facility] [address] [place] [phone] [phone] * Hm Pap Smear (04/20/2021) Only the most recent of2 resultswithin the time period is included. Historical Provider HEALTH MAINTENANCE Final Result * HEPATITIS C AB W/REFL TO HCV RNA, QN, PCR (02/20/2021 10:51 AM EST) HEPATITIS C ANTIBODY NON-REACT [facility] NON-REACT [facility] INDEX 0.04 <1.00 [facility] Comment: HCV antibody was non-reactive. There is no laboratory evidence of HCV infection. In most cases, no further action is required. However, if recent HCV exposure is suspected, a test for HCV RNA (test code 54160) is suggested. For additional information please refer to http://education.BringShare.markedup/faq/FHR38n2 (This link is being provided for informational/ educational purposes only.) 02/20/2021 10:5 1 AM EST us Clementina Faria MD HISTORICAL/NON ORDERABLE LAB S Final Result Performing Organization Address City/[facility]/ZIP Co de Phone Number [facility] [place] [address], [place] from Last 3 Months or Most Recently Relevant to Health Maintenance Insurance [facility] C3 Care Teams Supervisor Asbestos Removal Relationship Specialty Start Date End Date Sylvia Sheriff MD [address] [place] [address] PCP - General Family Medicine 01/26/22 Yasmeen Tomas Community Health Worker 08/12/23 Justus Rainey Technology Risk InternMission Commander 01/08/24
--- OUTSIDE RECORDS SUMMARY | 2024-12-24 14:51 | XMS_ITS | Encounter Summary ---
Author Organization [employer] Address [address] [facility] 7t [place] [address] Care Team Providers Care Ceramics Artist Name Role Phone Sylvia Sheriff MD Primary Care Provider [phone] Yasmeen Tomas Unavailable Radha Tomas RN Unavailable [phone] Serenity Bronson RN Unavailable [phone] Encounter Details Date Type Department Care Team (Late st Contact Info) Description 10/09/2023 Orders Only [facility] [address] [place], [place] [phone] Sylvia Sheriff MD [address] [place], [place] [phone] Fibromyalgia Social History Tobacco Use Types Packs/Day [...] documented as of this encounter Care Teams Ceramics Artist Relationship Specialty Start Date End Date Sylvia Sheriff MD [address] [place] [address] PCP - General Family Medicine 01/26/22 Yasmeen Tomas Community Health Worker 08/12/23 Radha Tomas RN [address] [place] [address] Sock Knitter 10/07/23 11/10/23 Serenity Bronson, EHSAN Registered Nurse Internal Medicine 10/12/24 10/13/[address] RegistrarPalliative Senior Np 01/08/24 documented as of this encounter
--- OUTSIDE RECORDS SUMMARY | 2024-12-24 14:51 | XMS_ITS | Encounter Summary ---
Author Organization [employer] Address [address] [place] [address] 7t [place] [address] Care Team Providers Care Minesweeping Officer Name Role Phone Sylvia Sheriff MD Primary Care Provider [phone] Yasmeen Tomas Unavailable Radha Tomas RN Unavailable [phone] Serenity Bronson RN Unavailable [phone] Encounter Details Date Type Department Care Team (Late st Contact Info) Description 07/30/2022 Orders Only [facility] MED[facility]INE [address] [place] [address] Sylvia Sheriff MD [address] [place], [place] [phone] Depression, unspecified depression type (Primary Dx) Social History Tobacco Use [...] as of this encounter Visit Diagnoses Diagnosis Depression, unspecified depression type- Primary documented in this encounter Additional Health Concerns Assessment Noted Time PHQ-9 Depression Total Score: 6 03/08/19 23 9:55 AM EST documented as of this encounter Care Teams Minesweeping Officer Relationship Specialty Start Date End Date Sylvia Sheriff MD [address] [place] [address] PCP - General Family Medicine 01/26/22 Yasmeen Tomas Community Health Worker 08/12/23 Radha Tomas, EHSAN [address] [place] [phone] Adaptive Physical Education Teacher 10/07/23 11/10/23 Serenity Bronson, RN Registered Nurse Internal Medicine 10/12/24 10/13/24 Justus Rainey Supplier Development ManagerManager Fitness 01/08/24 documented as of this encounter
--- OUTSIDE RECORDS SUMMARY | 2024-12-24 14:51 | XMS_ITS | Encounter Summary ---
Author Organization [facility] Address [address] [place] [address] Care Team Providers Care B2B Sales Representative Name Role Phone Unavailable Primary Care Provider Unavailabl e Reason for Visit * Reason Comments Medication Refill Encounter Details Date Type Department Care Team (Late st Contact Info) Description 01/30/2022 Refill [facility] INTER[facility] MEDICINE [address] [place] [address] Hemanth Barnhart MD [address] [place] [address] Medication Refill Social History Tobacco [...]
--- OUTSIDE RECORDS SUMMARY | 2024-12-24 14:51 | XMS_ITS | Encounter Summary ---
Author Organization [facility] Address [address] [place] [address] Care Team Providers Care Survey Instrument Operator Name Role Phone Hemanth Barnhart MD Primary Care Provider + Reason for Visit * Reason Comments Medication Refill Encounter Details Date Type Department Care Team (Late st Contact Info) Description 09/18/2021 Refill [facility] INTERNAL MEDICINE [address] [place], [place] [phone] Serena Daniels MD [address] [place] [address] Medication Refill Social History Tobacco Use Types [...] documented as of this encounter Care Teams Survey Instrument Operator Relationship Specialty Start Date End Date Hemanth Barnhart MD [address] [place] [address] PCP - General Internal Medicine 08/20/15 11/01/21 documented as of this encounter
--- OUTSIDE RECORDS SUMMARY | 2024-12-24 14:51 | XMS_ITS | Encounter Summary ---
Author Organization [facility] Address [address] [place] [address] Care Team Providers Care Visitor Services Coordinator Name Role Phone Unavailable Primary Care Provider Unavailabl e Reason for Visit * Reason Comments Medication Refill Encounter Details Date Type Department Care Team (Late st Contact Info) Description 01/23/[address] [address] Hemanth Barnhart MD [address] [place] [address] Medication Refill Social History Tobacco [...] encounter Miscellaneous Notes * Telephone Encounter - Mimi Chow LPN - 01/23/2022 8:57 AM EST Pt to contact pharmacy directly for refill. CCM: 2 minutes 01/23/2022 Mimi Chow LPN * Telephone Encounter - Margot Mane - 01/23/2022 8:43 AM EST Pt calling in seeking a med refill on pregabalin (LYRICA) 75 mg capsule. Pt states she was advised she would have to go through previous pcp in order to get meds until she meets her new pcp. Pt utilizes [facility] pharmacy on [address] [place], [place]. Pt contact:[phone] documented in this encounter Plan of Treatment Not on file documented as of this encounter Visit Diagnoses Not on filedocumented in this encounter Additional Health Concerns Assessment Noted Time PHQ-9 Depression Total Score: 0 06/17/19 21 10:00 AM EDT documented as of this encounter
--- OUTSIDE RECORDS SUMMARY | 2024-12-24 14:51 | XMS_ITS | Encounter Summary ---
Author Organization [facility] Address [address] [place] [address] Care Team Providers Care Picture Frame Maker Name Role Phone Hemanth Barnhart MD Primary Care Provider + Reason for Visit * Reason Comments Medication Refill Encounter Details Date Type Department Care Team (Late st Contact Info) Description 09/05/2021 Refill [facility] INTERNAL MEDICINE [address] [place] [address] Hemanth Barnhart MD [address] [place] [address] Medication Refill Social History Tobacco [...] documented as of this encounter Care Teams Picture Frame Maker Relationship Specialty Start Date End Date Hemanth Barnhart MD [address] [place] [address] PCP - General Internal Medicine 08/20/15 11/01/21 documented as of this encounter
--- OUTSIDE RECORDS SUMMARY | 2024-12-24 14:51 | XMS_ITS | Encounter Summary ---
Author Organization [facility] Address [address] [place] [address] Care Team Providers Care It Analyst Name Role Phone Unavailable Primary Care Provider Unavailabl e Reason for Visit * Reason Comments Medication Refill Encounter Details Date Type Department Care Team (Late st Contact Info) Description 11/07/2021 Refill [facility] INTERNAL MEDICINE [address] [place] [address] Hemanth Barnhart MD [address] [place] [address] Medication Refill Social History Tobacco [...]
--- OUTSIDE RECORDS SUMMARY | 2024-12-24 14:51 | XMS_ITS | Encounter Summary ---
Author Organization [facility] Address [address] [place] [address] Care Team Providers Care Environmental Services Assistant Name Role Phone Unavailable Primary Care Provider Unavailabl e Reason for Visit * Reason Comments Medication Refill Encounter Details Date Type Department Care Team (Late st Contact Info) Description 11/07/2021 Refill [facility] INTERNAL MEDICINE [address] [place], [place] [phone] Stella Gomez MD MPH [address] [place] [address] Medication Refill Social History Tobacco [...]
--- OUTSIDE RECORDS SUMMARY | 2024-12-24 14:51 | XMS_ITS | Encounter Summary ---
Author Organization [employer] Address [address] [facility] 7t [place] [address] Care Team Providers Care Collision Technician Name Role Phone Sylvia Sheriff MD Primary Care Provider [phone] Yasmeen Tomas Unavailable Radha Tomas RN Unavailable [phone] Serenity Bronson RN Unavailable [phone] Reason for Visit * Reason Onset Date Comments Medication Question 10/09/2023 Encounter Details Date Type Department Care Team ([facility] st Contact Info) Description 10/09/2023 Telephone [facility] MEDICINE [address] [place], [place] [phone] Sylvia Sheriff MD [address] [place], [place] [phone] Medication Question Social History Tobacco Use Types Packs/Day Years [...] the past 12 months, has t he [employer], [employer], oil or water [employer] threatened to shut off services in your [...] encounter Miscellaneous Notes * Telephone Encounter - Karyna Barr RN - 10/09/2023 11:18 AM EDT TC placed to the [facility] pharmacy who states that the pt can have the prescribed Lyrica 75 mg prescription filled through them and delivered this afternoon. The only thing that is needed is a new prescription from PCP sent to the [facility] pharmacy. Request will be sent to PCP for new prescription of Lyrica.[facility] pharmacy will call the pt to inform * Telephone Encounter - Jose Jacobs - 10/09/2023 10:37 AM EDT Tc from pt calling in regards to the pregabalin (Lyrica) 75 MG capsule. Pt stated script was supposed to be filled today but pt was informed by [facility] pharmacy that they no longer have medication in stock. Pt stated [facility] pharmacy is delivering her medication tomorrow so she is requesting for lyrica to be sent for is to be delivered along with her other medication. If any questions you can contact pt at [phone]. documented in this encounter Plan of Treatment Not on file documented as of this encounter Visit Diagnoses Not on filedocumented in this encounter Additional Health Concerns Assessment Noted Time PHQ-9 Depression Total Score: 17 023 10:03 AM EST documented as of this encounter Care Teams Collision Technician Relationship Specialty Start Date End Date Sylvia Sheriff MD [address] [place] [address] PCP - General Family Medicine 01/26/22 Yasmeen Tomas Community Health Worker 08/12/23 Radha Tomas, EHSAN [address] [place] [address] Teller 10/07/23 11/10/23 Serenity Bronson, RN Registered Nurse Internal Medicine 10/12/24 10/13/24 Justus Rainey Mail SorterCredit Union Examiner 01/08/24 documented as of this encounter
--- OUTSIDE RECORDS SUMMARY | 2024-12-24 14:51 | XMS_ITS | Encounter Summary ---
Author Organization [employer] Address [address] [place] [address] 7t [place] [address] Care Team Providers Care Microphone Operator Name Role Phone Sylvia Sheriff MD Primary Care Provider [phone] Yasmeen Tomas Unavailable Radha Tomas RN Unavailable [phone] Serenity Bronson RN Unavailable Reason for Visit * Reason Onset Date Comments Med Refill 10/22/2022 Encounter Details Date Type Department Care Team (Late st Contact Info) Description 10/22/2022 Telephone [facility] [address] [place], [place] [phone] Sylvia Sheriff MD [address] [place], [place] [phone] Med Refill Social History Tobacco Use Types [...] encounter Miscellaneous Notes * Telephone Encounter - Rafael Coughlinn - 10/22/2022 2:50 PM EDT Tc from pt requesting status on Lyrica pt was inform medication was pending, pt stated she will be traveling to [place] tomorrow and needs medication for today. Any question please contact pt at [phone] * Telephone Encounter - Rachna Bautista LPN - 10/22/2022 12:34 PM EDT Medication pended to PCP. * Telephone Encounter - Kasandra Cole - 10/22/2022 12:00 PM EDT Tc from pt requesting med refill for medication pregabalin (Lyrica) 75 MG capsule. Pt informs is leaving on vacation 10/23/22 for about 2 weeks . documented in this encounter Plan of Treatment Not on file documented as of this encounter Visit Diagnoses Not on filedocumented in this encounter Additional Health Concerns Assessment Noted Time PHQ-9 Depression Total Score: 6 03/08/19 23 9:55 AM EST documented as of this encounter Care Teams Microphone Operator Relationship Specialty Start Date End Date Sylvia Sheriff MD [address] [place] [address] PCP - General Family Medicine 01/26/22 Yasmeen Tomas Community Health Worker 08/12/23 Radha Tomas RN [address] [place] [address] Interpersonal Communications Professor 10/07/23 11/10/23 Serenity Bronson RN Registered Nurse Internal Medicine 10/12/24 10/13/24 Justus Rainey Momd TeacherGeneral Maintenance Mechanic 01/08/24 documented as of this encounter
--- OUTSIDE RECORDS SUMMARY | 2024-12-24 14:51 | XMS_ITS | Encounter Summary ---
Author Organization [employer] Address [address] [place] [address] 7 [place] [address] Care Team Providers Care Soybean Specialties Cook Name Role Phone Sylvia Sheriff MD Primary Care Provider [phone] Yasmeen Tomas Unavailable Radha Tomas RN Unavailable Serenity Bronson RN Unavailable [phone] Encounter Details Date Type Department Care Team (Late st Contact Info) Description [facility]/2022 [facility] [address] [place], [place] [phone] Sylvia Sheriff MD [address] [place], [place] [phone] Social History Tobacco Use Types Packs/Day Years [...] documented as of this encounter Care Teams Soybean Specialties Cook Relationship Specialty Start Date End Date Sylvia Sheriff MD [address] [place] [address] PCP - General Family Medicine 01/26/22 Yasmeen Tomas Community Health Worker 08/12/23 Radha Tomas, RN [address] [place] [address] Plant Security Guard 10/07/23 11/10/23 Serenity Bronson, RN Registered Nurse Internal Medicine 10/12/24 10/13/24 Justus Rainey Clerical AdjusterCar Sales Representative 01/08/24 documented as of this encounter
--- OUTSIDE RECORDS SUMMARY | 2024-12-24 14:51 | XMS_ITS | Encounter Summary ---
Author Organization [employer] Address [address] [facility] 7t [place] [address] Care Team Providers Care Contract Processor Name Role Phone Sylvia Sheriff MD Primary Care Provider [phone] Yasmeen Tomas Unavailable Radha Tomas RN Unavailable [phone] Serenity Bronson RN Unavailable [phone] Encounter Details Date Type Department Care Team (Late st Contact Info) Description 03/08/2022 Abstract [facility] MEDICINE [address] [place], [place] [phone] Sylvia Sheriff MD [address] [place], [place] [phone] Social History Tobacco Use Types Packs/Day Years [...] Orientation Straight 12/25/2021 10 :39 AM EDT COVID-19 Exposure Response Date Recorded In the last 10 days, have yo u been in contact with someone who was confirmed or suspected to have Coronavirus/COVID-19? No / Unsure 03/08/2022 9:22 AM EST documented as of this encounter Functional Status * Over the past 2 weeks, how often have you been bothered by any of the following problems? Question Answer Date of Assessment Author Patient Health Questionnaire -2 Score 2 03/08/2022 9:55 AM Monica Goode MA * Over the past 2 weeks, how often have you been bothered by any of the following problems? Question Answer Date of Assessment Author Little interest or pleasure in doing things Several days 03/08/2022 9:55 AM Monica Goode [place] Feeling down, depressed, or hopeless Several days 03/08/2022 9:55 AM Monica Goode [place] Trouble falling or staying asleep, or sleeping too much Several days 03/08/2022 9:55 AM Adela Goode [place] Feeling tired or having little energy Several days 03/08/2022 9:55 AM Monica Goode [place] Poor appetite or overeating Several days 03/08/2022 9: 55 AM Adela Goode [place] Feeling bad about yourself - or that you are a failure or have let yourself or your family down Not at all 03/08/2022 9:55 AM Monica Goode [place] Trouble concentrating on things, such as reading the newspaper or watching television Several days 03/08/2022 9:55 AM Monica Goode MA Moving or speaking so slowly that other people could have noticed? Or the opposite - being so fidgety or restless that you have been moving around a lot more than usual. Not at all 03/08/2022 9:55 AM Monica Goode MA Thoughts that you would be better off or hurting yourself in some way Not at all 03/08/2022 9:55 AM Lissa Goode MA Patient Health Questionnaire-9 Score 6 03/08/2022 9:55 AM Renate Goode MA documented as of this encounter Plan of Treatment Not on file documented as of this encounter Visit Diagnoses Not on filedocumented in this encounter Additional Health Concerns Assessment Noted Time PHQ-9 Depression Total Score: 6 03/08/19 23 9:55 AM EST documented as of this encounter Care Teams Contract Processor Relationship Specialty Start Date End Date Sylvia Sheriff MD [address] [place] [address] PCP - General Family Medicine 01/26/22 Yasmeen Tomas Community Health Worker 08/12/23 Radha Tomas, RN [address] [place] [address] Band Saw Operator 10/07/23 11/10/23 Serenity Bronson, RN Registered Nurse Internal Medicine 10/12/24 10/13/24 Justus Rainey Devulcanizer OperatorMachine Taper 01/08/24 documented as of this encounter
--- OUTSIDE RECORDS SUMMARY | 2024-12-24 14:51 | XMS_ITS | Encounter Summary ---
Author Organization [employer] Address [address] [place] [address] 7t [place] [address] Care Team Providers Care Film Or Tape Librarian Name Role Phone Sylvia Sheriff MD Primary Care Provider [phone] Yasmeen Tomas Unavailable Radha Tomas RN Unavailable [phone] Serenity Bronson RN Unavailable [phone] Reason for Visit * Reason Comments Med Refill Encounter Details Date Type Department Care Team (Late st Contact Info) Description 06/30/2022 Refill [facility] [address] [place] [address] Chino Sousa FNP Social History Tobacco Use Types Packs/Day Years [...] documented as of this encounter Care Teams Film Or Tape Librarian Relationship Specialty Start Date End Date Sylvia Sheriff MD [address] [place] [address] PCP - General Family Medicine 01/26/22 Yasmeen Tomas Community Health Worker 08/12/23 Radha Tomas, RN [address] [place] [address] Silverware Cleaner 10/07/23 11/10/23 Serenity Bronson, RN Registered Nurse Internal Medicine 10/12/24 10/13/24 Justus Rainey Ground Operations Crew MemberBrim Shaper 01/08/24 documented as of this encounter
--- OUTSIDE RECORDS SUMMARY | 2024-12-24 14:52 | XMS_ITS | Encounter Summary ---
Author Organization [employer] Address [address] [facility] 7t [place] [address] Care Team Providers Care Fire Loss Prevention Engineer Name Role Phone Sylvia Sheriff MD Primary Care Provider [phone] Yamseen Tomas Unavailable Radha Tomas RN Unavailable [phone] Serenity Bronson RN Unavailable [phone] Reason for Visit * Reason Comments Med Refill Encounter Details Date Type Department Care Team (Late st Contact Info) Description 09/11/2023 Refill [facility] MEDICINE [address] [place], [place] [phone] Sylvia Sheriff MD [address] [place], [place] [phone] Fibromyalgia Social History Tobacco Use Types Packs/Day [...] documented as of this encounter Care Teams Fire Loss Prevention Engineer Relationship Specialty Start Date End Date Sylvia Sheriff MD [address] [place] [address] PCP - General Family Medicine 01/26/22 Yasmeen Tomas Community Health Worker 08/12/23 Radha Tomas RN [address] [place] [address] Barrel Raiser 10/07/23 11/10/23 Serenity Bronson RN Registered Nurse Internal Medicine 10/12/24 10/13/24 Justus Rainey Rheumatology NurseDeputy Chief Counsel 01/08/24 documented as of this encounter
--- OUTSIDE RECORDS SUMMARY | 2024-12-24 14:52 | XMS_ITS | Encounter Summary ---
Author Organization [facility] Address [address] [place] [address] Care Team Providers Care Sort Operations Supervisor Name Role Phone Hemanth Barnhart MD Primary Care Provider + Reason for Visit * Reason Comments Medication Refill FYI Encounter Details Date Type Department Care Team (Late st Contact Info) Description 12/19/[address] [address] Hemanth Barnhart MD [address] [place] [address] Medication Refill; FYI Social History Tobacco Use Types Packs/Day Years [...] Orientation Straight 03/08/2020 2: 01 PM EST COVID-19 Exposure Response Date Recorded In the last month, have you been in contact with someone who was confirmed or suspected to have Coronavirus / COVID-19? No / Unsure 12/20/2020 10:13 AM EDT documented as of this encounter Miscellaneous Notes * Telephone Encounter - Liliana García - 12/19/2020 3:51 PM EDT Patient has moved out of the state to [facility]. And is requesting a refill on pregabalin (LYRICA) 75 mgcapsule, pantoprazole (PROTONIX) 40 mg tablet,metFORMIN (GLUCOPHAGE) 500 mg Immediate Release tablet and amitriptyline (ELAVIL) 25 mg tablet until she can be established with her primary care provider in [facility]. Patient stated her appointment is not until February 20. Patient is requesting a phone call from the provider to discuss. Call back number [phone] documented in this encounter Plan of Treatment Not on file documented as of this encounter Visit Diagnoses Not on filedocumented in this encounter Additional Health Concerns Assessment Noted Time PHQ-9 Depression Total Score: 0 06/17/19 21 10:00 AM EDT documented as of this encounter Care Teams Sort Operations Supervisor Relationship Specialty Start Date End Date Hemanth Barnhart MD [address] [place] [address] PCP - General Internal Medicine 08/20/15 11/01/21 documented as of this encounter
--- OUTSIDE RECORDS SUMMARY | 2024-12-24 14:52 | XMS_ITS | Encounter Summary ---
Author Organization [facility] Address [address] [place] [address] Care Team Providers Care Electrician Rectifier Maintenance Name Role Phone Hemanth Barnhart MD Primary Care Provider + Reason for Visit * Reason Comments Medication Refill Encounter Details Date Type Department Care Team (Late st Contact Info) Description 05/30/2021 Refill [facility] INTERNAL MEDICINE [address] [place] [address] Hemanth Barnhart MD [address] [place] [address] Medication Refill Social History Tobacco [...] documented as of this encounter Care Teams Electrician Rectifier Maintenance Relationship Specialty Start Date End Date Hemanth Barnhart MD [address] [place] [address] PCP - General Internal Medicine 08/20/15 11/01/21 documented as of this encounter
--- OUTSIDE RECORDS SUMMARY | 2024-12-24 14:52 | XMS_ITS | Encounter Summary ---
Author Organization [facility] Address [address] [place] [address] Care Team Providers Care Woodworking Machine Feeder Name Role Phone Hemanth Barnhart MD Primary Care Provider + Reason for Visit * Reason Comments Medication Refill Encounter Details Date Type Department Care Team (Late st Contact Info) Description 03/04/2021 Refill [facility] INTERNAL MEDICINE [address] [place] [address] Hemanth Barnhart MD [address] [place] [address] Medication Refill Social History Tobacco [...] documented as of this encounter Care Teams Woodworking Machine Feeder Relationship Specialty Start Date End Date Hemanth Barnhart MD [address] [place] [address] PCP - General Internal Medicine 08/20/15 11/01/21 documented as of this encounter
--- OUTSIDE RECORDS SUMMARY | 2024-12-24 14:52 | XMS_ITS | Encounter Summary ---
Author Organization [employer] Address [address] [facility] 7t [place] [address] Care Team Providers Care Groundskeeper Porter Name Role Phone Sylvia Sheriff MD Primary Care Provider [phone] Yasmeen Tomas Unavailable Radha Tomas RN Unavailable [phone] Serenity Bronson RN Unavailable [phone] Reason for Visit * Reason Comments Med Refill Encounter Details Date Type Department Care Team (Late st Contact Info) Description 05/03/2023 Refill [facility] MEDICINE [address] [place] [address] Sidra Lala, PRISON CLASSIFICATION COUNSELOR Fibromyalgia Social History Tobacco Use Types Packs/Day [...] documented as of this encounter Care Teams Groundskeeper Porter Relationship Specialty Start Date End Date Sylvia Sheriff MD [address] [place] [address] PCP - General Family Medicine 01/26/22 Yasmeen Tomas Community Health Worker 08/12/23 Radha Tomas, RN [address] [place] [address] Plastic Machine Operator 10/07/23 11/10/23 Serenity Bronson, RN Registered Nurse Internal Medicine 10/12/24 10/13/24 Justus Rainey Production Pattern MakerWet Room Worker 01/08/24 documented as of this encounter
--- OUTSIDE RECORDS SUMMARY | 2024-12-24 14:52 | XMS_ITS | Encounter Summary ---
Author Organization [facility] Address [address] [place] [address] Care Team Providers Care Seasoner Name Role Phone Hemanth Barnhart MD Primary Care Provider + Reason for Visit * Reason Comments Medication Refill Encounter Details Date Type Department Care Team (Late st Contact Info) Description 07/11/2021 Refill [facility] INTERNAL MEDICINE [address] [place] [address] Hemanth Barnhart MD [address] [place] [address] Medication Refill Social History Tobacco [...] documented as of this encounter Care Teams Seasoner Relationship Specialty Start Date End Date Hemanth Barnhart MD [address] [place] [address] PCP - General Internal Medicine 08/20/15 11/01/21 documented as of this encounter
--- OUTSIDE RECORDS SUMMARY | 2024-12-24 14:52 | XMS_ITS | Encounter Summary ---
Author Organization [facility] Address [address] [place] [address] Care Team Providers Care Title Curator Name Role Phone Hemanth Barnhart MD Primary Care Provider + Reason for Visit * Reason Comments Medication Refill Encounter Details Date Type Department Care Team (Late st Contact Info) Description 06/04/2021 Refill [facility] INTERNAL MEDICINE [address] [place] [address] Hemanth Barnhart MD [address] [place] [address] Medication Refill Social History Tobacco [...] documented as of this encounter Care Teams Title Curator Relationship Specialty Start Date End Date Hemanth Barnhart MD [address] [place] [address] PCP - General Internal Medicine 08/20/15 11/01/21 documented as of this encounter
--- OUTSIDE RECORDS SUMMARY | 2024-12-24 14:52 | XMS_ITS | Encounter Summary ---
Author Organization [employer] Address [address] [facility] 7t [place] [address] Care Team Providers Care Indian Trader Name Role Phone Sylvia Sheriff MD Primary Care Provider [phone] Yasmeen Tomas Unavailable Radha Tomas RN Unavailable [phone] Serenity Bronson RN Unavailable [phone] Reason for Visit * Reason Onset Date Comments Med Refill 05/15/2023 Encounter Details Date Type Department Care Team ([facility] st Contact Info) Description 05/15/2023 Telephone [facility] MEDICINE [address] [place], [place] [phone] Sylvia Sheriff MD [address] [place], [place] [phone] Med Refill Social History Tobacco Use Types [...] encounter Miscellaneous Notes * Telephone Encounter - Rachna Bautista LPN - 05/15/2023 10:31 AM EDT AREA MECHANIC checked 05/15/23 20 day supply last dispensed on 05/03/23 to soon for refill. * Telephone Encounter - Myranda Yañez - 05/15/2023 10:25 AM EDT TC from pt requesting medication refill. Medications needing refill : pregabalin (Lyrica) 75 MG capsule To be sent to: [facility]/pharmacy #[id number] - [place], [place] - [address] [facility] documented in this encounter Plan of Treatment Not on file documented as of this encounter Visit Diagnoses Diagnosis Fibromyalgia Unspecified myalgia and myositis documented in this encounter Additional Health Concerns Assessment Noted Time PHQ-9 Depression Total Score: 17 023 10:03 AM EST documented as of this encounter Care Teams Indian Trader Relationship Specialty Start Date End Date Sylvia Sheriff MD [address] [place] [address] [place] [address] PCP - General Family Medicine 01/26/22 Yasmeen Tomas Community Health Worker 08/12/23 Radha Tomas, RN [address] [place] [address] Rrts 10/07/23 11/10/23 Serenity Bronson, RN Registered Nurse Internal Medicine 10/12/24 10/13/24 Justus Rainey Small Brake Form OperatorTension Worker 01/08/24 documented as of this encounter
--- OUTSIDE RECORDS SUMMARY | 2024-12-24 14:52 | XMS_ITS | Encounter Summary ---
Author Organization [employer] Address [address] [facility] 7t [place] [address] Care Team Providers Care Dairy And Food Laboratory Assistant Name Role Phone Sylvia Sheriff MD Primary Care Provider [phone] Yasmeen Tomas Unavailable Radha Tomas RN Unavailable [phone] Serenity Bronson RN Unavailable [phone] Reason for Visit * Reason Onset Date Comments Returning Call 07/12/2023 Encounter Details Date Type Department Care Team ([facility] st Contact Info) Description 07/12/2023 Telephone [facility] MEDICINE [address] [place], [place] [phone] Sylvia Sheriff MD [address] [place], [place] [phone] Returning Call Social History Tobacco Use Types Packs/Day Years [...] * Telephone Encounter - Jose Jacobs - 07/12/2023 11:36 AM EDT Tc from pt requesting call back stating pcp attempted to reach out regarding some concerns and would like to know what they were. Pt also stated she will be holding off on appts at the moment due to having no transportation. Please contact pt at [phone].. documented in this encounter Plan of Treatment Not on file documented as of this encounter Visit Diagnoses Not on filedocumented in this encounter Additional Health Concerns Assessment Noted Time PHQ-9 Depression Total Score: 17 023 10:03 AM EST documented as of this encounter Care Teams Dairy And Food Laboratory Assistant Relationship Specialty Start Date End Date Sylvia Sheriff MD [address] [place] [address] PCP - General Family Medicine 01/26/22 Yasmeen Tomas Community Health Worker 08/12/23 Radha Tomas RN [address] [place] [address] Billiard Table Assembler 10/07/23 11/10/23 Serenity Bronson, RN Registered Nurse Internal Medicine 10/12/24 10/13/24 Justus Rainey Radio Tower TechnicianSheriff'S Detective 01/08/24 documented as of this encounter
--- OUTSIDE RECORDS SUMMARY | 2024-12-24 14:52 | XMS_ITS | Encounter Summary ---
Author Organization [facility] Address [address] [place] [address] Care Team Providers Care Residential Carpet Installer Name Role Phone Hemanth Barnhart MD Primary Care Provider + Reason for Visit * Reason Comments Medication Refill Encounter Details Date Type Department Care Team (Late st Contact Info) Description 08/01/2021 Refill [facility] INTERNAL MEDICINE [address] [place] [address] Hemanth Barnhart MD [address] [place] [address] Medication Refill Social History Tobacco [...] documented as of this encounter Care Teams Residential Carpet Installer Relationship Specialty Start Date End Date Hemanth Barnhart MD [address] [place] [address] PCP - General Internal Medicine 08/20/15 11/01/21 documented as of this encounter
--- OUTSIDE RECORDS SUMMARY | 2024-12-24 14:52 | XMS_ITS | Encounter Summary ---
Author Organization [facility] Address [address] [place] [address] Care Team Providers Care Grocery Store Courtesy Clerk Name Role Phone Hemanth Barnhart MD Primary Care Provider + Reason for Visit * Reason Comments Medication Refill Encounter Details Date Type Department Care Team (Late st Contact Info) Description 06/23/2021 Refill [facility] INTERNAL MEDICINE [address] [place] [address] Hemanth Barnhart MD [address] [place] [address] Medication Refill Social History Tobacco [...] documented as of this encounter Care Teams Grocery Store Courtesy Clerk Relationship Specialty Start Date End Date Hemanth Barnhart MD [address] [place] [address] PCP - General Internal Medicine 08/20/15 11/01/21 documented as of this encounter
--- OUTSIDE RECORDS SUMMARY | 2024-12-24 14:52 | XMS_ITS | Encounter Summary ---
Author Organization [facility] Address [address] [place] [address] Care Team Providers Care Certified Executive Chef Name Role Phone Hemanth Barnhart MD Primary Care Provider + Reason for Visit * Reason Comments Medication Refill Encounter Details Date Type Department Care Team (Late st Contact Info) Description 09/05/2021 Refill [facility] INTERNAL MEDICINE [address] [place] [address] Hemanth Barnhart MD [address] [place] [address] Medication Refill Social History Tobacco [...] documented as of this encounter Care Teams Certified Executive Chef Relationship Specialty Start Date End Date Hemanth Barnhart MD [address] [place] [address] PCP - General Internal Medicine 08/20/15 11/01/21 documented as of this encounter
--- OUTSIDE RECORDS SUMMARY | 2024-12-24 14:52 | XMS_ITS | Encounter Summary ---
Author Organization [employer] Address [address] [facility] 7t [place] [address] Care Team Providers Care Quality Reviewer Name Role Phone Sylvia Sheriff MD Primary Care Provider [phone] Yasmeen Tomas Unavailable Radha Tomas RN Unavailable [phone] Serenity Bronson RN Unavailable [phone] Encounter Details Date Type Department Care Team (Late st Contact Info) Description 09/16/2023 Telephone [facility] MEDICINE [address] [place], [place] [phone] Sylvia Sheriff MD [address] [place], [place] [phone] Social History Tobacco Use Types Packs/Day Years [...] documented as of this encounter Care Teams Quality Reviewer Relationship Specialty Start Date End Date Sylvia Sheriff MD [address] [place] [address] PCP - General Family Medicine 01/26/22 Yasmeen Tomas Community Health Worker 08/12/23 Radha Tomas RN [address] [place] [address] Day Haul Youth Supervisor 10/07/23 11/10/23 Serenity Bronson, EHSAN Registered Nurse Internal Medicine 10/12/24 10/13/24 Justus Rainey Bundles HangerOutside Plant Technician 01/08/24 documented as of this encounter
--- OUTSIDE RECORDS SUMMARY | 2024-12-24 14:52 | XMS_ITS | Encounter Summary ---
Author Organization [employer] Address [address] [place] [address] 7 [place] [address] Care Team Providers Care Government Relations Director Name Role Phone Sylvia Sheriff MD Primary Care Provider [phone] Yasmeen Tomas Unavailable Radha Tomas RN Unavailable [phone] Serenity Bronson RN Unavailable [phone] Reason for Referral * Consultation (Routine) - Closed Specialty Diagnoses / Procedures Referred By Contac t Referred To Contact Sleep Medicine Diagnoses SUDHAKAR (obstructive sleep apnea) Sylvia Sheriff MD [address] [place] [address] Phone: tel: fax: Sleep Medicine Service [facility] [address] [facility], [address] [place] [address] Phone: tel: fax: Referral ID Status Reason Start Date Expiration Date V isits Requested Visits Authorized [id number] Closed Specialty Services Required 07/29/2023 07/28/2024 12 12 Encounter Details Date Type Department Care Team (Late st Contact Info) Description 07/26/2023 Orders Only [facility] MEDICINE [address] [place] [phone] Sylvia Sheriff MD [address] [place] [phone] SUDHAKAR (obstructive sleep apnea) (Primary Dx) Social History Tobacco Use Types [...] Associated Diagnoses Orde r Schedule Referral to Sleep Medicine Outpatient Referral Routine SUDHAKAR (obstructive sleep apnea) Expected: 07/26/2023 (Approximate), Expires: 07/25/2024 documented as of this encounter Visit Diagnoses Diagnosis SUDHAKAR (obstructive sleep apnea)- Primary Obstructive sleep apnea (adult) (pediatric) documented in this encounter Additional Health Concerns Assessment Noted Time PHQ-9 Depression Total Score: 17 023 10:03 AM EST documented as of this encounter Care Teams Government Relations Director Relationship Specialty Start Date End Date Sylvia Sheriff MD [address] [place] [address] PCP - General Family Medicine 01/26/22 Yasmeen Tomas Community Health Worker 08/12/23 Radha Tomas, EHSAN [address] [place] [address] Chimney Sweeper 10/07/23 11/10/23 Serenity Bronson, RN Registered Nurse Internal Medicine 10/12/24 10/13/24 Justus Rainey Wildlife Ecology ProfessorTransportation Officer 01/08/24 documented as of this encounter
--- OUTSIDE RECORDS SUMMARY | 2024-12-24 14:52 | XMS_ITS | Encounter Summary ---
Author Organization [facility] Address [address] [place] [address] Care Team Providers Care School Business Manager Name Role Phone Hemanth Barnhart MD Primary Care Provider + Reason for Visit * Reason Comments Medication Refill Encounter Details Date Type Department Care Team (Late st Contact Info) Description 03/31/2021 Refill [facility] INTERNAL MEDICINE [address] [place] [address] Hemanth Barnhart MD [address] [place] [address] Medication Refill Social History Tobacco [...] documented as of this encounter Care Teams School Business Manager Relationship Specialty Start Date End Date Hemanth Barnhart MD [address] [place] [address] PCP - General Internal Medicine 08/20/15 11/01/21 documented as of this encounter
--- OUTSIDE RECORDS SUMMARY | 2024-12-24 14:52 | XMS_ITS | Encounter Summary ---
Author Organization [facility] Address [address] [place] [address] Care Team Providers Care Liaison Inspection Laboratory Assistant Name Role Phone Hemanth Barnhart MD Primary Care Provider + Reason for Visit * Reason Comments Medication Refill Encounter Details Date Type Department Care Team (Late st Contact Info) Description 04/13/2021 Refill [facility] INTERNAL MEDICINE [address] [place] [address] Hemanth Barnhart MD [address] [place] [address] Medication Refill Social History Tobacco [...] documented as of this encounter Care Teams Liaison Inspection Laboratory Assistant Relationship Specialty Start Date End Date Hemanth Barnhart MD [address] [place] [address] PCP - General Internal Medicine 08/20/15 11/01/21 documented as of this encounter
--- OUTSIDE RECORDS SUMMARY | 2024-12-24 14:52 | XMS_ITS | Encounter Summary ---
Author Organization [facility] Address [address] [place] [address] Care Team Providers Care Machining And Assembly Supervisor Name Role Phone Hemanth Barnhart MD Primary Care Provider + Reason for Visit * Reason Comments Medication Refill Encounter Details Date Type Department Care Team (Late st Contact Info) Description 07/13/2021 Refill [facility] INTERNAL MEDICINE [address] [place] [address] Hemanth Barnhart MD [address] [place] [address] Medication Refill Social History Tobacco [...] documented as of this encounter Care Teams Machining And Assembly Supervisor Relationship Specialty Start Date End Date Hemanth Barnhart MD [address] [place] [address] PCP - General Internal Medicine 08/20/15 11/01/21 documented as of this encounter
[2024-12-24 15:04] LABS: Reflex LDLD? No
[2024-12-26 18:57] LABS: TS Negative Control Passed; TS Panel A 1; TS Panel B 8; TS Positive Control Passed; TSpotTB Positive (Negative)
== END 2024-12-24 11:50 | disposition home or self-care (01) ==
LOC: HO.HHCL 11:49
PROVIDERS: PCP Family Medicine; Visit Provider Family Medicine
DX: Z11.7 Encounter for testing for latent tuberculosis infection (principal); E11.9 Type 2 diabetes mellitus without complications; E83.52 Hypercalcemia; D72.829 Elevated white blood cell count, unspecified; I48.0 Paroxysmal atrial fibrillation
CPT/HCPCS: 36415; 80053; 80061; 82306; 83036; 83615; 83970; 84443; 85025; 86481